=== PATIENT | male | born 1950 | race Caucasian/White ===

== ENCOUNTER 2017-07-27 19:29 | Inpatient (IN) ==
[2017-07-27 20:29] LABS: Basophils % 0.2 % (0.0-0.8); Eosinophils # 0.1 10*3/uL (0.0-0.87); Eosinophils % 0.4 % (0.00-10.9); Hematocrit 29.6 VOL% (42.0-52.0); Hemoglobin 9.4 GM/DL (14.0-18.0); Immature Granulocytes % 0.5 %; Immature Granulocytes Absolute 0.09 #; Lymphocytes # 1.6 10*3/uL (1.4-4.0); Lymphocytes % 8.9 % (21.2-54.2); Mean Corpuscular HGB Conc 31.8 GM/DL (32-36); Mean Corpuscular Hemoglobin 28 PG (27-34); Mean Corpuscular Volume 87.3 FL (87-102); Mean Platelet Volume 9.7 FL (9.6-12.0); Monocytes # 1.4 10*3/uL (0.11-0.8); Monocytes % 7.9 % (1.7-12.7); Neutrophils # 14.6 10*3/uL (1.4-7.4); Neutrophils % 82.1 % (38.7-73.9); Platelet Count 364 T/CUMM (130-400); Red Blood Count 3.39 MC/CUMM (3.8-5.5); Red Cell Distribution Width 15.6 % (9.3-17.3); White Blood Count 17.8 T/CUMM (4-12)
[2017-07-27 20:41] LABS: Alanine Aminotransferase 43 U/L (16-61); Albumin 2.3 G/DL (3.4-5.0); Alkaline Phosphatase 124 U/L (45-117); Aspartate Amino Transferase 25 U/L (0-37); Bilirubin,Total < 0.39 MG/DL (0.2-1.0); Blood Urea Nitrogen 117 MG/DL (7-18); Calcium 9.2 MG/DL (8.5-10.1); Glucose 106 MG/DL (74-106); Magnesium 2.9 MG/DL (1.8-2.4); Osmolality,Calculated 315.4 MOS/KG (273-304); Potassium 4.2 MMOL/L (3.5-5.1); Sodium 140 MMOL/L (136-145); Total Protein 8.1 G/DL (6.4-8.3)
[2017-07-27] MEDS ORDERED: SODIUM CHLORIDE 0.9% 1,650 ML IV ONE (20:41)
[2017-07-27] MEDS ORDERED: LEVOFLOXACIN INJ 750 MG in PREMIX 1 EACH IV SCH (21:00)
[2017-07-27] MEDS ORDERED: LEVOFLOXACIN INJ 150 ML IV ONE (21:16)
--- NOTE | 2017-07-27 22:04 | Emergency Department Note ---
Arrival - Arrival Chief Complaint: Upper Respiratory Stated Complaint: URI ED Nursing Triage Note: Per facility pt had a positive chest x-ray with infiltrate. Pt has posible pneumonia. Pt complaint of feeling bad and cough, fever since 1200 today. Facility states pt has slight AMS, according to EMS Fundraising Specialist. Mode of Arrival: Stretcher Limitations: Physical Limitation (Dysarthria) Source: EMS, Old Records Reviewed (Records from long-term facility), RN Notes Reviewed Time Seen by Provider: 07/27/17 20:29 - History of Present Illness HPI Narrative: The patient has a history of CVA and closed head injury. He is not able to communicate very much at all so the history is very limited. The secondhand report I get from the nursing facility says he has had a cough, fever and possibly altered mental status today. Apparently a chest x-ray was done which showed pneumonia. Allergies/Adverse Reactions: Allergies Allergy/AdvReac Type Severity Reaction Status Date / Time Penicillins AdvReac Unknown/Unable Verified 07/27/17 19:54 to obtain Home Medications: Home Medications Medication Instructions Recorded Confirmed Type Doxazosin [Cardura] 4 mg PER TUBE BEDTIME 03/31/15 07/27/17 History HYDROcodone/ACETAMIN 5-325 [[place] 1 tablet PER TUBE Q6H PRN 03/31/15 07/27/17 History 5-325] Losartan [Cozaar] 50 mg PER TUBE DAILY 03/31/15 07/27/17 History Tamsulosin [Flomax] 0.4 mg PER TUBE DAILY 03/31/15 07/27/17 History diazePAM [Valium] 2 mg PER TUBE TID 03/31/15 07/27/17 History Dextran 70/Hypromellose/Pf [Tears 2 drops BOTH EYES BEDTIME 07/27/17 07/27/17 History Naturale Free] Mag Hydrox/Aluminum Hyd/Simeth 30 ml PER TUBE Q4H PRN MDD 3 doses 07/27/1707/27 History [Maalox Maximum Strength Susp] in 24 hours Methenamine Hippurate [Hiprex] 1,000 gm PER TUBE BID 07/27/17 07/27/17 History Omeprazole 40 mg PER TUBE DAILY 07/27/17 07/27/17 History Ondansetron Tab [Zofran Tab] 4 mg PER TUBE Q8H PRN 07/27/17 07/27/17 History Review of System - Review of System ROS unobtainable: other (Dysarthria) - Review of System Constitutional: Present: fever Respiratory: Present: cough Medical,Surgical,& Family Hx - Medical History Cardio: History of: Hypertension Neurology: History of: Cerebrovascular Accident, Neurological Problems (brain injury) Respiratory: History of: COPD Genitourinary: History of: Prostate Problems (BPH) Musculoskeletal: History of: Musculoskeletal Problems (CHRONIC PAIN) Hematology: History of: Anemia - Surgical History Abdominal Surgeries: Patient denies: Abdominal Surgery, Appendectomy, Cholecystectomy - Family History Family History: noncontributory - Social History Smoking Status: Unknown if ever smoked Frequency of Alcohol Use: None Type of Drug Use: None Exam Physical Examination: GENERAL: Lethargic but arousable. Frail, chronically ill appearing. Speech is unintelligible. No acute distress. HEENT: Normocephalic and atraumatic. There is no nasal drainage. No pharyngeal erythema or exudate. Mucous membranes are very dry. NECK: Normal inspection. Supple. No lymphadenopathy or meningismus. Patient tends to hold his head to the left. LUNGS: No respiratory distress. Rales on both bases, left greater than right. HEART: Regular tachycardia. ABDOMEN: Soft, nontender and nondistended with normoactive bowel sounds. PEG tube in place. No tenderness, erythema or drainage around the PEG. BACK: Normal inspection. SKIN: Color normal. Warm and dry. EXTREMITIES: Nontender. Very thin. Patient capable of very little movement of the legs. NEUROLOGICAL/PSYCHIATRIC: Cannot assess orientation due to unintelligible speech. He is somewhat lethargic but arousable. Not able to cooperate fully with neuro exam. It is not clear whether this is baseline or not. He moves both upper extremities spontaneously. He is not capable of raising his lower extremities off of the table although he does move them a little bit. Sensation appears to be intact. Vital Signs: Vital Signs Temperature 100.1 F H 07/27/17 19:30 Pulse Rate 115 H 07/27/17 19:30 Respiratory Rate 26 H 07/27/17 20:15 Blood Pressure 101/75 07/27/17 19:30 O2 Sat by Pulse Oximetry 95 07/27/17 19:30 Course - Reevaluation(s) Reevaluation #1: I have discussed the patient with the hospitalist service who will see him and admit. Time: 22:04 Results - Labs CBC & BMP: 07/27/17 20:08 07/27/17 20:08 Lab Results: I have reviewed the patients labs Labs: Laboratory Tests 07/27/17 07/27/17 20:08 20:08 Calculated Osmolality 315.4 H Lactic Acid 1.0 Magnesium 2.9 H Total Bilirubin < 0.39 AST 25 ALT 43 Alkaline Phosphatase 124 H Globulin 5.8 H Disposition Clinical Impression: Pneumonia, Dehydration, Anemia Condition: Guarded Time of Disposition: 22:04
[2017-07-27 22:52] LABS: Apearance,Urine CLOUDY (Clear); Bilirubin,Urine Negative (Negative); Blood, Urine Moderate mg/dL (Negative); Glucose,Urine (UA) Negative (Negative); Ketones,Urine Negative (Negative); Nitrite,Urine Negative (Negative); Protein,Urine 30 MG/DL; RBC,Urine 47 /HPF (0-4); Urine Color Yellow (Yellow); Urine Urobilinogen < 2.0 EU/DL (0.2-1.0); WBC,Urine 579 /HPF (0-6)
[2017-07-27] MEDS ORDERED: ACETAMINOPHEN 325 MG TABLET PEG PRN (23:14)
[2017-07-27] MEDS ORDERED: ONDANSETRON 4 MG/2 ML VIAL IV PRN (23:14)
[2017-07-27] MEDS ORDERED: ALUMINUM/MAGNES/SIMETH MAX STR 30 ML UDCUP PER TUBE PRN (23:23)
--- NOTE | 2017-07-27 23:41 | Hospitalist History & Physical ---
Assessment and Plan - Time spent with patient Time spent with patient: Greater than 30 minutes (1) Severe sepsis Status: Acute Assessment and plan: Admit to hospitalist services. Monitored bed. Severe sepsis criteria: HR 115, RR 26, WBC 17.8, Source of infection: pneumonia and UTI, Creatinine 2.7. Initial Lactic acid was 1.0 in ED. Sepsis orders initiated in ED. Patient received fluid bolus, antibiotics and repeat lactic acid was ordered. Continue hydration with NS at 75 ml/hr. Continue antibiotic therapy with Levaquin 750 mg IV Q24 hours, pharmacy to renally dose to cover pneumonia and UTI. Blood cultures and urine cultures obtained in ED; follow. Repeat CBC and BMP in am. Current Visit: Yes (2) Pneumonia Status: Acute Assessment and plan: As above for Severe sepsis. DuoNebs Q6 and Q4 PRN. Repeat CXR in 48 hours. Current Visit: Yes (3) UTI (urinary tract infection) Status: Acute Assessment and plan: As above for Severe Sepsis. Current Visit: Yes (4) Acute kidney injury Status: Acute Assessment and plan: NS bolus given in ED per Sepsis protocol. Continue with gentle IV hydration with NS at 75 ml/hr. Repeat BMP in am. Current Visit: Yes (5) Hypermagnesemia Status: Acute Assessment and plan: Continue hydration. Repeat magnesium in am. Current Visit: Yes (6) Hypertension Status: Acute Assessment and plan: BP stable at this time. Continue home medications. Monitor. Current Visit: Yes (7) Anemia Status: Chronic Assessment and plan: Chronically anemic. Repeat CBC in am. Current Visit: Yes (8) DVT prophylaxis Status: Acute Assessment and plan: Lovenox 30 mg SQ daily. Current Visit: Yes History of Present Illness Chief complaint: Fever, Cough History of present illness: Mr. Gutierrez is a 66 year old male with a past medical history of CVA, closed head injury, HTN, BPH, anemia, GERD, constipation, and PEG tube placement who was to the ED tonight by prison staff with reports of fever, cough, and CXR consistent with pneumonia. Mr. Gutierrez communicates very little, so all history was obtained from ED staff and prison records. In the ED, his vitals were temp 100.1, HR 115, RR 26, BP 101/75 and O2 sats 95% on RA. Significant labs include WBC 17.8, H/H 9.4/29.6, Creatinine 2.7, Magnesium 2.9, and Lactic acid 1.0. UA indicates a UTI as well. Hospitalist services were consulted, and the patient will be admitted for further evaluation and treatment. Home medications were reviewed and reconciled. This patient is a full code. Home Medications Medication Instructions Recorded Confirmed Type Doxazosin [Cardura] 4 mg PER TUBE BEDTIME 03/31/15 07/27/17 History HYDROcodone/ACETAMIN 5-325 [[place] 1 tablet PER TUBE Q6H PRN 03/31/15 07/27/17 History 5-325] Losartan [Cozaar] 50 mg PER TUBE DAILY 03/31/15 07/27/17 History Tamsulosin [Flomax] 0.4 mg PER TUBE DAILY 03/31/15 07/27/17 History diazePAM [Valium] 2 mg PER TUBE TID 03/31/15 07/27/17 History Dextran 70/Hypromellose/Pf [Tears 2 drops BOTH EYES BEDTIME 07/27/17 07/27/17 History Naturale Free] Mag Hydrox/Aluminum Hyd/Simeth 30 ml PER TUBE Q4H PRN MDD 3 doses 07/27/1707/27 History [Maalox Maximum Strength Susp] in 24 hours Methenamine Hippurate [Hiprex] 1,000 gm PER TUBE BID 07/27/17 07/27/17 History Omeprazole 40 mg PER TUBE DAILY 07/27/17 07/27/17 History Ondansetron Tab [Zofran Tab] 4 mg PER TUBE Q8H PRN 07/27/17 07/27/17 History Allergies Allergy/AdvReac Type Severity Reaction Status Date / Time Penicillins AdvReac Unknown/Unable Verified 07/27/17 19:54 to obtain Medical,Surgical,& Family Hx - Medical History Cardio: History of: Hypertension Neurology: History of: Cerebrovascular Accident, Neurological Problems (brain injury) Respiratory: History of: COPD Genitourinary: History of: Prostate Problems (BPH) Musculoskeletal: History of: Musculoskeletal Problems (CHRONIC PAIN) Hematology: History of: Anemia - Surgical History Surgical History: noncontributory Abdominal Surgeries: Surgical HX of: Abdominal Surgery (PEG tube placement ) - Social History Smoking Status: Unknown if ever smoked Time spent discussing smoking cessation with patient: (Patient unable to communicate.) Frequency of Alcohol Use: None Type of Drug Use: None Marital Status: Single Lives With:: long term Functional capacity: bed bound ROS unobtainable: due to mental status (Patient unable to communicate due to Hx of CVA and closed head injury. Per prison staff, patient has had fever and cough. ) Exam - Constitutional Vitals: Period Temp Pulse Resp BP Sys/Martins Pulse Ox Last 24 Hr 100.1 F-100.1 F 115-115 26-26 101-101/75-75 95 Exam: Constitutional System: Low grade fever. Awake, alert and oriented x 2. [No] distress. [No] tremulousness. Head: Normocephalic, atraumatic. Ears, Nose and Throat System: No pain or tenderness. No epistaxis or discharge Eyes System: Pupils equal, round, and reactive. Extraocular muscles intact. Neck: Supple, without adenopathy, [No] jugular venous distention. No thyromegaly , neck mass, or prior surgery apparent. Respiratory System: Loose cough present, no sputum production. Chest [clear] to auscultation anteriorly, diminished posteriorly. Cardiovascular System: Heart with [tachycardic] rate and regular rhythm. [No] murmur. GI System: Abdomen [soft], [non]tender. [Normo]active bowel sounds present. PEG tube noted. Musculoskeletal System: Limbs with [no] pedal edema. [Full] distal pulses. Normal capillary refill. Neurological System: Minimal verbal communication. [No other discernable] sensory deficit. Psychiatric System: Minimal verbal communication. Results - Labs CBC & BMP: 07/27/17 20:08 07/27/17 20:08 Lab Results: I have reviewed the past 24 hour labs - Diagnostic Findings Procedure: Chest x-ray: other (Report pending. ) Sepsis - Sepsis Classification of Sepsis: Severe Sepsis Sepsis documentation within 6 hours of presentation: fluid change - Physical Exam Respiratory exam: clear to auscultation bilaterally (anteriorly), decreased breath sounds (posteriorly ) Capillary Refill: Less Than 3 Seconds Peripheral pulses: Radial (L): 5+, Radial (R): 5+, Dorsalis Pedis (L) PM: 5+, Dorsalis Pedis (R) PM: 5+, Posterior Tibialis (L): 5+, Posterior Tibialis (R): 5 + Cardiovascular exam: tachycardia Skin exam: normal color
[2017-07-28] MEDS ORDERED: ALBUTEROL/IPRATROPIUM 3 ML NEB RESP TX PRN (00:05)
[2017-07-28] MEDS: ALBUTEROL/IPRATROPIUM 3 ML NEB RESP TX SCH ×4 (00:20→19:35)
[2017-07-28] MEDS: SODIUM CHLORIDE 0.9% 1,000 ML IV SCH ×2 (00:30→13:41)
[2017-07-28 01:14] LABS: Basophils % 0.1 % (0.0-0.8); Eosinophils # 0.1 10*3/uL (0.0-0.87); Eosinophils % 0.6 % (0.00-10.9); Hematocrit 27.4 VOL% (42.0-52.0); Hemoglobin 8.5 GM/DL (14.0-18.0); Immature Granulocytes % 0.6 %; Immature Granulocytes Absolute 0.08 #; Lymphocytes # 1.9 10*3/uL (1.4-4.0); Lymphocytes % 13.5 % (21.2-54.2); Mean Corpuscular Hemoglobin 28 PG (27-34); Mean Corpuscular Volume 89.5 FL (87-102); Mean Platelet Volume 10.1 FL (9.6-12.0); Monocytes % 7.5 % (1.7-12.7); Neutrophils # 10.8 10*3/uL (1.4-7.4); Neutrophils % 77.7 % (38.7-73.9); Platelet Count 306 T/CUMM (130-400); Red Blood Count 3.06 MC/CUMM (3.8-5.5); Red Cell Distribution Width 15.6 % (9.3-17.3); White Blood Count 13.9 T/CUMM (4-12)
[2017-07-28 02:05] LABS: Calcium 8.3 MG/DL (8.5-10.1); Osmolality,Calculated 320.7 MOS/KG (273-304); Potassium 4.1 MMOL/L (3.5-5.1)
[2017-07-28] MEDS: DOXAZOSIN 4 MG TABLET PER TUBE SCH ×2 (02:49→21:36)
--- NOTE | 2017-07-28 07:52 | XRay Report ---
XR chest 1V portable Indication: Upper respiratory infection possible pneumonia Comparison: Chest x-ray May 09, 2007 Technique: Single Findings: Igom-[id number] cardiomegaly. [id number] bilateral infrahilar atelectasis/consolidation. Visualized osseous and surrounding soft tissue structures demonstrate no acute abnormality. IMPRESSION: As above. PROCEDURE INTERPRETED AT [facility] DEPARTMENT OF RADIOLOGY Final Report Signed by: Dr Nicho Murphy
[2017-07-28] MEDS ORDERED: ENOXAPARIN 30 MG/0.3 ML SYRINGE SUBCUT SCH (09:00)
[2017-07-28] MEDS ORDERED: LOSARTAN 50 MG TABLET PER TUBE SCH (09:00)
[2017-07-28] MEDS: LANSOPRAZOLE ODT 30 MG TABLET PO SCH (09:16)
[2017-07-28] MEDS: DIAZEPAM 2 MG TABLET PER TUBE SCH ×3 (09:17→21:35)
[2017-07-28] MEDS: TAMSULOSIN 0.4 MG CAPSULE PO SCH (09:17)
[2017-07-28] MEDS: METHENAMINE HIPPURATE 1 GM TABLET PER TUBE SCH ×2 (09:18→21:35)
[2017-07-28] MEDS ORDERED: DEXTROSE 50% 25 GM/50 ML SYRINGE IV PRN (09:26)
[2017-07-28] MEDS ORDERED: GLUCAGON 1 MG VIAL IM PRN (09:26)
--- NOTE | 2017-07-28 12:28 | Hospitalist Progress Note ---
Assessment and Plan - Time spent with patient Time spent with patient: Less than 30 minutes (1) Pneumonia Status: Acute Assessment and plan: 07/28/17 Pneumonia: continue antibiotic coverage and duonebs. Blood cultures obtained in the ED, pending results. UTI: continue antibiotic coverage. Urine culture obtained in the ED, pending results. HTN: Chronic: Controlled: continue current medications and treatment. Acute renal injury: improving down to BUN 107 and creatinine 2.20: down from 117 & 2.70. ontinue IV fluids at 75cc/hr; repeat a.m. labs. Magnesium improving down to 2.5 from 2.9. repeat a.m. labs Chronic anemia: repeat a.m. labs and monitor H&H Will discuss with Dr Jesus for further recommendations with care. Current Visit: Yes (2) Hypermagnesemia Status: Acute Current Visit: Yes (3) UTI (urinary tract infection) Status: Acute Current Visit: Yes (4) Anemia Status: Chronic Current Visit: Yes Hospitalist: Subjective Interval history: Mr Gutierrez seen and chart reviewed. Significant history of closed heady injury , CVA, bed bound, HTN, admitted 07/27/17 for pneumonia and UTI sepsis. Blood and urine cultures obtained in the ED upon arrival and pending results. Patient is unable to clearly verbally communicate, but alert, awake and attempting to talk to me upon exam this morning. He is no apparent distress. 02 at 2l NC in use. No elevation in temperature noted this morning, BP stabel RR 22 ; O2 SAT 96. Exam - Constitutional Vitals: Period Temp Pulse Resp BP Sys/Martins Pulse Ox Last 24 Hr 97.3 F-100.1 F 51-128 18-36 101-124/69-78 94-99 General appearance: normal weight, no acute distress - Head Head exam: Present: normocephalic - Eye Eye exam: Present: EOMI - Neck Neck exam: Absent: thyromegaly - Respiratory Respiratory exam: Present: decreased breath sounds - Cardiovascular Cardiovascular exam: Present: regular rate and rhythm, tachycardia - GI/Abdominal GI/Abdominal exam: Present: normal bowel sounds, soft. Absent: guarding, tenderness, rebound - Extremities Exam Extremities exam: Present: normal capillary refill, other (contracted, pulses palpable). Absent: edema - Neurological Exam Neurological exam: Present: alert, other (minimal verbal communication (hx: CVA and closed head injury)) - Psychiatric Psychiatric exam: Absent: agitated, anxious - Skin Skin exam: Present: normal color, warm, dry Results - Labs CBC & BMP: 07/28/17 00:46 07/28/17 00:46 Lab Results: I have reviewed the past 24 hour labs
[2017-07-28] MEDS: POLYVINYL ALCOHOL 1.4% OPH SOLN 15 ML BOTTLE BOTH EYES SCH (21:36)
[2017-07-29] MEDS: ALBUTEROL/IPRATROPIUM 3 ML NEB RESP TX SCH ×4 (00:20→19:01)
[2017-07-29] MEDS: SODIUM CHLORIDE 0.9% 1,000 ML IV SCH (02:03)
[2017-07-29 06:08] LABS: Basophils % 0.1 % (0.0-0.8); Hematocrit 26.7 VOL% (42.0-52.0); Hemoglobin 8.2 GM/DL (14.0-18.0); Immature Granulocytes % 0.6 %; Immature Granulocytes Absolute 0.07 #; Lymphocytes # 1.3 10*3/uL (1.4-4.0); Lymphocytes % 10.7 % (21.2-54.2); Mean Corpuscular HGB Conc 30.7 GM/DL (32-36); Mean Corpuscular Hemoglobin 28 PG (27-34); Mean Corpuscular Volume 90.5 FL (87-102); Mean Platelet Volume 9.7 FL (9.6-12.0); Monocytes # 0.8 10*3/uL (0.11-0.8); Monocytes % 6.7 % (1.7-12.7); Neutrophils # 10.2 10*3/uL (1.4-7.4); Neutrophils % 81.9 % (38.7-73.9); Platelet Count 315 T/CUMM (130-400); Red Blood Count 2.95 MC/CUMM (3.8-5.5); Red Cell Distribution Width 15.6 % (9.3-17.3); White Blood Count 12.5 T/CUMM (4-12)
[2017-07-29 06:47] LABS: Calcium 8.9 MG/DL (8.5-10.1); Magnesium 2.6 MG/DL (1.8-2.4); Osmolality,Calculated 326.4 MOS/KG (273-304); Potassium 3.9 MMOL/L (3.5-5.1)
[2017-07-29 06:50] LABS: Calcium 8.9 MG/DL (8.5-10.1); Magnesium 2.4 MG/DL (1.8-2.4); Osmolality,Calculated 327.3 MOS/KG (273-304); Potassium 3.9 MMOL/L (3.5-5.1); Prealbumin 16.9 MG/DL (20-40)
--- NOTE | 2017-07-29 07:12 | XRay Report ---
XR chest 1V portable Indication: Pneumonia Comparison: 27 July 2017 Findings: The heart and mediastinum are normal in size and configuration. The pulmonary vascularity is normal in caliber. There is increased bilateral lower lung density is similar to previous exam. No other lung infiltrates, effusions, pneumothorax or other abnormality is demonstrated. Impression: No significant changes. PROCEDURE INTERPRETED AT [facility] DEPARTMENT OF RADIOLOGY Final Report Signed by: Dr. Paulino Campbell
[2017-07-29] MEDS: TAMSULOSIN 0.4 MG CAPSULE PO SCH (09:46)
[2017-07-29] MEDS: LANSOPRAZOLE ODT 30 MG TABLET PO SCH (09:46)
[2017-07-29] MEDS: DIAZEPAM 2 MG TABLET PER TUBE SCH ×3 (09:46→21:48)
[2017-07-29] MEDS: METHENAMINE HIPPURATE 1 GM TABLET PER TUBE SCH ×2 (09:46→21:48)
[2017-07-29] MEDS: ENOXAPARIN 40 MG/0.4 ML SYRINGE SUBCUT SCH (10:35)
--- NOTE | 2017-07-29 12:48 | Hospitalist Progress Note ---
Assessment and Plan - Time spent with patient Time spent with patient: Less than 30 minutes (1) Pneumonia Status: Acute Assessment and plan: 07/28/17 Pneumonia: continue antibiotic coverage and duonebs. Blood cultures obtained in the ED, pending results. UTI: continue antibiotic coverage. Urine culture obtained in the ED, pending results. HTN: Chronic: Controlled: continue current medications and treatment. Acute renal injury: improving down to BUN 107 and creatinine 2.20: down from 117 & 2.70. ontinue IV fluids at 75cc/hr; repeat a.m. labs. Magnesium improving down to 2.5 from 2.9. repeat a.m. labs Chronic anemia: repeat a.m. labs and monitor H&H Will discuss with Dr Jesus for further recommendations with care. 07/29/17 Pneumonia: NO elevation in temperature; WBC down - 12.5 continue antibiotic duonebs; blood cultures pending final results UTI: continue antibiotic, Preliminary culture gram negative rods; final pending HTN: controlled: continue current medications ACUTE renal injury: Improved, BUN 71 and creatinine 1.60; Sodium increased to 154: discontinued NS and started 200cc free water flushes every 4 hours with PEG Magnesium 2.6 this a.m.: continue to monitor; repeat a.m. labs Chronic anemia: H&H 8.2 & 26.7: repeat am labs and monitor Will discuss with Dr Jesus for further recommendations with care. Current Visit: Yes (2) Hypermagnesemia Status: Acute Current Visit: Yes (3) UTI (urinary tract infection) Status: Acute Current Visit: Yes (4) Anemia Status: Chronic Current Visit: Yes Hospitalist: Subjective Interval history: Mr Gutierrez seen and chart reviewed. He appears a little more alert this morning , and can understand some answers (yes or no) when asked questions but not sure how coherent he actually is. Patient is currently receiving PEG tube feedings. Exam - Constitutional Vitals: Period Temp Pulse Resp BP Sys/Martins Pulse Ox Last 24 Hr 97.7 F-99.2 F 101-124 20-32 106-124/65-74 92-99 General appearance: no acute distress, under weight - Head Head exam: Present: normocephalic - Eye Eye exam: Present: EOMI - Neck Neck exam: Absent: thyromegaly - Respiratory Respiratory exam: Present: decreased breath sounds. Absent: accessory muscle use, stridor, wheezes - Cardiovascular Cardiovascular exam: Present: regular rate and rhythm - GI/Abdominal GI/Abdominal exam: Present: normal bowel sounds, soft. Absent: rebound - Extremities Exam Extremities exam: Present: other (bilaterally contracted). Absent: edema - Neurological Exam Neurological exam: Present: alert, other (minimal verbal communication ability) - Psychiatric Psychiatric exam: Absent: agitated, anxious - Skin Skin exam: Present: normal color, warm, dry Results - Labs CBC & BMP: 07/29/17 04:51 07/29/17 04:51 Lab Results: I have reviewed the past 24 hour labs - Diagnostic Findings Procedure: Chest x-ray: report reviewed by me (no significant changes)
[2017-07-29] MEDS: POLYVINYL ALCOHOL 1.4% OPH SOLN 15 ML BOTTLE BOTH EYES SCH (21:48)
[2017-07-29] MEDS: DOXAZOSIN 4 MG TABLET PER TUBE SCH (21:48)
[2017-07-29] MEDS: LEVOFLOXACIN INJ 750 MG in PREMIX 1 EACH IV SCH (21:48)
[2017-07-30] MEDS: ALBUTEROL/IPRATROPIUM 3 ML NEB RESP TX SCH ×4 (00:45→19:31)
[2017-07-30 03:16] LABS: Basophils % 0.2 % (0.0-0.8); Eosinophils % 0.3 % (0.00-10.9); Hematocrit 27.4 VOL% (42.0-52.0); Hemoglobin 8.1 GM/DL (14.0-18.0); Immature Granulocytes % 0.8 %; Immature Granulocytes Absolute 0.09 #; Lymphocytes # 1.7 10*3/uL (1.4-4.0); Mean Corpuscular HGB Conc 29.6 GM/DL (32-36); Mean Corpuscular Hemoglobin 27 PG (27-34); Mean Corpuscular Volume 90.4 FL (87-102); Mean Platelet Volume 9.7 FL (9.6-12.0); Monocytes # 0.9 10*3/uL (0.11-0.8); Monocytes % 7.9 % (1.7-12.7); Neutrophils # 8.8 10*3/uL (1.4-7.4); Neutrophils % 75.8 % (38.7-73.9); Platelet Count 289 T/CUMM (130-400); Red Blood Count 3.03 MC/CUMM (3.8-5.5); Red Cell Distribution Width 15.6 % (9.3-17.3); White Blood Count 11.6 T/CUMM (4-12)
[2017-07-30 03:46] LABS: Calcium 8.6 MG/DL (8.5-10.1); Magnesium 2.3 MG/DL (1.8-2.4); Potassium 3.9 MMOL/L (3.5-5.1)
[2017-07-30] MEDS: TAMSULOSIN 0.4 MG CAPSULE PO SCH (08:58)
[2017-07-30] MEDS: ENOXAPARIN 40 MG/0.4 ML SYRINGE SUBCUT SCH (08:58)
[2017-07-30] MEDS: METHENAMINE HIPPURATE 1 GM TABLET PER TUBE SCH ×2 (08:58→21:55)
[2017-07-30] MEDS: LANSOPRAZOLE ODT 30 MG TABLET PO SCH (08:58)
[2017-07-30] MEDS: DIAZEPAM 2 MG TABLET PER TUBE SCH ×3 (08:58→21:55)
--- NOTE | 2017-07-30 09:23 | XRay Report ---
XR chest 1V portable Indication: Shortness of breath Comparison: 29 July 2017 Findings: The heart and mediastinum are stable in size and configuration. The pulmonary vascularity is normal in caliber. No lung infiltrates, effusions, pneumothorax or other abnormality is demonstrated. Impression: No acute cardiac pulmonary disease. PROCEDURE INTERPRETED AT [facility] DEPARTMENT OF RADIOLOGY Final Report Signed by: Dr. Paulino Campbell
--- NOTE | 2017-07-30 13:20 | Hospitalist Progress Note ---
Assessment and Plan - Time spent with patient Time spent with patient: Less than 30 minutes (1) Pneumonia Status: Acute Assessment and plan: 07/28/17 Pneumonia: continue antibiotic coverage and duonebs. Blood cultures obtained in the ED, pending results. UTI: continue antibiotic coverage. Urine culture obtained in the ED, pending results. HTN: Chronic: Controlled: continue current medications and treatment. Acute renal injury: improving down to BUN 107 and creatinine 2.20: down from 117 & 2.70. ontinue IV fluids at 75cc/hr; repeat a.m. labs. Magnesium improving down to 2.5 from 2.9. repeat a.m. labs Chronic anemia: repeat a.m. labs and monitor H&H Will discuss with Dr Asher for further recommendations with care. 07/29/17 Pneumonia: NO elevation in temperature; WBC down - 12.5 continue antibiotic duonebs; blood cultures pending final results UTI: continue antibiotic, Preliminary culture gram negative rods; final pending HTN: controlled: continue current medications ACUTE renal injury: Improved, BUN 71 and creatinine 1.60; Sodium increased to 154: discontinued NS and started 200cc free water flushes every 4 hours with PEG Magnesium 2.6 this a.m.: continue to monitor; repeat a.m. labs Chronic anemia: H&H 8.2 & 26.7: repeat am labs and monitor Will discuss with Dr Asher for further recommendations with care. 07/30/17 Pneumonia: continue levaquin, duonebs; final blood cultures pending results UTI: final culture: Proteus mirabilis and will add antibiotic coverage with sensitivity HTN: controlled current medications; discuss with Dr asher heart rate elevation; feels it is dehydration related and start D5W Acute Renal Injury: Improved; BUN 59 and creatinine 1.20 Sodium increased (157): will continue free water flushes every 4 hours 200cc w/ PEG and add D5W @ 75cc/hr Magnesium improved to 2.3 Chronic Anemia: H&H remains stable 8.1 & 27.4 repeat a.m. labs Will discuss with Dr Asher for further recommendations with care. Current Visit: Yes (2) Hypermagnesemia Status: Acute Current Visit: Yes (3) UTI (urinary tract infection) Status: Acute Current Visit: Yes (4) Anemia Status: Chronic Current Visit: Yes Hospitalist: Subjective Interval history: Mr Gutierrez seen and chart reviewed. He is a little more alert this morning. He complains of feeling "bad". Exam - Constitutional Vitals: Period Temp Pulse Resp BP Sys/Martins Pulse Ox Last 24 Hr 97.4 F-102.3 F 102-143 17-36 95-135/62-86 95-99 General appearance: no acute distress, under weight - Head Head exam: Present: normocephalic - Eye Eye exam: Present: EOMI - Neck Neck exam: Absent: thyromegaly - Respiratory Respiratory exam: Present: decreased breath sounds. Absent: wheezes - Cardiovascular Cardiovascular exam: Present: regular rate and rhythm - GI/Abdominal GI/Abdominal exam: Present: normal bowel sounds, soft. Absent: tenderness, rebound - Extremities Exam Extremities exam: Present: other (contracted). Absent: edema - Neurological Exam Neurological exam: Present: alert - Psychiatric Psychiatric exam: Present: normal affect, normal mood. Absent: agitated, anxious - Skin Skin exam: Present: normal color, warm, dry Results - Labs CBC & BMP: 07/30/17 02:06 07/30/17 02:06 Lab Results: I have reviewed the past 24 hour labs - Diagnostic Findings Procedure: Chest x-ray: report reviewed by me (nothing acute 07/30/17)
[2017-07-30] MEDS: DEXTROSE 5% 1,000 ML IV SCH (14:32)
[2017-07-30] MEDS: ERTAPENEM 1,000 MG in SODIUM CHLORIDE 0.9% 50 ML IV SCH (16:54)
[2017-07-30] MEDS: POLYVINYL ALCOHOL 1.4% OPH SOLN 15 ML BOTTLE BOTH EYES SCH (21:55)
[2017-07-30] MEDS: DOXAZOSIN 4 MG TABLET PER TUBE SCH (21:55)
[2017-07-31] MEDS: ALBUTEROL/IPRATROPIUM 3 ML NEB RESP TX SCH ×4 (00:24→17:52)
[2017-07-31] MEDS: DEXTROSE 5% 1,000 ML IV SCH ×2 (03:25→20:29)
[2017-07-31 06:55] LABS: Basophils % 0.2 % (0.0-0.8); Eosinophils # 0.2 10*3/uL (0.0-0.87); Eosinophils % 1.3 % (0.00-10.9); Hematocrit 24.6 VOL% (42.0-52.0); Hemoglobin 7.7 GM/DL (14.0-18.0); Immature Granulocytes % 0.5 %; Immature Granulocytes Absolute 0.07 #; Lymphocytes # 1.8 10*3/uL (1.4-4.0); Lymphocytes % 13.9 % (21.2-54.2); Mean Corpuscular HGB Conc 31.3 GM/DL (32-36); Mean Corpuscular Hemoglobin 28 PG (27-34); Mean Corpuscular Volume 89.8 FL (87-102); Monocytes # 0.9 10*3/uL (0.11-0.8); Monocytes % 6.9 % (1.7-12.7); Neutrophils # 10.2 10*3/uL (1.4-7.4); Neutrophils % 77.2 % (38.7-73.9); Platelet Count 291 T/CUMM (130-400); Red Blood Count 2.74 MC/CUMM (3.8-5.5); Red Cell Distribution Width 15.7 % (9.3-17.3); White Blood Count 13.3 T/CUMM (4-12)
[2017-07-31 07:31] LABS: Calcium 8.3 MG/DL (8.5-10.1); Magnesium 1.9 MG/DL (1.8-2.4); Osmolality,Calculated 309.9 MOS/KG (273-304); Potassium 3.8 MMOL/L (3.5-5.1)
[2017-07-31] MEDS: ENOXAPARIN 40 MG/0.4 ML SYRINGE SUBCUT SCH (09:09)
[2017-07-31] MEDS: LANSOPRAZOLE ODT 30 MG TABLET PO SCH (09:09)
[2017-07-31] MEDS: TAMSULOSIN 0.4 MG CAPSULE PO SCH (09:09)
[2017-07-31] MEDS: DIAZEPAM 2 MG TABLET PER TUBE SCH ×3 (09:09→22:05)
[2017-07-31] MEDS: METHENAMINE HIPPURATE 1 GM TABLET PER TUBE SCH ×2 (09:15→22:06)
--- NOTE | 2017-07-31 10:48 | Hospitalist Progress Note ---
Assessment and Plan (1) Dehydration Status: Acute Assessment and plan: Impression: 1. Volume depletion/dehydration 2. Prior stroke with right-sided hemiparesis 3. Questionable pneumonia Plan: Continue current care. This will include volume resuscitation and antibiotics. This note was completed using [employer] voice recognition software. There may be circuit breaker mechanic errors as a result. Current Visit: Yes Hospitalist: Subjective Interval history: Follow-up dehydration and possible pneumonia. The patient lies on the bed and will follow suggestions, but does not speak. He apparently has suffered a previous left hemispheric cerebral infarction. Staff has noted some difficulty breathing, and this appears to be primarily due to an increased amount of oral secretions which the patient is not able to handle. Exam - Constitutional Vitals: Period Temp Pulse Resp BP Sys/Martins Pulse Ox Last 24 Hr 95.4 F-100.7 F 100-130 18-40 94-118/55-78 95-99 Vital signs are noted above. Oral cavity has multiple dried exudates on the roof of the mouth and the tongue. Heart is regular with distant tones. He has rhonchi in the chest. PEG tube is intact. Bowel sounds are positive. He is awake and looks around, but does not speak. Results - Labs CBC & BMP: 07/31/17 04:57 07/31/17 04:57 Lab Results: I have reviewed the past 24 hour labs (Kidney function is improving )
[2017-07-31] MEDS: ERTAPENEM 1,000 MG in SODIUM CHLORIDE 0.9% 50 ML IV SCH (16:34)
[2017-07-31] MEDS: POLYVINYL ALCOHOL 1.4% OPH SOLN 15 ML BOTTLE BOTH EYES SCH (22:06)
[2017-07-31] MEDS: DOXAZOSIN 4 MG TABLET PER TUBE SCH (22:06)
[2017-07-31] MEDS: LEVOFLOXACIN INJ 750 MG in PREMIX 1 EACH IV SCH (22:07)
[2017-08-01] MEDS: ALBUTEROL/IPRATROPIUM 3 ML NEB RESP TX SCH ×4 (01:10→19:33)
[2017-08-01] MEDS: TAMSULOSIN 0.4 MG CAPSULE PO SCH (08:41)
[2017-08-01] MEDS: ENOXAPARIN 40 MG/0.4 ML SYRINGE SUBCUT SCH (08:41)
[2017-08-01] MEDS: LANSOPRAZOLE ODT 30 MG TABLET PO SCH (08:41)
[2017-08-01] MEDS: METHENAMINE HIPPURATE 1 GM TABLET PER TUBE SCH ×2 (08:41→21:35)
[2017-08-01] MEDS: DIAZEPAM 2 MG TABLET PER TUBE SCH ×3 (08:41→21:36)
--- NOTE | 2017-08-01 10:58 | Hospitalist Progress Note ---
Assessment and Plan (1) Dehydration Status: Acute Assessment and plan: Impression: 1. Volume depletion/dehydration, improved 2. Prior stroke with right-sided hemiparesis 3. Pneumonia, with improving chest x-ray Plan: Discontinue antibiotics. Recheck chest x-ray and lab in the morning. He should be able to go back to the intermediate if these results look good. This note was completed using [employer] voice recognition software. There may be medication care manager errors as a result. Current Visit: Yes Hospitalist: Subjective Interval history: Follow-up pneumonia, acute kidney injury, old stroke. The patient's chest x-ray is cleared. I think we can discontinue his IV antibiotics. His kidney function has returned to normal. He is still poorly responsive, but I do not know his baseline. However, I suspect he is close. Exam - Constitutional Vitals: Period Temp Pulse Resp BP Sys/Martins Pulse Ox Last 24 Hr 97.2 F-98.5 F 100-139 16-36 81-118/57-70 94-99 Vital signs are noted above. 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 Heart is regular with very distant tones. He has a few scattered rhonchi in the chest. PEG site looks good. He awakens and looks around, but does not follow suggestions Results - Labs CBC & BMP: 07/31/17 04:57 07/31/17 04:57
[2017-08-01] MEDS: DEXTROSE 5% 1,000 ML IV SCH (18:28)
[2017-08-01] MEDS: DOXAZOSIN 4 MG TABLET PER TUBE SCH (21:35)
[2017-08-01] MEDS: POLYVINYL ALCOHOL 1.4% OPH SOLN 15 ML BOTTLE BOTH EYES SCH (21:35)
[2017-08-02] MEDS: ALBUTEROL/IPRATROPIUM 3 ML NEB RESP TX SCH ×4 (00:48→20:00)
[2017-08-02 06:31] LABS: Basophils % 0.2 % (0.0-0.8); Eosinophils # 0.3 10*3/uL (0.0-0.87); Hemoglobin 7.9 GM/DL (14.0-18.0); Immature Granulocytes % 0.8 %; Lymphocytes # 1.9 10*3/uL (1.4-4.0); Lymphocytes % 15.3 % (21.2-54.2); Mean Corpuscular HGB Conc 31.6 GM/DL (32-36); Mean Corpuscular Hemoglobin 28 PG (27-34); Mean Platelet Volume 10.1 FL (9.6-12.0); Monocytes # 0.7 10*3/uL (0.11-0.8); Monocytes % 5.4 % (1.7-12.7); Neutrophils # 9.4 10*3/uL (1.4-7.4); Neutrophils % 76.3 % (38.7-73.9); Platelet Count 292 T/CUMM (130-400); Red Blood Count 2.84 MC/CUMM (3.8-5.5); Red Cell Distribution Width 15.6 % (9.3-17.3); White Blood Count 12.3 T/CUMM (4-12)
[2017-08-02 07:03] LABS: Calcium 8.1 MG/DL (8.5-10.1); Magnesium 1.8 MG/DL (1.8-2.4); Osmolality,Calculated 286.5 MOS/KG (273-304); Phosphorous 2.7 MG/DL (2.5-4.9); Potassium 4.2 MMOL/L (3.5-5.1); Prealbumin 15.6 MG/DL (20-40)
--- NOTE | 2017-08-02 09:21 | XRay Report ---
History: Pneumonia Date: 08/02/2017 Study: Chest x-ray AP portable Comparison exam: July 30, 2017 The cardiac silhouette is not enlarged. The mediastinal contour is unchanged. The pulmonary vasculature is not engorged. There is some increasing atelectasis/infiltrate in the lingula and left lower lobe compatible with pneumonia. There is mild platelike scar or subsegmental atelectasis in the right mid to lower lung. Osseous structures are unchanged. Impression: Increasing left basilar infiltrate compatible with pneumonia. Follow-up films recommended PROCEDURE INTERPRETED AT [facility] DEPARTMENT OF RADIOLOGY Final Report Signed by: Dr. Zari Jensen
[2017-08-02] MEDS: DEXTROSE 5% 1,000 ML IV SCH (09:28)
[2017-08-02] MEDS: ENOXAPARIN 40 MG/0.4 ML SYRINGE SUBCUT SCH (09:30)
[2017-08-02] MEDS: METHENAMINE HIPPURATE 1 GM TABLET PER TUBE SCH ×2 (09:31→22:30)
[2017-08-02] MEDS: TAMSULOSIN 0.4 MG CAPSULE PO SCH (09:31)
[2017-08-02] MEDS: LANSOPRAZOLE ODT 30 MG TABLET PO SCH (09:31)
[2017-08-02] MEDS: DIAZEPAM 2 MG TABLET PER TUBE SCH (09:31)
[2017-08-02] MEDS ORDERED: SODIUM CHLORIDE 0.9% 250 ML IV PRN ×2 (11:52→12:23)
--- NOTE | 2017-08-02 13:13 | Discharge Summary ---
<Tahira Mendez - Last Filed: 08/02/17 12:37> Hospital Course - Hospital Course Hospital Course: Mr Gutierrez 66 y/o W/PMHx of CVA, closed head injury, COPD, Anemia, with limited verbal communication ability presented [facility] for further evaluation of fever, cough and CXR consistent with pneumonia. IN ED: his vitals were temp 100.1, HR 115, RR 26, BP 101/75 and O2 sats 95% on RA. Significant labs include WBC 17.8, H/H 9.4/29.6, Creatinine 2.7, Magnesium 2.9, and Lactic acid 1.0. UA indicates a UTI as well. Hospitalist services were consulted, and the patient will be admitted on monitored bed for further evaluation and treatment. Patient with pneumonia and sepsis, acute renal failure which appears acutely related to being dehydrated. IV fluids for dehydration, added free water through his PEG tube. Renal dose Antibiotics with invanz for pneumonia with breathing treatments, blood cultures drawn in ED. Urine noted for UTI and urine culture obtained. Pneumonia improved with antibiotics, breathing treatments. Hypernatremia resolved. Acute renal failure improved with hydration. Blood culture final was negative for growth. Urine culture final resulted Proteus Mirabilis sensitive to Invanz and treated with abx. Today 08/02/17 Patient is stable. Vital signs improved and without reoccurrence of temperature elevation. Labs improved. [facility] be [facility] for [facility] of care with a few more days of levaquin for pneumonia and ceftin for his uti. Patient has evidence of anemia of chronic disease and will receive 1 unit of packed red blood cells prior to returning to the [facility] today. He will continue on tube feedings with free water through his PEG tube and will remained strict n.p.o. Patient seen and examined. Hospital course reviewed and edited. Diagnosis - Discharge Diagnosis (1) Pneumonia Status: Acute (2) Hypermagnesemia Status: Acute (3) UTI (urinary tract infection) Status: Acute (4) Anemia Status: Chronic Discharge Plan - Discharge Data Disposition: Disch/Xfer to Snf - Discharge Medications New Acetaminophen Tab [Tylenol Tab] 325 mg PEG Q4H PRN tablet PRN Reason: fever, headache/body aches Lansoprazole Odt Tab [Prevacid Solutab] 30 mg PO DAILY tablet Zinc Oxide Paste [Desitin Paste] 1 applic TOP PRN PRN applic PRN Reason: Diaper Rash Cefuroxime Tab [Ceftin] 500 mg PO BID #10 tablet Albuterol/Ipratropium Neb [Duoneb] 3 ml RESP TX RT Q6H Levofloxacin Tab [Levaquin Tab] 750 mg PO DAILY #5 tablet Continue Tamsulosin [Flomax] 0.4 mg PER TUBE DAILY Losartan [Cozaar] 50 mg PER TUBE DAILY Doxazosin [Cardura] 4 mg PER TUBE BEDTIME Methenamine Hippurate [Hiprex] 1,000 gm PER TUBE BID Ondansetron Tab [Zofran Tab] 4 mg PER TUBE Q8H PRN PRN Reason: Nausea/Vomiting Dextran 70/Hypromellose/Pf [Tears Naturale Free] 2 drops BOTH EYES BEDTIME Mag Hydrox/Aluminum Hyd/Simeth [Maalox Maximum Strength Susp] 30 ml PER TUBE Q4H PRN MDD 3 doses in 24 hours PRN Reason: Indigestion Changed diazePAM [Valium] 2 mg PER TUBE BID PRN #20 tablet PRN Reason: Agitation Discontinued HYDROcodone/ACETAMIN 5-325 [[place] 5-325] 1 tablet PER TUBE Q6H PRN PRN Reason: Pain Omeprazole 40 mg PER TUBE DAILY - Follow Up or Referral - Forms/Instructions Exam - Constitutional Vitals: Period Temp Pulse Resp BP Sys/Martins Pulse Ox Last 24 Hr 97.1 F-98.4 F 71-136 16-36 92-138/60-76 95-99 Discharge Results Procedures and tests throughout hospitalization: Pending Orders 08/02/17 04:37 Red Blood Cells Leuko Red Stat Type and Screen Stat Labs on day of discharge: Labs from last 24 hours 08/02/17 08/02/17 08/02/17 Unknown 04:39 04:39 WBC 12.3 H RBC 2.84 L Hgb 7.9 L Hct 25.0 L MCV 88.0 MCH 28 MCHC 31.6 L RDW 15.6 Plt Count 292 MPV 10.1 Neut % (Auto) 76.3 H Lymph % (Auto) 15.3 L [place] % (Auto) 5.4 Eos % (Auto) 2.0 Baso % (Auto) 0.2 Neut # (Auto) 9.4 H Lymph # (Auto) 1.9 [place] # (Auto) 0.7 Eos # (Auto) 0.3 Baso # (Auto) 0.0 Immature Gran % 0.8 Nucleated RBC % 0.0 Immature Gran # 0.10 Nucleated RBCs # 0.00 Immature Plt Fraction 0.0 Sodium 139 Potassium 4.2 Chloride 106 Carbon Dioxide 25 Anion Gap 12.2 BUN 39 H Creatinine 1.30 GFR Calculation 56 BUN/Creatinine Ratio 30.00 H Glucose 124 H Calculated Osmolality 286.5 Calcium 8.1 L Phosphorus 2.7 Magnesium 1.8 Prealbumin 15.6 L Blood Type B NEGATIVE Antibody Screen Crossmatch 08/02/17 04:37 WBC RBC Hgb Hct MCV MCH MCHC RDW Plt Count MPV Neut % (Auto) Lymph % (Auto) [place] % (Auto) Eos % (Auto) Baso % (Auto) Neut # (Auto) Lymph # (Auto) [place] # (Auto) Eos # (Auto) Baso # (Auto) Immature Gran % Nucleated RBC % Immature Gran # Nucleated RBCs # Immature Plt Fraction Sodium Potassium Chloride Carbon Dioxide Anion Gap BUN Creatinine GFR Calculation BUN/Creatinine Ratio Glucose Calculated Osmolality Calcium Phosphorus Magnesium Prealbumin Blood Type B NEGATIVE Antibody Screen Negative Crossmatch See Detail DS: Provider Date of admission: 07/27/17 22:19 Primary care physician: . No PCP Attending physician on admission: Kristie Tan MD Consults: 07/28/17 00:07 Consult to Pharmacy [CONS] Routine Reason for Pharmacy Consult: Adjust Meds Renal Funct Dose/Manage Antibiotics Comment: Renal dosing for Levaquin. Discharging clinician: Tahira Mendez NP <Inga Pascual - Last Filed: 08/02/17 14:34> Hospital Course - Time spent with patient Time with patient DS: Greater than 30 minutes (45 min) Discharge Plan - Discharge Data Condition at Discharge: Stable Discharge Diet: other (npo tube feeding two gerda HN with FOS RTH at 50 ml/hr with free water at 50 ml/hr ) Activity: resume usual activities as tolerated Exam - Constitutional General appearance: normal weight, no acute distress - Respiratory Respiratory exam: Present: clear to auscultation bilaterally, decreased breath sounds - Cardiovascular Cardiovascular exam: Present: regular rate and rhythm - GI/Abdominal GI/Abdominal exam: Present: normal bowel sounds, soft. Absent: tenderness
[2017-08-02] MEDS ORDERED: SKIN HEALING OINT (AQUAPHOR) 50 GM TUBE TOP PRN (16:05)
--- NOTE | 2017-08-02 20:36 | Hospitalist Progress Note ---
Assessment and Plan (1) Aspiration pneumonia Status: Acute Assessment and plan: Chest x-ray, blood cultures 2, start meropenem. Current Visit: Yes (2) Anemia Status: Chronic Assessment and plan: Status post 1 units packed red blood cells Current Visit: Yes (3) Severe sepsis Status: Acute Current Visit: Yes (4) UTI (urinary tract infection) Status: Acute Assessment and plan: Growing Proteus in his urine continue meropenem Current Visit: Yes Hospitalist: Subjective Interval history: [facility] patient spiked a fever to 103 and became diaphoretic. Patient is on tube feeds suspect aspiration. Will reculture and hold. Start on 650 of Tylenol for fever Exam - Constitutional Vitals: Period Temp Pulse Resp BP Sys/Martins Pulse Ox Last 24 Hr 97.1 F-99.2 F 78-138 16-36 92-117/60-79 95-99 Exam: Heart Rate-[tachy] Lungs-[CTAB but diminished] GI-[+bs soft, NT] Neuro lethargic psych unable to evaluate General [no acute distress] Results - Labs CBC & BMP: 08/02/17 04:39 08/02/17 04:39 Lab Results: I have reviewed the past 24 hour labs
--- NOTE | 2017-08-02 20:58 | XRay Report ---
Portable chest Exam date: 08/02/2017 8:31 PM Indication: Shortness of breath, cough Comparison: Same day at 0504 hours Findings: Cardiomediastinal contours are stable. No significant change in the pleural and parenchymal opacities obscuring left hemidiaphragm. No acute osseous abnormalities. Visualized upper abdomen demonstrates no acute pathology. Impression: No interval change in the appearance of chest PROCEDURE INTERPRETED AT [facility] DEPARTMENT OF RADIOLOGY Final Report Signed by: Reed Wilson
[2017-08-02] MEDS ORDERED: DIAZEPAM 2 MG TABLET PER TUBE SCH (21:00)
[2017-08-02] MEDS: POLYVINYL ALCOHOL 1.4% OPH SOLN 15 ML BOTTLE BOTH EYES SCH (22:30)
[2017-08-02] MEDS: DOXAZOSIN 4 MG TABLET PER TUBE SCH (22:30)
[2017-08-02] MEDS: MEROPENEM 1,000 MG in SODIUM CHLORIDE 0.9% 50 ML IV SCH (22:55)
[2017-08-03] MEDS: ALBUTEROL/IPRATROPIUM 3 ML NEB RESP TX SCH ×4 (00:28→18:50)
[2017-08-03 00:37] LABS: Apearance,Urine Slightly Hazy (Clear); Bilirubin,Urine Negative (Negative); Blood, Urine Moderate mg/dL (Negative); Glucose,Urine (UA) Negative (Negative); Ketones,Urine Negative (Negative); Nitrite,Urine Negative (Negative); Protein,Urine Negative; RBC,Urine 3 /HPF (0-4); Squamous Epithelial Cell,Urine Occasional /HPF (0-10); Urine Color Yellow (Yellow); Urine Specific Gravity 1.003 (1.001-1.035); Urine Urobilinogen < 2.0 EU/DL (0.2-1.0); WBC,Urine 21 /HPF (0-6)
[2017-08-03] MEDS: MEROPENEM 1,000 MG in SODIUM CHLORIDE 0.9% 50 ML IV SCH ×3 (05:33→21:04)
[2017-08-03 06:15] LABS: Basophils % 0.3 % (0.0-0.8); Eosinophils # 0.2 10*3/uL (0.0-0.87); Eosinophils % 2.8 % (0.00-10.9); Hematocrit 25.8 VOL% (42.0-52.0); Hemoglobin 8.3 GM/DL (14.0-18.0); Immature Granulocytes % 0.9 %; Immature Granulocytes Absolute 0.07 #; Lymphocytes % 25.5 % (21.2-54.2); Mean Corpuscular HGB Conc 32.2 GM/DL (32-36); Mean Corpuscular Hemoglobin 28 PG (27-34); Mean Platelet Volume 9.8 FL (9.6-12.0); Monocytes # 0.6 10*3/uL (0.11-0.8); Monocytes % 7.9 % (1.7-12.7); Neutrophils % 62.6 % (38.7-73.9); Platelet Count 267 T/CUMM (130-400); Red Cell Distribution Width 15.2 % (9.3-17.3)
[2017-08-03 06:41] LABS: Calcium 8.4 MG/DL (8.5-10.1); Magnesium 2.2 MG/DL (1.8-2.4); Osmolality,Calculated 293.8 MOS/KG (273-304); Potassium 4.1 MMOL/L (3.5-5.1)
[2017-08-03] MEDS: TAMSULOSIN 0.4 MG CAPSULE PO SCH (10:34)
[2017-08-03] MEDS: LANSOPRAZOLE ODT 30 MG TABLET PO SCH (10:35)
[2017-08-03] MEDS: METHENAMINE HIPPURATE 1 GM TABLET PER TUBE SCH (10:35)
--- NOTE | 2017-08-03 15:02 | Post Interventional Procedure ---
Pre-op diagnosis: Fever Post-op diagnosis: same Procedure: LP w/ fluoro Flouroscopy: 0.5 min Radiologist: Joshua Pendleton Anesthesia: local Specimens: other (8 cc clear, colorless CSF) Estimated blood loss: none Complications: none Condition: stable Description/Findings: OP 10 cm-water Assessment and Plan - Time spent with patient Time spent with patient: Less than 30 minutes
--- NOTE | 2017-08-03 15:16 | Interventional Radiology Rpt ---
IR lumbar puncture diagnostic Indication: Fever of unknown origin. Lumbar puncture with fluoroscopy Description: Formal timeout was performed. Maximum sterile barrier technique used. The patient was placed prone on the fluoroscopy table. The low back was prepped and draped in a sterile fashion. A midline lumbar puncture was then performed at the L2-3 interspace using a 22-gauge spinal needle. Fluoroscopic guidance was used and a captured image documents the needle position. An opening pressure of 10 cm water was obtained. A cc clear, colorless CSF was withdrawn and sent to laboratory. Needle was removed and a bandage placed the puncture site. Fluoroscopy time: 0.5 minutes. Impression: Lumbar puncture as described. PROCEDURE INTERPRETED AT [facility] DEPARTMENT OF RADIOLOGY Final Report Signed by: Joshua Pendleton M.D.
[2017-08-03 15:33] LABS: Glucose,CSF 42 MG/DL (40-70)
[2017-08-03 15:38] LABS: Appearance,CSF Clear; Lymphocytes,CSF 61 %; Monocytes,CSF 39 %; Red Blood Cell,CSF < 1 C/CUMM; White Blood Cell,CSF 5 C/CUMM
--- NOTE | 2017-08-03 16:20 | Hospitalist Progress Note ---
Assessment and Plan (1) Fever Status: Acute Assessment and plan: repeat ua positive, cx pending, cont meropenem, spinal tap negative for meningitis, will test for flu, cxr negative, repeat blood cx pending Current Visit: Yes (2) Anemia Status: Chronic Assessment and plan: hgb improved to 8.3, guaiac stool, cont prevacid solutab Current Visit: Yes (3) Severe sepsis Status: Acute Current Visit: Yes (4) UTI (urinary tract infection) Status: Acute Assessment and plan: repeat ua pending, cont meropenem, previous cx proteus Current Visit: Yes Hospitalist: Subjective Interval history: Patient more alert after leaving her off the Valium. But still very altered. Spiked temperatures last night but better just morning. Spinal tap clear fluid no evidence of infection. She still has urine that has clumps of white cells. Patient cannot communicate. Restart tube feeds keep head of bed elevated chest x-ray shows no evidence of aspiration Exam - Constitutional Vitals: Period Temp Pulse Resp BP Sys/Martins Pulse Ox Last 24 Hr 97.2 F-101.7 F 78-138 16-34 97-126/58-80 93-99 Exam: Heart Rate-[tachy] Lungs-[CTAB ] GI-[+bs soft, NT] Neuro alert but altered, responses to pain psych depressed mood and flat affect General [no acute distress] Results - Labs CBC & BMP: 08/03/17 05:50 08/03/17 05:50 Lab Results: I have reviewed the past 24 hour labs - Diagnostic Findings Procedure: Chest x-ray: report reviewed by me (nothing acute )
[2017-08-03] MEDS: DOXAZOSIN 4 MG TABLET PER TUBE SCH (21:04)
[2017-08-03] MEDS: DILTIAZEM 60 MG TABLET PO SCH (21:04)
[2017-08-03] MEDS: POLYVINYL ALCOHOL 1.4% OPH SOLN 15 ML BOTTLE BOTH EYES SCH (21:05)
[2017-08-04] MEDS: ALBUTEROL/IPRATROPIUM 3 ML NEB RESP TX SCH ×4 (00:30→19:19)
[2017-08-04] MEDS: MEROPENEM 1,000 MG in SODIUM CHLORIDE 0.9% 50 ML IV SCH ×3 (05:41→22:05)
[2017-08-04 06:11] LABS: Basophils % 0.5 % (0.0-0.8); Eosinophils # 0.3 10*3/uL (0.0-0.87); Eosinophils % 5.1 % (0.00-10.9); Hematocrit 27.2 VOL% (42.0-52.0); Hemoglobin 8.7 GM/DL (14.0-18.0); Immature Granulocytes % 1.1 %; Immature Granulocytes Absolute 0.07 #; Lymphocytes # 1.5 10*3/uL (1.4-4.0); Lymphocytes % 23.7 % (21.2-54.2); Mean Corpuscular Hemoglobin 28 PG (27-34); Mean Corpuscular Volume 87.2 FL (87-102); Mean Platelet Volume 9.8 FL (9.6-12.0); Monocytes # 0.5 10*3/uL (0.11-0.8); Monocytes % 7.1 % (1.7-12.7); Neutrophils # 4.1 10*3/uL (1.4-7.4); Neutrophils % 62.5 % (38.7-73.9); Platelet Count 292 T/CUMM (130-400); Red Blood Count 3.12 MC/CUMM (3.8-5.5); Red Cell Distribution Width 15.4 % (9.3-17.3); White Blood Count 6.5 T/CUMM (4-12)
[2017-08-04 06:35] LABS: Calcium 8.7 MG/DL (8.5-10.1); Magnesium 2.2 MG/DL (1.8-2.4); Osmolality,Calculated 299.4 MOS/KG (273-304); Potassium 4.3 MMOL/L (3.5-5.1)
[2017-08-04] MEDS: DILTIAZEM 60 MG TABLET PO SCH ×2 (09:54→23:20)
[2017-08-04] MEDS: TAMSULOSIN 0.4 MG CAPSULE PO SCH (09:54)
[2017-08-04] MEDS: LANSOPRAZOLE ODT 30 MG TABLET PO SCH (09:54)
[2017-08-04] MEDS: ZINC OXIDE PASTE 113 GM TUBE TOP PRN (09:55)
--- NOTE | 2017-08-04 15:32 | Hospitalist Progress Note ---
Assessment and Plan (1) Anemia Status: Chronic Assessment and plan: Stable Current Visit: Yes (2) Severe sepsis Status: Resolved Current Visit: Yes (3) UTI (urinary tract infection) Status: Acute Assessment and plan: On merrem repeat ua 08/02 with large leukocytes, urine culture with no growth Current Visit: Yes (4) Fever Status: Acute Assessment and plan: Last fever 08/02 LP with no signs of meningitis Current Visit: Yes Hospitalist: Subjective Interval history: No acute events overnight. Complaining of some abdominal pain today. Exam - Constitutional Vitals: Period Temp Pulse Resp BP Sys/Martins Pulse Ox Last 24 Hr 97.4 F-98.5 F 93-135 18-28 98-121/64-78 95-99 General appearance: normal weight - Head Head exam: Present: normocephalic, atraumatic - Eye Eye exam: Present: EOMI Pupils: Present: SY - ENT ENT exam: Present: normal exam - Neck Neck exam: Present: normal inspection - Respiratory Respiratory exam: Present: clear to auscultation bilaterally. Absent: rhonchi, wheezes - Cardiovascular Cardiovascular exam: Present: regular rate and rhythm - GI/Abdominal GI/Abdominal exam: Present: normal bowel sounds, tenderness, soft. Absent: rebound - Extremities Exam Extremities exam: Present: normal inspection - Back Exam Back exam: Present: normal inspection - Neurological Exam Neurological exam: Present: alert - Psychiatric Psychiatric exam: Present: normal affect, normal mood - Skin Skin exam: Present: warm, intact Results - Labs CBC & BMP: 08/04/17 05:15 08/04/17 05:15
--- NOTE | 2017-08-04 18:37 | XRay Report ---
EXAM: XR KUB CLINICAL INDICATION: Abdominal Pain COMPARISON: None Findings: No gastric distention. Large volume stool distending the rectum. Proximal Bowel gas pattern is normal.. Visceral shadows are normal. No abnormal focal soft tissue masses or calcific densities identified in the abdomen or pelvis. Rotary scoliosis with multilevel spondylosis. Percutaneous gastrostomy tube appears in adequate position IMPRESSION: Distended stool-filled rectum, correlate clinically for rectal impaction PROCEDURE INTERPRETED AT [facility] DEPARTMENT OF RADIOLOGY Final Report Signed by: Praful Wilson MD
[2017-08-04] MEDS: POLYVINYL ALCOHOL 1.4% OPH SOLN 15 ML BOTTLE BOTH EYES SCH (23:23)
[2017-08-04] MEDS: DOXAZOSIN 4 MG TABLET PER TUBE SCH (23:23)
[2017-08-05] MEDS: ALBUTEROL/IPRATROPIUM 3 ML NEB RESP TX SCH ×4 (00:56→19:02)
[2017-08-05] MEDS: MEROPENEM 1,000 MG in SODIUM CHLORIDE 0.9% 50 ML IV SCH ×3 (05:04→21:49)
[2017-08-05 06:00] LABS: Basophils # 0.1 10*3/uL (0.0-0.2); Basophils % 0.5 % (0.0-0.8); Eosinophils # 0.5 10*3/uL (0.0-0.87); Hemoglobin 8.7 GM/DL (14.0-18.0); Immature Granulocytes % 0.5 %; Immature Granulocytes Absolute 0.05 #; Lymphocytes # 1.9 10*3/uL (1.4-4.0); Lymphocytes % 19.5 % (21.2-54.2); Mean Corpuscular HGB Conc 32.2 GM/DL (32-36); Mean Corpuscular Hemoglobin 28 PG (27-34); Mean Corpuscular Volume 87.4 FL (87-102); Mean Platelet Volume 9.8 FL (9.6-12.0); Monocytes # 0.7 10*3/uL (0.11-0.8); Neutrophils # 6.5 10*3/uL (1.4-7.4); Neutrophils % 67.5 % (38.7-73.9); Platelet Count 335 T/CUMM (130-400); Red Blood Count 3.09 MC/CUMM (3.8-5.5); Red Cell Distribution Width 15.7 % (9.3-17.3); White Blood Count 9.6 T/CUMM (4-12)
[2017-08-05 06:26] LABS: Calcium 8.8 MG/DL (8.5-10.1); Magnesium 1.9 MG/DL (1.8-2.4); Osmolality,Calculated 294.7 MOS/KG (273-304); Potassium 4.4 MMOL/L (3.5-5.1)
[2017-08-05 06:30] LABS: Phosphorous 2.6 MG/DL (2.5-4.9); Prealbumin 17.3 MG/DL (20-40)
[2017-08-05] MEDS: LANSOPRAZOLE ODT 30 MG TABLET PO SCH (09:23)
[2017-08-05] MEDS: DILTIAZEM 60 MG TABLET PO SCH ×2 (09:23→21:41)
[2017-08-05] MEDS: TAMSULOSIN 0.4 MG CAPSULE PO SCH (09:23)
[2017-08-05] MEDS: POLYETHYLENE GLYCOL POWDER 17 GM PACK PO SCH (09:46)
[2017-08-05 11:21] LABS: VDRL Spinal Fluid Negative (Negative)
[2017-08-05] MEDS: DIAZEPAM 2 MG TABLET PER TUBE PRN (12:30)
--- NOTE | 2017-08-05 13:16 | Pathology Report from [facility] ---
[facility] [place] ACCESSION # : [id number] PATIENT NAME : Jhon Gutierrez ORDERING DR : MO ALANIZ MD CLINICAL HX: Fever POST-OP DX: Same SPECIMEN INFO: Fluid,CSF - 1 ml clear CLASS: I CLASS COMMENTS: No atypical cells or increased cellularity. CLASS LEGEND: CLASS 0 Material inadequate for diagnosis because of (see comment) CLASS I Absence of atypical or abnormal cells CLASS II Atypical Cytology but no evidence of malignancy CLASS III Cytology suggestive of but not conclusive for malignancy CLASS IV Cytology strongly suggestive of malignancy CLASS V Cytology conclusive for malignancy COLLECTED DATE: 08/04/2017 [facility] REPORT DATE: 08/05/2017 ELECTRONICALLY SIGNED BY: Parminder Zaman M.D. 08/05/2017 - 9:16:18 [email or web address]
--- NOTE | 2017-08-05 16:24 | Hospitalist Progress Note ---
Assessment and Plan (1) Anemia Status: Chronic Assessment and plan: Stable Current Visit: Yes (2) Severe sepsis Status: Resolved Current Visit: Yes (3) UTI (urinary tract infection) Status: Acute Assessment and plan: On merrem repeat ua 08/02 with large leukocytes, urine culture with no growth Current Visit: Yes (4) Fever Status: Acute Assessment and plan: Last fever 08/02 LP with no signs of meningitis Current Visit: Yes (5) Constipation Status: Acute Assessment and plan: Possible impaction Miralax Current Visit: Yes Hospitalist: Subjective Interval history: No acute events overnight. Patient reports that his abdominal pain is better. Exam - Constitutional Vitals: Period Temp Pulse Resp BP Sys/Martins Pulse Ox Last 24 Hr 97.6 F-97.9 F 94-132 18-36 93-146/62-74 96-99 General appearance: normal weight - Head Head exam: Present: normocephalic, atraumatic - Eye Eye exam: Present: EOMI Pupils: Present: SY - ENT ENT exam: Present: normal exam - Neck Neck exam: Present: normal inspection - Respiratory Respiratory exam: Present: clear to auscultation bilaterally. Absent: wheezes - Cardiovascular Cardiovascular exam: Present: regular rate and rhythm - GI/Abdominal GI/Abdominal exam: Present: normal bowel sounds, soft. Absent: tenderness, rebound - Extremities Exam Extremities exam: Present: normal inspection - Back Exam Back exam: Present: normal inspection - Neurological Exam Neurological exam: Present: alert - Psychiatric Psychiatric exam: Present: normal affect, normal mood - Skin Skin exam: Present: warm, intact Results - Labs CBC & BMP: 08/05/17 04:40 08/05/17 04:40
[2017-08-05] MEDS: DOXAZOSIN 4 MG TABLET PER TUBE SCH (21:41)
[2017-08-05] MEDS: ZINC OXIDE PASTE 113 GM TUBE TOP PRN (21:47)
[2017-08-05] MEDS: POLYVINYL ALCOHOL 1.4% OPH SOLN 15 ML BOTTLE BOTH EYES SCH (21:49)
[2017-08-06] MEDS: ALBUTEROL/IPRATROPIUM 3 ML NEB RESP TX SCH ×4 (00:27→19:05)
[2017-08-06] MEDS: MEROPENEM 1,000 MG in SODIUM CHLORIDE 0.9% 50 ML IV SCH ×2 (05:12→13:07)
[2017-08-06 08:41] LABS: CMV PCR Source CSF
[2017-08-06] MEDS: TAMSULOSIN 0.4 MG CAPSULE PO SCH (09:29)
[2017-08-06] MEDS: POLYETHYLENE GLYCOL POWDER 17 GM PACK PO SCH (09:29)
[2017-08-06] MEDS: LANSOPRAZOLE ODT 30 MG TABLET PO SCH (09:29)
[2017-08-06] MEDS: DILTIAZEM 60 MG TABLET PO SCH ×2 (09:29→20:58)
--- NOTE | 2017-08-06 10:45 | XRay Report ---
Exam: KUB Exam date: 08/06/2017 1024 AM Indication: Abdominal pain Comparison: Previous day at 0526 hours Findings: There is again moderate stool distending the rectum. No dilated loops of large or small bowel No abnormal calcifications within the abdomen or pelvis. Percutaneous gastrostomy tube again appears in satisfactory position.No acute osseous abnormalities. Visualized lung bases are unremarkable. Impression: Appearance again concerning for rectal impaction PROCEDURE INTERPRETED AT [facility] DEPARTMENT OF RADIOLOGY Final Report Signed by: Praful Wilson MD
--- NOTE | 2017-08-06 15:57 | Hospitalist Progress Note ---
Assessment and Plan (1) Anemia Status: Chronic Assessment and plan: Stable Current Visit: Yes (2) Severe sepsis Status: Resolved Current Visit: Yes (3) UTI (urinary tract infection) Status: Acute Assessment and plan: Will discontinue merrem today repeat ua 08/02 with large leukocytes, urine culture with no growth Current Visit: Yes (4) Fever Status: Acute Assessment and plan: Last fever 08/02 LP with no signs of meningitis Current Visit: Yes (5) Constipation Status: Acute Assessment and plan: With fecal impaction Miralax daily Current Visit: Yes Hospitalist: Subjective Interval history: No acute events overnight. Patient reports that his abdomen feels better. Exam - Constitutional Vitals: Period Temp Pulse Resp BP Sys/Martins Pulse Ox Last 24 Hr 97.2 F-98.1 F 98-120 18-29 101-117/55-76 95-100 General appearance: normal weight - Head Head exam: Present: normocephalic, atraumatic - Eye Eye exam: Present: EOMI Pupils: Present: SY - ENT ENT exam: Present: normal exam - Neck Neck exam: Present: normal inspection - Respiratory Respiratory exam: Present: clear to auscultation bilaterally. Absent: rhonchi, wheezes - Cardiovascular Cardiovascular exam: Present: regular rate and rhythm - GI/Abdominal GI/Abdominal exam: Present: normal bowel sounds, soft. Absent: tenderness, rebound - Extremities Exam Extremities exam: Present: normal inspection - Back Exam Back exam: Present: normal inspection - Neurological Exam Neurological exam: Present: alert - Psychiatric Psychiatric exam: Present: normal affect, normal mood - Skin Skin exam: Present: warm, intact Results - Labs CBC & BMP: 08/05/17 04:40 08/05/17 04:40
[2017-08-06] MEDS: POLYVINYL ALCOHOL 1.4% OPH SOLN 15 ML BOTTLE BOTH EYES SCH (20:58)
[2017-08-06] MEDS: DOXAZOSIN 4 MG TABLET PER TUBE SCH (20:59)
[2017-08-07] MEDS: ALBUTEROL/IPRATROPIUM 3 ML NEB RESP TX SCH ×4 (00:16→18:58)
[2017-08-07] MEDS: ACETAMINOPHEN 325 MG TABLET PEG PRN ×2 (10:36→20:43)
[2017-08-07] MEDS: DIAZEPAM 2 MG TABLET PER TUBE PRN (10:37)
[2017-08-07] MEDS: LANSOPRAZOLE ODT 30 MG TABLET PO SCH (10:37)
[2017-08-07] MEDS: TAMSULOSIN 0.4 MG CAPSULE PO SCH (10:38)
[2017-08-07] MEDS: POLYETHYLENE GLYCOL POWDER 17 GM PACK PO SCH (10:38)
[2017-08-07] MEDS: DILTIAZEM 60 MG TABLET PO SCH ×2 (10:39→20:43)
--- NOTE | 2017-08-07 14:48 | Hospitalist Progress Note ---
Assessment and Plan (1) Anemia Status: Chronic Assessment and plan: Stable Current Visit: Yes (2) Severe sepsis Status: Resolved Current Visit: Yes (3) UTI (urinary tract infection) Status: Acute Assessment and plan: merrem discontinued 08/06, remains afebrile off merrem repeat ua 08/02 with large leukocytes, urine culture with no growth Current Visit: Yes (4) Fever Status: Acute Assessment and plan: Last fever 08/02 LP with no signs of meningitis Current Visit: Yes (5) Constipation Status: Acute Assessment and plan: With fecal impaction Miralax daily Current Visit: Yes Hospitalist: Subjective Interval history: No acute events overnight. Reports that his stomach feels better. Exam - Constitutional Vitals: Period Temp Pulse Resp BP Sys/Martins Pulse Ox Last 24 Hr 97 F-97.9 F 92-115 18-28 102-133/55-79 95-98 General appearance: normal weight - Head Head exam: Present: normocephalic, atraumatic - Eye Eye exam: Present: EOMI Pupils: Present: SY - ENT ENT exam: Present: normal exam - Neck Neck exam: Present: normal inspection - Respiratory Respiratory exam: Present: clear to auscultation bilaterally. Absent: wheezes - Cardiovascular Cardiovascular exam: Present: regular rate and rhythm - GI/Abdominal GI/Abdominal exam: Present: normal bowel sounds, soft. Absent: tenderness, rebound - Extremities Exam Extremities exam: Present: normal inspection - Back Exam Back exam: Present: normal inspection - Neurological Exam Neurological exam: Present: alert - Psychiatric Psychiatric exam: Present: normal affect, normal mood - Skin Skin exam: Present: warm, intact Results - Labs CBC & BMP: 08/05/17 04:40 08/05/17 04:40
[2017-08-07] MEDS: DOXAZOSIN 4 MG TABLET PER TUBE SCH (20:43)
[2017-08-07] MEDS: POLYVINYL ALCOHOL 1.4% OPH SOLN 15 ML BOTTLE BOTH EYES SCH (20:43)
[2017-08-08] MEDS: ALBUTEROL/IPRATROPIUM 3 ML NEB RESP TX SCH ×4 (00:05→19:23)
[2017-08-08] MEDS: POLYETHYLENE GLYCOL POWDER 17 GM PACK PO SCH (11:09)
[2017-08-08] MEDS: LANSOPRAZOLE ODT 30 MG TABLET PO SCH (11:10)
[2017-08-08] MEDS: TAMSULOSIN 0.4 MG CAPSULE PO SCH (11:10)
[2017-08-08] MEDS: DILTIAZEM 60 MG TABLET PO SCH ×2 (11:11→20:00)
--- NOTE | 2017-08-08 15:05 | Hospitalist Progress Note ---
Assessment and Plan (1) Anemia Status: Chronic Assessment and plan: Stable Current Visit: Yes (2) Severe sepsis Status: Resolved Current Visit: Yes (3) UTI (urinary tract infection) Status: Acute Assessment and plan: merrem discontinued 08/06, remains afebrile off merrem repeat ua 08/02 with large leukocytes, urine culture with no growth Current Visit: Yes (4) Fever Status: Acute Assessment and plan: Last fever 08/02 LP with no signs of meningitis Current Visit: Yes (5) Constipation Status: Acute Assessment and plan: With fecal impaction Miralax daily Current Visit: Yes Hospitalist: Subjective Interval history: No acute events overnight. Plan is for discharge back to the residential tomorrow. Exam - Constitutional Vitals: Period Temp Pulse Resp BP Sys/Martins Pulse Ox Last 24 Hr 97.3 F-97.6 F 101-122 18-28 102-123/67-86 93-98 General appearance: normal weight - Head Head exam: Present: normocephalic, atraumatic - Eye Eye exam: Present: EOMI Pupils: Present: SY - ENT ENT exam: Present: normal exam - Neck Neck exam: Present: normal inspection - Respiratory Respiratory exam: Present: clear to auscultation bilaterally. Absent: rhonchi, wheezes - Cardiovascular Cardiovascular exam: Present: regular rate and rhythm - GI/Abdominal GI/Abdominal exam: Present: normal bowel sounds, soft. Absent: tenderness, rebound - Extremities Exam Extremities exam: Present: normal inspection - Back Exam Back exam: Present: normal inspection - Neurological Exam Neurological exam: Present: alert - Psychiatric Psychiatric exam: Present: normal affect, normal mood - Skin Skin exam: Present: warm, intact Results - Labs CBC & BMP: 08/05/17 04:40 08/05/17 04:40
[2017-08-08] MEDS: DIAZEPAM 2 MG TABLET PER TUBE PRN (19:56)
[2017-08-08] MEDS: POLYVINYL ALCOHOL 1.4% OPH SOLN 15 ML BOTTLE BOTH EYES SCH (20:01)
[2017-08-08] MEDS: DOXAZOSIN 4 MG TABLET PER TUBE SCH (20:01)
[2017-08-09] MEDS: ACETAMINOPHEN 325 MG TABLET PEG PRN ×2 (00:23→09:10)
[2017-08-09] MEDS: ALBUTEROL/IPRATROPIUM 3 ML NEB RESP TX SCH ×2 (00:31→07:20)
[2017-08-09 07:01] LABS: Calcium 9.2 MG/DL (8.5-10.1); Magnesium 2.3 MG/DL (1.8-2.4); Osmolality,Calculated 278.8 MOS/KG (273-304); Phosphorous 3.3 MG/DL (2.5-4.9); Potassium 4.5 MMOL/L (3.5-5.1); Prealbumin 24.5 MG/DL (20-40)
[2017-08-09 07:49] VITALS: BP 133/76
[2017-08-09] MEDS: LANSOPRAZOLE ODT 30 MG TABLET PO SCH (09:05)
[2017-08-09] MEDS: DILTIAZEM 60 MG TABLET PO SCH (09:05)
[2017-08-09] MEDS: TAMSULOSIN 0.4 MG CAPSULE PO SCH (09:05)
[2017-08-09] MEDS: POLYETHYLENE GLYCOL POWDER 17 GM PACK PO SCH (09:06)
--- NOTE | 2017-08-09 10:02 | Discharge Summary ---
Hospital Course - Hospital Course Hospital Course: Mr Gutierrez 66 y/o W/PMHx of CVA, closed head injury, COPD, Anemia, with limited verbal communication ability presented [facility] the ED [facility] for further evaluation of fever, cough and CXR consistent with pneumonia. IN ED: his vitals were temp 100.1, HR 115, RR 26, BP 101/75 and O2 sats 95% on RA. Significant labs include WBC 17.8, H/H 9.4/29.6, Creatinine 2.7, Magnesium 2.9, and Lactic acid 1.0. UA indicates a UTI as well. Hospitalist services were consulted, and the patient will be admitted on monitored bed for further evaluation and treatment. Patient with pneumonia and sepsis, acute renal failure which appears acutely related to being dehydrated. IV fluids for dehydration, added free water through his PEG tube. Renal dose Antibiotics with invanz for pneumonia with breathing treatments, blood cultures drawn in ED. Urine noted for UTI and urine culture obtained. Pneumonia improved with antibiotics, breathing treatments. Hypernatremia resolved. Acute renal failure improved with hydration. Blood culture final was negative for growth. Urine culture final resulted Proteus Mirabilis sensitive to Invanz and treated with abx. Patient was set to be discharged 08/02/17, but again became febrile. LP was performed, which did not show an acute infection. He was started on merrem. He was found to be impacted, which was removed manually. He was started on miralax daily. He has now been afebrile off merrem for several days. He has now reached maximal benefit of inpatient stay and will be [facility] back [facility]. Diagnosis - Discharge Diagnosis (1) Anemia Status: Chronic (2) Severe sepsis Status: Resolved (3) UTI (urinary tract infection) Status: Resolved (4) Fever Status: Resolved (5) Constipation Status: Resolved Discharge Plan - Discharge Data Condition at Discharge: Stable Discharge Diet: advance to your usual diet Activity: as per physical therapy Hygiene: no restrictions Weight Bearing at Discharge: weight bear as tolerated Driving: no restrictions Contact your physician if you experience:: fever over 101, Shortness of breath - Discharge Medications New Acetaminophen Tab [Tylenol Tab] 325 mg PEG Q4H PRN tablet PRN Reason: fever, headache/body aches Lansoprazole Odt Tab [Prevacid Solutab] 30 mg PO DAILY tablet Zinc Oxide Paste [Desitin Paste] 1 applic TOP PRN PRN applic PRN Reason: Diaper Rash Albuterol/Ipratropium Neb [Duoneb] 3 ml RESP TX RT Q6H Continue Tamsulosin [Flomax] 0.4 mg PER TUBE DAILY Losartan [Cozaar] 50 mg PER TUBE DAILY Doxazosin [Cardura] 4 mg PER TUBE BEDTIME Methenamine Hippurate [Hiprex] 1,000 gm PER TUBE BID Ondansetron Tab [Zofran Tab] 4 mg PER TUBE Q8H PRN PRN Reason: Nausea/Vomiting Dextran 70/Hypromellose/Pf [Tears Naturale Free] 2 drops BOTH EYES BEDTIME Mag Hydrox/Aluminum Hyd/Simeth [Maalox Maximum Strength Susp] 30 ml PER TUBE Q4H PRN MDD 3 doses in 24 hours PRN Reason: Indigestion Changed diazePAM [Valium] 2 mg PER TUBE BID PRN #20 tablet PRN Reason: Agitation Discontinued HYDROcodone/ACETAMIN 5-325 [[place] 5-325] 1 tablet PER TUBE Q6H PRN PRN Reason: Pain Omeprazole 40 mg PER TUBE DAILY - Follow Up or Referral - Forms/Instructions Exam - Constitutional Vitals: Period Temp Pulse Resp BP Sys/Martins Pulse Ox Last 24 Hr 96.7 F-97.8 F 100-160 18-30 99-133/66-80 92-99 General appearance: normal weight - Head Head exam: Present: normocephalic, atraumatic - Eye Eye exam: Present: EOMI Pupils: Present: SY - ENT ENT exam: Present: normal exam - Neck Neck exam: Present: normal inspection - Respiratory Respiratory exam: Present: clear to auscultation bilaterally - Cardiovascular Cardiovascular exam: Present: regular rate and rhythm - GI/Abdominal GI/Abdominal exam: Present: normal bowel sounds, soft. Absent: tenderness, rebound - Extremities Exam Extremities exam: Present: normal inspection - Back Exam Back exam: Present: normal inspection - Neurological Exam Neurological exam: Present: alert - Psychiatric Psychiatric exam: Present: normal affect, normal mood - Skin Skin exam: Present: warm, intact Discharge Results Procedures and tests throughout hospitalization: Pending Orders 08/03/17 04:23 Occult Blood, Stool Stat 08/03/17 11:16 Cytology Request Stat 08/03/17 12:45 Cryptococcal Antigen Stat Vivian-Grier Virus PCR Stat Fungal Culture w/ Prep Stat HSV PCR Other Sources Stat Cassidy Ink Stat VDRL Spinal Fluid Stat Viral Culture, Non-Respiratory Stat Labs on day of discharge: Labs from last 24 hours 08/09/17 05:42 Sodium 137 Potassium 4.5 Chloride 102 Carbon Dioxide 27 Anion Gap 12.5 BUN 27 H Creatinine 1.00 GFR Calculation 77 BUN/Creatinine Ratio 27.00 H Glucose 123 H Calculated Osmolality 278.8 Calcium 9.2 Phosphorus 3.3 Magnesium 2.3 Prealbumin 24.5 DS: Provider Date of admission: 07/27/17 22:19 Primary care physician: . No PCP Attending physician on admission: Kristie Tan MD Consults: 07/28/17 00:07 Consult to Pharmacy [CONS] Routine Reason for Pharmacy Consult: Adjust Meds Renal Funct Dose/Manage Antibiotics Comment: Renal dosing for Levaquin. Discharging clinician: Jacques Eugene MD
[2017-08-11 14:36] LABS: Epstein-Barr Virus Result Negative (Negative); Epstein-Barr Virus Source CSF
== END 2017-08-09 11:37 | DRG 871 ==
LOC: EDBD → EDUNIT# → N.ED 19:29 → SUATTDRO 22:19 → N.EDINP 22:19 → N.2E 23:51
PROVIDERS: ADMIT Family Medicine; ATTEND Internal Medicine

== ENCOUNTER 2017-09-06 16:00 | Inpatient (IN) ==
[2017-09-06] MEDS ORDERED: SODIUM CHLORIDE 0.9% 2,000 ML IV STA (16:09)
[2017-09-06] MEDS ORDERED: VANCOMYCIN INJ 1,000 MG in SODIUM CHLORIDE 0.9% 250 ML IV STA (16:19)
[2017-09-06] MEDS ORDERED: ETOMIDATE 20 MG/10 ML VIAL IV ONE ×2 (16:19→18:31)
[2017-09-06] MEDS ORDERED: PIPERACILLIN/TAZOBACTAM 3,375 MG in SODIUM CHLORIDE 0.9% 100 ML IV SCH (16:30)
[2017-09-06] MEDS ORDERED: MIDAZOLAM 2 MG/2 ML VIAL IV STA ×2 (16:56→17:32)
[2017-09-06] MEDS ORDERED: MIDAZOLAM 2 MG/2 ML VIAL ONE ×2 (17:01→17:26)
[2017-09-06 17:08] LABS: ABG Base Excess -1.2 MMOL/L (-2.5-2.5); ABG Oxygen Saturation 99.4 % (95-100); ABG PCO2 30.8 MM HG (35-48); ABG PH 7.471 (7.35-7.45); ABG PO2 403.4 MM HG (80-95); ABG TCO2 22.9 MMOL/L (23-27)
[2017-09-06] MEDS ORDERED: NOREPINEPHRINE 4 MG/4 ML VIAL IV ONE (17:19)
[2017-09-06] MEDS: NOREPINEPHRINE 16 MG in SODIUM CHLORIDE 0.9% 234 ML IV SCH (17:31)
[2017-09-06 17:32] LABS: Basophils # 0.1 10*3/uL (0.0-0.2); Basophils % 0.2 % (0.0-0.8); Hematocrit 28.4 VOL% (42.0-52.0); Hemoglobin 9.2 GM/DL (14.0-18.0); Immature Granulocytes % 1.2 %; Immature Granulocytes Absolute 0.33 #; Lymphocytes # 1.9 10*3/uL (1.4-4.0); Lymphocytes % 6.7 % (21.2-54.2); Mean Corpuscular HGB Conc 32.4 GM/DL (32-36); Mean Corpuscular Hemoglobin 29 PG (27-34); Mean Corpuscular Volume 88.5 FL (87-102); Mean Platelet Volume 10.6 FL (9.6-12.0); Neutrophils % 84.9 % (38.7-73.9); Platelet Count 385 T/CUMM (130-400); Red Blood Count 3.21 MC/CUMM (3.8-5.5); Red Cell Distribution Width 17.5 % (9.3-17.3); White Blood Count 28.2 T/CUMM (4-12)
[2017-09-06 17:44] LABS: INR 1.1; PT Patient Result 11.1 SECS; Partial Thromboplastin Time 27.5 SECS (0-40)
[2017-09-06 17:47] LABS: Albumin 2.2 G/DL (3.4-5.0); Bilirubin,Total 0.5 MG/DL (0.2-1.0); Calcium 8.8 MG/DL (8.5-10.1); Osmolality,Calculated 327.4 MOS/KG (273-304); Potassium 5.2 MMOL/L (3.5-5.1); Total Protein 7.1 G/DL (6.4-8.3)
[2017-09-06 17:50] LABS: Lactic Acid 2.2 MMOL/L (0.4-2.0)
[2017-09-06] MEDS: MIDAZOLAM 100 MG in SODIUM CHLORIDE 0.9% 80 ML IV SCH (17:55)
[2017-09-06 18:03] LABS: Apearance,Urine CLOUDY (Clear); Bacteria,Urine Many /HPF (Few); Bilirubin,Urine Negative (Negative); Blood, Urine Large mg/dL (Negative); Glucose,Urine (UA) Negative (Negative); Ketones,Urine Negative (Negative); Nitrite,Urine Negative (Negative); Protein,Urine 100 MG/DL; RBC,Urine 250 /HPF (0-4); Urine Color Yellow (Yellow); Urine Specific Gravity 1.012 (1.001-1.035); Urine Urobilinogen < 2.0 EU/DL (0.2-1.0); WBC,Urine 1395 /HPF (0-6)
[2017-09-06 18:14] LABS: Band Neutrophils 3 % (0-10); Lymphocytes 8 % (20-55); Platelet Estimate Normal; Segmented Neutrophils 84 % (50-85); Total Cells Counted 100
[2017-09-06] MEDS ORDERED: SODIUM CHLORIDE 0.9% 1,650 ML IV ONE (18:16)
[2017-09-06] MEDS ORDERED: VANCOMYCIN 1,000 MG VIAL ONE (18:16)
[2017-09-06] MEDS ORDERED: SODIUM CHLORIDE 0.9% 250 ML IV ONE (18:16)
[2017-09-06] MEDS ORDERED: AZITHROMYCIN INJ 500 MG in SODIUM CHLORIDE 0.9% 250 ML IV SCH (18:30)
[2017-09-06] MEDS ORDERED: VECURONIUM 10 MG VIAL IV ONE (18:31)
[2017-09-06] MEDS ORDERED: LEVOFLOXACIN INJ 500 MG in PREMIX 1 EACH IV SCH (19:00)
[2017-09-06 20:21] LABS: ABG Base Excess -3.8 MMOL/L (-2.5-2.5); ABG HCO3 20.5 MMOL/L (20-26); ABG Oxygen Saturation 99.3 % (95-100); ABG PCO2 34.1 MM HG (35-48); ABG PH 7.397 (7.35-7.45); ABG PO2 403.6 MM HG (80-95); ABG TCO2 21.6 MMOL/L (23-27); Allen Test Positive; Pt O2 Delivery Device Ventilator
[2017-09-06] MEDS: SODIUM CHLORIDE 0.9% 1,000 ML IV SCH (20:21)
[2017-09-06] MEDS: HEPARIN 5,000 UNIT/1 ML VIAL SUBCUT SCH (20:59)
[2017-09-07 03:29] LABS: ABG Base Excess -4.6 MMOL/L (-2.5-2.5); ABG HCO3 19.2 MMOL/L (20-26); ABG Oxygen Saturation 99.3 % (95-100); ABG PCO2 30.8 MM HG (35-48); ABG PH 7.412 (7.35-7.45); ABG PO2 445.6 MM HG (80-95); ABG TCO2 20.1 MMOL/L (23-27); Allen Test Positive; Pt O2 Delivery Device Ventilator
[2017-09-07] MEDS: SODIUM CHLORIDE 0.9% 1,000 ML IV SCH ×4 (03:35→19:24)
[2017-09-07] MEDS: HEPARIN 5,000 UNIT/1 ML VIAL SUBCUT SCH ×3 (05:02→20:15)
[2017-09-07 06:19] LABS: Bilirubin,Total 0.8 MG/DL (0.2-1.0); Calcium 8.4 MG/DL (8.5-10.1); Potassium 5.3 MMOL/L (3.5-5.1); Total Protein 6.6 G/DL (6.4-8.3)
[2017-09-07 06:21] LABS: Basophils # 0.1 10*3/uL (0.0-0.2); Basophils % 0.3 % (0.0-0.8); Eosinophils % 0.1 % (0.00-10.9); Hematocrit 36.1 VOL% (42.0-52.0); Hemoglobin 11.4 GM/DL (14.0-18.0); Immature Granulocytes % 1.3 %; Immature Granulocytes Absolute 0.35 #; Lymphocytes # 1.9 10*3/uL (1.4-4.0); Mean Corpuscular HGB Conc 31.6 GM/DL (32-36); Mean Corpuscular Hemoglobin 28 PG (27-34); Mean Corpuscular Volume 89.4 FL (87-102); Mean Platelet Volume 11.1 FL (9.6-12.0); Monocytes # 1.9 10*3/uL (0.11-0.8); Monocytes % 6.8 % (1.7-12.7); NRBC # 0.04 10*3/uL; Neutrophils # 23.1 10*3/uL (1.4-7.4); Neutrophils % 84.5 % (38.7-73.9); Platelet Count 397 T/CUMM (130-400); Red Blood Count 4.04 MC/CUMM (3.8-5.5); Red Cell Distribution Width 17.8 % (9.3-17.3); White Blood Count 27.4 T/CUMM (4-12)
[2017-09-07 06:44] LABS: Giant Platelets Few; Hypochromasia 1+; Lymphocytes 11 % (20-55); Platelet Estimate Adequate; Segmented Neutrophils 83 % (50-85); Total Cells Counted 100
[2017-09-07] MEDS: NOREPINEPHRINE 16 MG in SODIUM CHLORIDE 0.9% 234 ML IV SCH ×5 (07:01→22:34)
[2017-09-07] MEDS: PANTOPRAZOLE 40 MG VIAL IV SCH (08:45)
[2017-09-07] MEDS: MIDAZOLAM 100 MG in SODIUM CHLORIDE 0.9% 80 ML IV SCH ×2 (13:01→19:20)
[2017-09-07] MEDS: ZINC OXIDE PASTE 113 GM TUBE TOP SCH ×2 (19:16→22:34)
[2017-09-07] MEDS ORDERED: LEVOFLOXACIN INJ 250 MG in PREMIX 1 EACH IV SCH (19:30)
[2017-09-08] MEDS: SODIUM CHLORIDE 0.9% 1,000 ML IV SCH (02:42)
[2017-09-08] MEDS: HEPARIN 5,000 UNIT/1 ML VIAL SUBCUT SCH ×3 (02:46→20:03)
[2017-09-08 03:53] LABS: ABG Base Excess -5.9 MMOL/L (-2.5-2.5); ABG HCO3 19.6 MMOL/L (20-26); ABG Oxygen Saturation 99.9 % (95-100); ABG PH 7.371 (7.35-7.45); ABG TCO2 16.8 MMOL/L (23-27)
[2017-09-08 06:21] LABS: INR 1.1; PT Patient Result 11.5 SECS; Partial Thromboplastin Time 33.4 SECS (0-40)
[2017-09-08] MEDS: MIDAZOLAM 100 MG in SODIUM CHLORIDE 0.9% 80 ML IV SCH (06:29)
[2017-09-08 06:52] LABS: Albumin 1.6 G/DL (3.4-5.0); Bilirubin,Total 1.8 MG/DL (0.2-1.0); Calcium 8.7 MG/DL (8.5-10.1); Osmolality,Calculated 324.9 MOS/KG (273-304); Potassium 5.3 MMOL/L (3.5-5.1); Total Protein 6.2 G/DL (6.4-8.3)
[2017-09-08 07:34] LABS: Basophils # 0.1 10*3/uL (0.0-0.2); Basophils % 0.4 % (0.0-0.8); Eosinophils # 0.1 10*3/uL (0.0-0.87); Eosinophils % 0.3 % (0.00-10.9); Hematocrit 31.7 VOL% (42.0-52.0); Hemoglobin 9.6 GM/DL (14.0-18.0); Immature Granulocytes % 0.7 %; Immature Granulocytes Absolute 0.14 #; Lymphocytes # 2.8 10*3/uL (1.4-4.0); Lymphocytes % 13.3 % (21.2-54.2); Mean Corpuscular HGB Conc 30.3 GM/DL (32-36); Mean Corpuscular Hemoglobin 28 PG (27-34); Mean Corpuscular Volume 92.2 FL (87-102); Mean Platelet Volume 10.1 FL (9.6-12.0); Monocytes # 1.4 10*3/uL (0.11-0.8); Monocytes % 6.9 % (1.7-12.7); Neutrophils # 16.4 10*3/uL (1.4-7.4); Neutrophils % 78.4 % (38.7-73.9); Platelet Count 407 T/CUMM (130-400); Red Blood Count 3.44 MC/CUMM (3.8-5.5); Red Cell Distribution Width 17.9 % (9.3-17.3); White Blood Count 20.9 T/CUMM (4-12)
[2017-09-08 07:59] LABS: Eosinophils 2 % (0-10); Hypochromasia 1+; Lymphocytes 6 % (20-55); Platelet Estimate Adequate; Segmented Neutrophils 88 % (50-85); Total Cells Counted 100
[2017-09-08] MEDS: DEXTROSE 5% 1,000 ML IV SCH ×2 (07:59→18:00)
[2017-09-08 08:00] LABS: Giant Platelets Few
[2017-09-08] MEDS: PANTOPRAZOLE 40 MG VIAL IV SCH (08:21)
[2017-09-08] MEDS: ZINC OXIDE PASTE 113 GM TUBE TOP SCH ×2 (08:22→20:03)
[2017-09-08] MEDS: LEVOFLOXACIN INJ 750 MG in PREMIX 1 EACH IV SCH (10:25)
[2017-09-08] MEDS: MUPIROCIN 2% OINT 22 GM TUBE TOP SCH ×2 (10:26→20:03)
[2017-09-08] MEDS: NOREPINEPHRINE 8 MG in SODIUM CHLORIDE 0.9% 242 ML IV SCH ×2 (12:00→20:04)
[2017-09-08] MEDS: VANCOMYCIN INJ 750 MG in SODIUM CHLORIDE 0.9% 150 ML IV SCH (17:11)
[2017-09-09] MEDS: DEXTROSE 5% 1,000 ML IV SCH ×4 (02:45→21:34)
[2017-09-09] MEDS: SALIVA SUBSTITUTE SPRAY 60 ML CAN SWISH/SPIT PRN (02:45)
[2017-09-09] MEDS: HEPARIN 5,000 UNIT/1 ML VIAL SUBCUT SCH ×3 (03:09→19:45)
[2017-09-09] MEDS: VANCOMYCIN INJ 750 MG in SODIUM CHLORIDE 0.9% 150 ML IV SCH ×2 (03:10→16:48)
[2017-09-09 03:28] LABS: ABG Base Excess -6.6 MMOL/L (-2.5-2.5); ABG PH 7.379 (7.35-7.45); ABG TCO2 16.7 MMOL/L (23-27); Allen Test Positive; Pt O2 Delivery Device Ventilator
[2017-09-09] MEDS: MIDAZOLAM 100 MG in SODIUM CHLORIDE 0.9% 80 ML IV SCH (04:30)
[2017-09-09 06:58] LABS: Magnesium 1.8 MG/DL (1.8-2.4); Phosphorous 2.9 MG/DL (2.5-4.9); Prealbumin 14.8 MG/DL (20-40)
[2017-09-09 07:29] LABS: Magnesium 1.9 MG/DL (1.8-2.4); Osmolality,Calculated 301.1 MOS/KG (273-304); Potassium 4.8 MMOL/L (3.5-5.1)
[2017-09-09 07:33] LABS: Basophils # 0.1 10*3/uL (0.0-0.2); Basophils % 0.3 % (0.0-0.8); Eosinophils # 0.3 10*3/uL (0.0-0.87); Eosinophils % 1.4 % (0.00-10.9); Immature Granulocytes % 0.6 %; Immature Granulocytes Absolute 0.12 #; Lymphocytes # 2.8 10*3/uL (1.4-4.0); Lymphocytes % 14.1 % (21.2-54.2); Mean Corpuscular HGB Conc 30.4 GM/DL (32-36); Mean Corpuscular Hemoglobin 28 PG (27-34); Mean Corpuscular Volume 91.5 FL (87-102); Mean Platelet Volume 10.5 FL (9.6-12.0); Monocytes # 0.9 10*3/uL (0.11-0.8); Monocytes % 4.6 % (1.7-12.7); Neutrophils # 15.5 10*3/uL (1.4-7.4); Red Blood Count 2.84 MC/CUMM (3.8-5.5); Red Cell Distribution Width 17.4 % (9.3-17.3); White Blood Count 19.6 T/CUMM (4-12)
[2017-09-09 07:47] LABS: Hemoglobin 7.9 GM/DL (14.0-18.0)
[2017-09-09 07:48] LABS: Platelet Count 299 T/CUMM (130-400)
[2017-09-09] MEDS: MUPIROCIN 2% OINT 22 GM TUBE TOP SCH ×2 (09:00→21:32)
[2017-09-09] MEDS: ZINC OXIDE PASTE 113 GM TUBE TOP SCH ×2 (09:00→21:32)
[2017-09-09] MEDS: LEVOFLOXACIN INJ 750 MG in PREMIX 1 EACH IV SCH (10:00)
[2017-09-09] MEDS: PANTOPRAZOLE 40 MG VIAL IV SCH (10:00)
[2017-09-09] MEDS: NOREPINEPHRINE 8 MG in SODIUM CHLORIDE 0.9% 242 ML IV SCH (15:05)
[2017-09-10 03:50] LABS: ABG Base Excess -4.6 MMOL/L (-2.5-2.5); ABG HCO3 18.4 MMOL/L (20-26); ABG Oxygen Saturation 99.4 % (95-100); ABG PCO2 26.4 MM HG (35-48); ABG PH 7.462 (7.35-7.45); ABG PO2 282.3 MM HG (80-95); ABG TCO2 19.2 MMOL/L (23-27); Allen Test Positive; Pt O2 Delivery Device Ventilator
[2017-09-10] MEDS: VANCOMYCIN INJ 750 MG in SODIUM CHLORIDE 0.9% 150 ML IV SCH ×2 (04:01→16:27)
[2017-09-10] MEDS: DEXTROSE 5% 1,000 ML IV SCH (04:01)
[2017-09-10] MEDS: HEPARIN 5,000 UNIT/1 ML VIAL SUBCUT SCH ×3 (04:01→20:24)
[2017-09-10] MEDS: MIDAZOLAM 100 MG in SODIUM CHLORIDE 0.9% 80 ML IV SCH ×3 (04:02→17:17)
[2017-09-10 05:40] LABS: Basophils % 0.2 % (0.0-0.8); Eosinophils # 0.4 10*3/uL (0.0-0.87); Eosinophils % 2.7 % (0.00-10.9); Hematocrit 24.3 VOL% (42.0-52.0); Hemoglobin 7.6 GM/DL (14.0-18.0); Immature Granulocytes % 0.4 %; Immature Granulocytes Absolute 0.05 #; Lymphocytes # 1.9 10*3/uL (1.4-4.0); Lymphocytes % 15.1 % (21.2-54.2); Mean Corpuscular HGB Conc 31.3 GM/DL (32-36); Mean Corpuscular Hemoglobin 28 PG (27-34); Mean Corpuscular Volume 89.7 FL (87-102); Mean Platelet Volume 10.6 FL (9.6-12.0); Monocytes # 0.6 10*3/uL (0.11-0.8); Neutrophils # 9.8 10*3/uL (1.4-7.4); Neutrophils % 76.6 % (38.7-73.9); Platelet Count 263 T/CUMM (130-400); Red Blood Count 2.71 MC/CUMM (3.8-5.5); Red Cell Distribution Width 17.1 % (9.3-17.3); White Blood Count 12.8 T/CUMM (4-12)
[2017-09-10 06:18] LABS: Calcium 7.8 MG/DL (8.5-10.1); Osmolality,Calculated 285.1 MOS/KG (273-304); Potassium 3.8 MMOL/L (3.5-5.1)
[2017-09-10] MEDS: NOREPINEPHRINE 8 MG in SODIUM CHLORIDE 0.9% 242 ML IV SCH (08:16)
[2017-09-10] MEDS: SODIUM CHLORIDE 0.9% 1,000 ML IV SCH (09:16)
[2017-09-10] MEDS: PANTOPRAZOLE 40 MG VIAL IV SCH (09:51)
[2017-09-10] MEDS: MUPIROCIN 2% OINT 22 GM TUBE TOP SCH ×2 (09:51→20:12)
[2017-09-10] MEDS: SALIVA SUBSTITUTE SPRAY 60 ML CAN SWISH/SPIT PRN (09:55)
[2017-09-10] MEDS: ZINC OXIDE PASTE 113 GM TUBE TOP SCH ×2 (09:55→20:11)
[2017-09-10] MEDS: cefTRIAXone 1,000 MG in SYRINGE 1 EACH IV SCH ×2 (11:37→11:47)
[2017-09-10] MEDS: INSULIN REGULAR 100 UNIT/ML SUBCUT SCH ×2 (11:49→18:16)
[2017-09-10] MEDS: MEROPENEM 1,000 MG in SYRINGE 1 EACH IV SCH ×2 (12:35→20:24)
[2017-09-11] MEDS: INSULIN REGULAR 100 UNIT/ML SUBCUT SCH ×5 (01:15→23:10)
[2017-09-11] MEDS: SODIUM CHLORIDE 0.9% 1,000 ML IV SCH ×2 (02:09→19:44)
[2017-09-11 03:27] LABS: Allen Test Positive; Pt O2 Delivery Device Ventilator
[2017-09-11 03:32] LABS: ABG Base Excess -3.4 MMOL/L (-2.5-2.5); ABG HCO3 21.6 MMOL/L (20-26); ABG Oxygen Saturation 99.8 % (95-100); ABG PCO2 34.5 MM HG (35-48); ABG PH 7.394 (7.35-7.45); ABG TCO2 19.8 MMOL/L (23-27)
[2017-09-11] MEDS: HEPARIN 5,000 UNIT/1 ML VIAL SUBCUT SCH ×3 (04:02→19:54)
[2017-09-11] MEDS: VANCOMYCIN INJ 750 MG in SODIUM CHLORIDE 0.9% 150 ML IV SCH ×2 (04:02→16:23)
[2017-09-11] MEDS: MEROPENEM 1,000 MG in SYRINGE 1 EACH IV SCH ×3 (04:03→19:54)
[2017-09-11 04:49] LABS: Basophils % 0.2 % (0.0-0.8); Eosinophils # 0.3 10*3/uL (0.0-0.87); Eosinophils % 3.1 % (0.00-10.9); Hematocrit 26.2 VOL% (42.0-52.0); Immature Granulocytes % 0.7 %; Immature Granulocytes Absolute 0.06 #; Lymphocytes # 1.9 10*3/uL (1.4-4.0); Lymphocytes % 20.3 % (21.2-54.2); Mean Corpuscular HGB Conc 30.5 GM/DL (32-36); Mean Corpuscular Hemoglobin 28 PG (27-34); Mean Corpuscular Volume 90.3 FL (87-102); Mean Platelet Volume 10.5 FL (9.6-12.0); Monocytes # 0.6 10*3/uL (0.11-0.8); Monocytes % 6.1 % (1.7-12.7); Neutrophils # 6.4 10*3/uL (1.4-7.4); Neutrophils % 69.6 % (38.7-73.9); Platelet Count 242 T/CUMM (130-400); Red Cell Distribution Width 16.7 % (9.3-17.3); White Blood Count 9.2 T/CUMM (4-12)
[2017-09-11 05:31] LABS: Calcium 7.8 MG/DL (8.5-10.1); Osmolality,Calculated 290.7 MOS/KG (273-304)
[2017-09-11] MEDS: ACETAMINOPHEN 325 MG/10.15 ML UDCUP PO PRN ×2 (07:46→23:04)
[2017-09-11] MEDS: NOREPINEPHRINE 8 MG in SODIUM CHLORIDE 0.9% 242 ML IV SCH (09:13)
[2017-09-11] MEDS: SALIVA SUBSTITUTE SPRAY 60 ML CAN SWISH/SPIT PRN ×2 (09:36→19:59)
[2017-09-11] MEDS: ZINC OXIDE PASTE 113 GM TUBE TOP SCH ×2 (09:36→20:00)
[2017-09-11] MEDS: MUPIROCIN 2% OINT 22 GM TUBE TOP SCH ×2 (09:36→20:00)
[2017-09-11] MEDS: PANTOPRAZOLE 40 MG VIAL IV SCH (09:36)
[2017-09-11] MEDS: MIDAZOLAM 100 MG in SODIUM CHLORIDE 0.9% 80 ML IV SCH ×2 (14:38→17:38)
[2017-09-12] MEDS: HEPARIN 5,000 UNIT/1 ML VIAL SUBCUT SCH ×3 (04:04→20:06)
[2017-09-12 04:08] LABS: ABG Base Excess -0.8 MMOL/L (-2.5-2.5); ABG HCO3 23.8 MMOL/L (20-26); ABG Oxygen Saturation 99.9 % (95-100); ABG PCO2 36.7 MM HG (35-48); ABG PH 7.414 (7.35-7.45); ABG TCO2 22.2 MMOL/L (23-27)
[2017-09-12] MEDS: VANCOMYCIN INJ 750 MG in SODIUM CHLORIDE 0.9% 150 ML IV SCH ×2 (04:09→16:48)
[2017-09-12] MEDS: MEROPENEM 1,000 MG in SYRINGE 1 EACH IV SCH ×3 (04:12→20:40)
[2017-09-12 04:22] LABS: Basophils % 0.3 % (0.0-0.8); Eosinophils # 0.4 10*3/uL (0.0-0.87); Eosinophils % 3.8 % (0.00-10.9); Hematocrit 25.5 VOL% (42.0-52.0); Hemoglobin 7.9 GM/DL (14.0-18.0); Immature Granulocytes % 0.4 %; Immature Granulocytes Absolute 0.05 #; Lymphocytes # 2.2 10*3/uL (1.4-4.0); Mean Corpuscular Hemoglobin 28 PG (27-34); Mean Corpuscular Volume 89.5 FL (87-102); Mean Platelet Volume 10.9 FL (9.6-12.0); Monocytes # 0.7 10*3/uL (0.11-0.8); Monocytes % 6.1 % (1.7-12.7); Neutrophils # 7.7 10*3/uL (1.4-7.4); Neutrophils % 69.4 % (38.7-73.9); Platelet Count 273 T/CUMM (130-400); Red Blood Count 2.85 MC/CUMM (3.8-5.5); Red Cell Distribution Width 16.7 % (9.3-17.3); White Blood Count 11.2 T/CUMM (4-12)
[2017-09-12 04:47] LABS: Calcium 8.2 MG/DL (8.5-10.1); Osmolality,Calculated 292.6 MOS/KG (273-304); Potassium 4.3 MMOL/L (3.5-5.1)
[2017-09-12] MEDS: INSULIN REGULAR 100 UNIT/ML SUBCUT SCH ×3 (05:26→17:42)
[2017-09-12] MEDS: DEXTROSE 5% NACL 0.45% 1,000 ML IV SCH ×2 (08:37→23:17)
[2017-09-12] MEDS: NOREPINEPHRINE 8 MG in SODIUM CHLORIDE 0.9% 242 ML IV SCH (08:56)
[2017-09-12] MEDS: SALIVA SUBSTITUTE SPRAY 60 ML CAN SWISH/SPIT PRN (10:06)
[2017-09-12] MEDS: ZINC OXIDE PASTE 113 GM TUBE TOP SCH ×2 (10:06→21:07)
[2017-09-12] MEDS: MUPIROCIN 2% OINT 22 GM TUBE TOP SCH ×2 (10:06→21:07)
[2017-09-12] MEDS: PANTOPRAZOLE 40 MG VIAL IV SCH (10:22)
[2017-09-12] MEDS: MIDAZOLAM 100 MG in SODIUM CHLORIDE 0.9% 80 ML IV SCH (21:10)
[2017-09-13] MEDS: INSULIN REGULAR 100 UNIT/ML SUBCUT SCH ×5 (00:17→23:39)
[2017-09-13 03:22] LABS: Allen Test Positive; Pt O2 Delivery Device Ventilator
[2017-09-13 03:23] LABS: ABG Base Excess 2.3 MMOL/L (-2.5-2.5); ABG HCO3 25.4 MMOL/L (20-26); ABG Oxygen Saturation 98.2 % (95-100); ABG PCO2 33.2 MM HG (35-48); ABG PH 7.502 (7.35-7.45); ABG PO2 112.6 MM HG (80-95); ABG TCO2 26.4 MMOL/L (23-27)
[2017-09-13] MEDS: HEPARIN 5,000 UNIT/1 ML VIAL SUBCUT SCH (03:56)
[2017-09-13] MEDS: VANCOMYCIN INJ 750 MG in SODIUM CHLORIDE 0.9% 150 ML IV SCH ×2 (03:57→16:08)
[2017-09-13 04:02] LABS: Basophils % 0.3 % (0.0-0.8); Eosinophils # 0.4 10*3/uL (0.0-0.87); Hematocrit 24.4 VOL% (42.0-52.0); Hemoglobin 7.7 GM/DL (14.0-18.0); Immature Granulocytes % 0.5 %; Immature Granulocytes Absolute 0.05 #; Lymphocytes # 1.9 10*3/uL (1.4-4.0); Lymphocytes % 19.3 % (21.2-54.2); Mean Corpuscular HGB Conc 31.6 GM/DL (32-36); Mean Corpuscular Hemoglobin 28 PG (27-34); Mean Corpuscular Volume 88.1 FL (87-102); Mean Platelet Volume 10.9 FL (9.6-12.0); Monocytes # 0.5 10*3/uL (0.11-0.8); Monocytes % 5.2 % (1.7-12.7); Neutrophils # 6.9 10*3/uL (1.4-7.4); Neutrophils % 70.7 % (38.7-73.9); Platelet Count 208 T/CUMM (130-400); Red Blood Count 2.77 MC/CUMM (3.8-5.5); Red Cell Distribution Width 16.5 % (9.3-17.3); White Blood Count 9.8 T/CUMM (4-12)
[2017-09-13 04:37] LABS: Calcium 7.8 MG/DL (8.5-10.1); Osmolality,Calculated 279.4 MOS/KG (273-304); Potassium 4.2 MMOL/L (3.5-5.1)
[2017-09-13 04:57] LABS: Magnesium 1.9 MG/DL (1.8-2.4); Phosphorous 1.7 MG/DL (2.5-4.9); Prealbumin 14.2 MG/DL (20-40)
[2017-09-13] MEDS: MEROPENEM 1,000 MG in SYRINGE 1 EACH IV SCH ×3 (05:20→20:16)
[2017-09-13] MEDS: PANTOPRAZOLE 40 MG VIAL IV SCH (08:48)
[2017-09-13] MEDS: ZINC OXIDE PASTE 113 GM TUBE TOP SCH ×2 (08:49→20:18)
[2017-09-13] MEDS: MUPIROCIN 2% OINT 22 GM TUBE TOP SCH ×2 (08:50→20:18)
[2017-09-13] MEDS: NOREPINEPHRINE 8 MG in SODIUM CHLORIDE 0.9% 242 ML IV SCH (09:44)
[2017-09-13] MEDS ORDERED: SODIUM CHLORIDE 0.9% 1,000 ML IV PRN (10:10)
[2017-09-13] MEDS: DEXTROSE 5% NACL 0.45% 1,000 ML IV SCH (12:24)
[2017-09-13] MEDS: MIDAZOLAM 100 MG in SODIUM CHLORIDE 0.9% 80 ML IV SCH (20:25)
[2017-09-14 09:53] LABS: Albumin 1.6 G/DL (3.4-5.0); Bilirubin,Total 0.4 MG/DL (0.2-1.0); Calcium 8.2 MG/DL (8.5-10.1); Osmolality,Calculated 282.3 MOS/KG (273-304); Potassium 4.4 MMOL/L (3.5-5.1); Total Protein 5.6 G/DL (6.4-8.3)
[2017-09-14 10:02] LABS: Basophils % 0.5 % (0.0-0.8); Eosinophils # 0.4 10*3/uL (0.0-0.87); Eosinophils % 4.8 % (0.00-10.9); Hematocrit 31.4 VOL% (42.0-52.0); Hemoglobin 10.5 GM/DL (14.0-18.0); Immature Granulocytes % 0.6 %; Immature Granulocytes Absolute 0.05 #; Lymphocytes # 1.5 10*3/uL (1.4-4.0); Lymphocytes % 18.8 % (21.2-54.2); Mean Corpuscular HGB Conc 33.4 GM/DL (32-36); Mean Corpuscular Hemoglobin 29 PG (27-34); Mean Corpuscular Volume 85.8 FL (87-102); Mean Platelet Volume 10.2 FL (9.6-12.0); Monocytes # 0.5 10*3/uL (0.11-0.8); Monocytes % 6.7 % (1.7-12.7); Neutrophils # 5.3 10*3/uL (1.4-7.4); Neutrophils % 68.6 % (38.7-73.9); Platelet Count 228 T/CUMM (130-400); Red Blood Count 3.66 MC/CUMM (3.8-5.5); Red Cell Distribution Width 16.2 % (9.3-17.3); White Blood Count 7.8 T/CUMM (4-12)
[2017-09-14 10:09] LABS: ABG Base Excess 3.5 MMOL/L (-2.5-2.5); ABG HCO3 27.6 MMOL/L (20-26); ABG Oxygen Saturation 99.8 % (95-100); ABG PCO2 34.5 MM HG (35-48); ABG PH 7.495 (7.35-7.45)
[2017-09-14 10:14] LABS: PT Patient Result 10.2 SECS
[2017-09-14 10:15] LABS: Partial Thromboplastin Time 28.2 SECS (0-40)
[2017-09-14] MEDS: VANCOMYCIN INJ 750 MG in SODIUM CHLORIDE 0.9% 150 ML IV SCH ×2 (10:40→16:08)
[2017-09-14] MEDS: MEROPENEM 1,000 MG in SYRINGE 1 EACH IV SCH ×3 (10:41→20:38)
[2017-09-14] MEDS: INSULIN REGULAR 100 UNIT/ML SUBCUT SCH ×4 (10:41→23:45)
[2017-09-14] MEDS: DEXTROSE 5% NACL 0.45% 1,000 ML IV SCH ×2 (10:41→17:00)
[2017-09-14] MEDS: NOREPINEPHRINE 8 MG in SODIUM CHLORIDE 0.9% 242 ML IV SCH (10:45)
[2017-09-14] MEDS: MUPIROCIN 2% OINT 22 GM TUBE TOP SCH ×2 (10:45→20:38)
[2017-09-14] MEDS: ZINC OXIDE PASTE 113 GM TUBE TOP SCH ×2 (10:46→20:38)
[2017-09-14] MEDS: PANTOPRAZOLE 40 MG VIAL IV SCH (10:46)
[2017-09-14] MEDS: MIDAZOLAM 100 MG in SODIUM CHLORIDE 0.9% 80 ML IV SCH (20:05)
[2017-09-15 03:18] LABS: Allen Test Positive; Pt O2 Delivery Device Ventilator
[2017-09-15 03:19] LABS: ABG Base Excess 3.7 MMOL/L (-2.5-2.5); ABG HCO3 26.8 MMOL/L (20-26); ABG Oxygen Saturation 98.5 % (95-100); ABG PCO2 35.1 MM HG (35-48); ABG PH 7.501 (7.35-7.45); ABG TCO2 27.9 MMOL/L (23-27)
[2017-09-15 03:51] LABS: Basophils % 0.4 % (0.0-0.8); Eosinophils # 0.3 10*3/uL (0.0-0.87); Eosinophils % 4.2 % (0.00-10.9); Hematocrit 32.5 VOL% (42.0-52.0); Hemoglobin 10.7 GM/DL (14.0-18.0); Immature Granulocytes % 0.5 %; Immature Granulocytes Absolute 0.04 #; Lymphocytes # 1.8 10*3/uL (1.4-4.0); Lymphocytes % 21.9 % (21.2-54.2); Mean Corpuscular HGB Conc 32.9 GM/DL (32-36); Mean Corpuscular Hemoglobin 29 PG (27-34); Mean Corpuscular Volume 86.4 FL (87-102); Mean Platelet Volume 10.6 FL (9.6-12.0); Monocytes # 0.8 10*3/uL (0.11-0.8); Monocytes % 9.6 % (1.7-12.7); Neutrophils # 5.2 10*3/uL (1.4-7.4); Neutrophils % 63.4 % (38.7-73.9); Platelet Count 249 T/CUMM (130-400); Red Blood Count 3.76 MC/CUMM (3.8-5.5); Red Cell Distribution Width 16.6 % (9.3-17.3); White Blood Count 8.2 T/CUMM (4-12)
[2017-09-15 04:19] LABS: Calcium 8.3 MG/DL (8.5-10.1); Osmolality,Calculated 277.5 MOS/KG (273-304); Potassium 4.5 MMOL/L (3.5-5.1)
[2017-09-15] MEDS: VANCOMYCIN INJ 750 MG in SODIUM CHLORIDE 0.9% 150 ML IV SCH (04:49)
[2017-09-15] MEDS: MEROPENEM 1,000 MG in SYRINGE 1 EACH IV SCH ×2 (04:49→13:17)
[2017-09-15] MEDS: INSULIN REGULAR 100 UNIT/ML SUBCUT SCH ×2 (05:54→13:05)
[2017-09-15] MEDS: DEXTROSE 5% NACL 0.45% 1,000 ML IV SCH (07:11)
[2017-09-15] MEDS: NOREPINEPHRINE 8 MG in SODIUM CHLORIDE 0.9% 242 ML IV SCH (08:37)
[2017-09-15] MEDS: MUPIROCIN 2% OINT 22 GM TUBE TOP SCH (09:04)
[2017-09-15] MEDS: ZINC OXIDE PASTE 113 GM TUBE TOP SCH (09:04)
[2017-09-15] MEDS: PANTOPRAZOLE 40 MG VIAL IV SCH (09:04)
[2017-09-15 10:00] LABS: ABG Base Excess 3.9 MMOL/L (-2.5-2.5); ABG HCO3 27.3 MMOL/L (20-26); ABG Oxygen Saturation 96.9 % (95-100); ABG PCO2 36.6 MM HG (35-48); ABG PO2 84.5 MM HG (80-95); ABG TCO2 28.4 MMOL/L (23-27)
[2017-09-15] MEDS ORDERED: VANCOMYCIN INJ 750 MG in SODIUM CHLORIDE 0.9% 150 ML IV SCH (10:00)
[2017-09-15 15:50] VITALS: BP 124/77
== END 2017-09-15 15:45 | DRG 853 ==
LOC: EDBD → EDUNIT# → N.ED 16:00 → N.EDINP 18:15 → SUATTDRO 18:15 → SUPCPDRO 18:15 → N.ICU 18:58
PROVIDERS: ADMIT Internal Medicine; ATTEND Family Medicine

== ENCOUNTER 2017-10-16 09:14 | Inpatient (IN) ==
[2017-10-16] MEDS ORDERED: ASPIRIN 325 MG TABLET PO STA (09:32)
[2017-10-16] MEDS ORDERED: ONDANSETRON 4 MG/2 ML VIAL IV STA (09:32)
[2017-10-16] MEDS ORDERED: NITROGLYCERIN 2% OINT 1 INCH/GM PACK TOP STA (09:32)
[2017-10-16] MEDS ORDERED: MORPHINE 2 MG/1 ML SYRINGE IV STA (09:32)
[2017-10-16 10:01] LABS: Basophils % 0.4 % (0.0-0.8); Eosinophils # 0.1 10*3/uL (0.0-0.87); Eosinophils % 1.3 % (0.00-10.9); Hematocrit 39.5 VOL% (42.0-52.0); Immature Granulocytes % 0.5 %; Immature Granulocytes Absolute 0.05 #; Lymphocytes # 1.9 10*3/uL (1.4-4.0); Lymphocytes % 19.9 % (21.2-54.2); Mean Corpuscular HGB Conc 32.9 GM/DL (32-36); Mean Corpuscular Hemoglobin 30 PG (27-34); Mean Corpuscular Volume 91.6 FL (87-102); Mean Platelet Volume 10.5 FL (9.6-12.0); Monocytes # 0.8 10*3/uL (0.11-0.8); Monocytes % 8.2 % (1.7-12.7); Neutrophils # 6.7 10*3/uL (1.4-7.4); Neutrophils % 69.7 % (38.7-73.9); Platelet Count 284 T/CUMM (130-400); Red Blood Count 4.31 MC/CUMM (3.8-5.5); Red Cell Distribution Width 17.9 % (9.3-17.3); White Blood Count 9.6 T/CUMM (4-12)
[2017-10-16] MEDS ORDERED: MORPHINE 2 MG/1 ML SYRINGE ONE (10:24)
[2017-10-16] MEDS ORDERED: NITROGLYCERIN 2% OINT 1 INCH/GM PACK TOP ONE (10:24)
[2017-10-16] MEDS ORDERED: ASPIRIN 325 MG TABLET ONE (10:24)
[2017-10-16] MEDS ORDERED: ONDANSETRON 4 MG/2 ML VIAL ONE (10:24)
[2017-10-16 10:39] LABS: Alanine Aminotransferase 20 U/L (16-61); Albumin 2.8 G/DL (3.4-5.0); Alkaline Phosphatase 160 U/L (45-117); Aspartate Amino Transferase 13 U/L (0-37); Bilirubin,Total < 0.39 MG/DL (0.2-1.0); Blood Urea Nitrogen 32 MG/DL (7-18); Calcium 9.3 MG/DL (8.5-10.1); Glucose 97 MG/DL (74-106); Osmolality,Calculated 285.4 MOS/KG (273-304); Sodium 140 MMOL/L (136-145); Total Protein 7.3 G/DL (6.4-8.3)
[2017-10-16 11:14] LABS: Apearance,Urine CLOUDY (Clear); Bacteria,Urine Few /HPF (Few); Bilirubin,Urine Negative (Negative); Blood, Urine Negative (Negative); Glucose,Urine (UA) Negative (Negative); Ketones,Urine Negative (Negative); Nitrite,Urine Negative (Negative); Protein,Urine 100 MG/DL; RBC,Urine 30 /HPF (0-4); Urine Color Amber (Yellow); Urine Specific Gravity 1.016 (1.001-1.035); Urine Urobilinogen < 2.0 EU/DL (0.2-1.0); WBC,Urine 2508 /HPF (0-6)
[2017-10-16] MEDS ORDERED: DOCUSATE SODIUM 100 MG CAPSULE PO PRN (12:36)
[2017-10-16] MEDS ORDERED: ACETAMINOPHEN 325 MG TABLET PO PRN (12:36)
[2017-10-16] MEDS ORDERED: MORPHINE 2 MG/1 ML SYRINGE IV PRN (12:36)
[2017-10-16] MEDS ORDERED: guaiFENesin/DM ER 600-30 MG TABLET PO PRN (12:36)
[2017-10-16] MEDS ORDERED: diphenhydrAMINE CAP 25 MG CAPSULE PO PRN (12:36)
[2017-10-16] MEDS ORDERED: PROMETHAZINE 25 MG/1 ML VIAL IM PRN (12:36)
[2017-10-16] MEDS ORDERED: ONDANSETRON 4 MG/2 ML VIAL IV PRN (12:36)
[2017-10-16] MEDS ORDERED: SALIVA SUBSTITUTE COMBO NO 9 SWISH/SPIT PRN (12:48)
[2017-10-16] MEDS ORDERED: SODIUM CHLORIDE 0.9% 1,000 ML IV SCH (13:00)
[2017-10-16] MEDS ORDERED: ALOE VERA TOP SCH (13:00)
[2017-10-16] MEDS ORDERED: SELENIUM SULFIDE TOP SCH (13:00)
[2017-10-16] MEDS: PANTOPRAZOLE 40 MG TABLET PO SCH (16:20)
[2017-10-16] MEDS: TAMSULOSIN 0.4 MG CAPSULE PO SCH (16:20)
[2017-10-16] MEDS: NYSTATIN CREAM 15 GM TUBE TOP SCH ×2 (16:20→22:11)
[2017-10-16] MEDS: ENOXAPARIN 40 MG/0.4 ML SYRINGE SUBCUT SCH (16:21)
[2017-10-16] MEDS: cefTRIAXone 1,000 MG in SYRINGE 1 EACH IV SCH (16:40)
[2017-10-16] MEDS: METOPROLOL TARTRATE 25 MG TABLET PEG SCH (22:11)
[2017-10-17 02:35] LABS: Calcium 8.8 MG/DL (8.5-10.1); Osmolality,Calculated 292.8 MOS/KG (273-304); Potassium 3.9 MMOL/L (3.5-5.1)
[2017-10-17 02:58] LABS: Basophils # 0.1 10*3/uL (0.0-0.2); Basophils % 0.6 % (0.0-0.8); Eosinophils # 0.1 10*3/uL (0.0-0.87); Eosinophils % 1.6 % (0.00-10.9); Hematocrit 34.5 VOL% (42.0-52.0); Hemoglobin 11.1 GM/DL (14.0-18.0); Immature Granulocytes % 0.4 %; Immature Granulocytes Absolute 0.03 #; Lymphocytes # 1.7 10*3/uL (1.4-4.0); Lymphocytes % 21.1 % (21.2-54.2); Mean Corpuscular HGB Conc 32.2 GM/DL (32-36); Mean Corpuscular Hemoglobin 30 PG (27-34); Mean Corpuscular Volume 92.7 FL (87-102); Mean Platelet Volume 10.6 FL (9.6-12.0); Monocytes # 0.6 10*3/uL (0.11-0.8); Monocytes % 7.2 % (1.7-12.7); Neutrophils # 5.7 10*3/uL (1.4-7.4); Neutrophils % 69.1 % (38.7-73.9); Platelet Count 250 T/CUMM (130-400); Red Blood Count 3.72 MC/CUMM (3.8-5.5); Red Cell Distribution Width 18.1 % (9.3-17.3); White Blood Count 8.2 T/CUMM (4-12)
[2017-10-17] MEDS: TAMSULOSIN 0.4 MG CAPSULE PO SCH (09:07)
[2017-10-17] MEDS: PANTOPRAZOLE 40 MG TABLET PO SCH (09:07)
[2017-10-17] MEDS: cefTRIAXone 1,000 MG in SYRINGE 1 EACH IV SCH (09:09)
[2017-10-17] MEDS: NYSTATIN CREAM 15 GM TUBE TOP SCH ×2 (10:15→21:13)
[2017-10-17] MEDS: METOPROLOL TARTRATE 25 MG TABLET PEG SCH ×2 (10:15→21:12)
[2017-10-17] MEDS: ENOXAPARIN 40 MG/0.4 ML SYRINGE SUBCUT SCH (17:06)
[2017-10-18 07:45] LABS: Phosphorous 2.5 MG/DL (2.5-4.9); Prealbumin 20.7 MG/DL (20-40)
[2017-10-18] MEDS: TAMSULOSIN 0.4 MG CAPSULE PO SCH (09:17)
[2017-10-18] MEDS: METOPROLOL TARTRATE 25 MG TABLET PEG SCH ×2 (09:17→21:36)
[2017-10-18] MEDS: PANTOPRAZOLE 40 MG TABLET PO SCH (09:17)
[2017-10-18] MEDS: NYSTATIN CREAM 15 GM TUBE TOP SCH ×2 (09:17→21:36)
[2017-10-18] MEDS: cefTRIAXone 1,000 MG in SYRINGE 1 EACH IV SCH (09:17)
[2017-10-18] MEDS: ENOXAPARIN 40 MG/0.4 ML SYRINGE SUBCUT SCH (14:54)
[2017-10-19 05:56] LABS: Basophils # 0.1 10*3/uL (0.0-0.2); Basophils % 0.7 % (0.0-0.8); Eosinophils # 0.1 10*3/uL (0.0-0.87); Eosinophils % 1.6 % (0.00-10.9); Hematocrit 37.4 VOL% (42.0-52.0); Hemoglobin 12.1 GM/DL (14.0-18.0); Immature Granulocytes % 0.3 %; Immature Granulocytes Absolute 0.02 #; Lymphocytes # 1.9 10*3/uL (1.4-4.0); Lymphocytes % 24.8 % (21.2-54.2); Mean Corpuscular HGB Conc 32.4 GM/DL (32-36); Mean Corpuscular Hemoglobin 30 PG (27-34); Mean Corpuscular Volume 92.8 FL (87-102); Mean Platelet Volume 10.2 FL (9.6-12.0); Monocytes # 0.7 10*3/uL (0.11-0.8); Monocytes % 8.6 % (1.7-12.7); Neutrophils # 4.9 10*3/uL (1.4-7.4); Platelet Count 271 T/CUMM (130-400); Red Blood Count 4.03 MC/CUMM (3.8-5.5); White Blood Count 7.7 T/CUMM (4-12)
[2017-10-19 06:21] LABS: Calcium 8.8 MG/DL (8.5-10.1); Osmolality,Calculated 299.1 MOS/KG (273-304)
[2017-10-19] MEDS: MULTIVITAMIN LIQUID (CENTRUM) 60 ML BOTTLE PEG SCH (09:33)
[2017-10-19] MEDS: TAMSULOSIN 0.4 MG CAPSULE PO SCH (09:34)
[2017-10-19] MEDS: cefTRIAXone 1,000 MG in SYRINGE 1 EACH IV SCH (09:34)
[2017-10-19] MEDS: METOPROLOL TARTRATE 25 MG TABLET PEG SCH ×2 (09:34→21:20)
[2017-10-19] MEDS: PANTOPRAZOLE 40 MG TABLET PO SCH (09:34)
[2017-10-19] MEDS ORDERED: DEXTROSE 50% 25 GM/50 ML VIAL IV PRN (09:42)
[2017-10-19] MEDS ORDERED: GLUCAGON 1 MG VIAL IM PRN (09:42)
[2017-10-19] MEDS: NYSTATIN CREAM 15 GM TUBE TOP SCH ×2 (10:58→21:20)
[2017-10-19] MEDS: ENOXAPARIN 40 MG/0.4 ML SYRINGE SUBCUT SCH (16:01)
[2017-10-20 07:27] LABS: Calcium 8.9 MG/DL (8.5-10.1); Osmolality,Calculated 294.6 MOS/KG (273-304); Potassium 4.4 MMOL/L (3.5-5.1)
[2017-10-20] MEDS: NYSTATIN CREAM 15 GM TUBE TOP SCH (09:26)
[2017-10-20] MEDS: METOPROLOL TARTRATE 25 MG TABLET PEG SCH (09:26)
[2017-10-20] MEDS: cefTRIAXone 1,000 MG in SYRINGE 1 EACH IV SCH (09:26)
[2017-10-20] MEDS: MULTIVITAMIN LIQUID (CENTRUM) 60 ML BOTTLE PEG SCH (09:26)
[2017-10-20] MEDS: TAMSULOSIN 0.4 MG CAPSULE PO SCH (09:26)
[2017-10-20] MEDS: PANTOPRAZOLE 40 MG TABLET PO SCH (09:26)
[2017-10-20 11:24] VITALS: BP 136/81
== END 2017-10-20 12:50 | DRG 699 ==
LOC: EDUNIT# → EDBD → N.ED 09:14 → N.EDINP 13:34 → N.5E 14:25
PROVIDERS: ADMIT Internal Medicine; ATTEND Internal Medicine

== ENCOUNTER 2018-02-19 12:28 | Inpatient (IN) ==
[2018-02-19] MEDS ORDERED: SODIUM CHLORIDE 0.9% 1,000 ML IV STA ×2 (13:13→14:30)
[2018-02-19] MEDS ORDERED: cefTRIAXone 1,000 MG in SODIUM CHLORIDE 0.9% 100 ML IV STA (13:13)
[2018-02-19 13:24] LABS: Basophils % 0.1 % (0.0-0.8); Hematocrit 34.7 VOL% (42.0-52.0); Hemoglobin 11.1 GM/DL (14.0-18.0); Immature Granulocytes % 0.9 %; Immature Granulocytes Absolute 0.12 #; Lymphocytes # 1.1 10*3/uL (1.4-4.0); Lymphocytes % 8.1 % (21.2-54.2); Mean Corpuscular Hemoglobin 30 PG (27-34); Mean Corpuscular Volume 92.3 FL (87-102); Mean Platelet Volume 10.2 FL (9.6-12.0); Monocytes % 7.1 % (1.7-12.7); Neutrophils # 11.4 10*3/uL (1.4-7.4); Neutrophils % 83.8 % (38.7-73.9); Platelet Count 406 T/CUMM (130-400); Red Blood Count 3.76 MC/CUMM (3.8-5.5); Red Cell Distribution Width 13.5 % (9.3-17.3); White Blood Count 13.6 T/CUMM (4-12)
[2018-02-19] MEDS ORDERED: cefTRIAXone 1,000 MG VIAL ONE (13:27)
[2018-02-19 13:38] LABS: Alanine Aminotransferase 131 U/L (16-61); Albumin 1.8 G/DL (3.4-5.0); Alkaline Phosphatase 251 U/L (45-117); Aspartate Amino Transferase 63 U/L (0-37); Bilirubin,Total < 0.39 MG/DL (0.2-1.0); Blood Urea Nitrogen 80 MG/DL (7-18); Calcium 8.7 MG/DL (8.5-10.1); Glucose 135 MG/DL (74-106); Osmolality,Calculated 302.5 MOS/KG (273-304); Potassium 3.5 MMOL/L (3.5-5.1); Sodium 139 MMOL/L (136-145); Total Protein 8.2 G/DL (6.4-8.3)
[2018-02-19 14:07] LABS: Apearance,Urine CLOUDY (Clear); Bilirubin,Urine Negative (Negative); Blood, Urine Small mg/dL (Negative); Glucose,Urine (UA) Negative (Negative); Ketones,Urine Negative (Negative); Nitrite,Urine Negative (Negative); Protein,Urine 100 MG/DL; RBC,Urine 25 /HPF (0-4); Urine Color Amber (Yellow); Urine Specific Gravity 1.012 (1.001-1.035); Urine Urobilinogen < 2.0 EU/DL (0.2-1.0); WBC,Urine 1241 /HPF (0-6)
[2018-02-19] MEDS ORDERED: ONDANSETRON 4 MG/2 ML VIAL IV PRN (16:33)
[2018-02-19] MEDS ORDERED: ACETAMINOPHEN 325 MG TABLET PO PRN (16:33)
[2018-02-19] MEDS ORDERED: SALIVA SUBSTITUTE COMBO NO 9 SWISH/SPIT PRN (16:41)
[2018-02-19] MEDS: SODIUM CHLORIDE 0.9% 1,000 ML IV SCH (17:32)
[2018-02-19] MEDS: FAMOTIDINE 20 MG TABLET PEG SCH (20:31)
[2018-02-19] MEDS: DIAZEPAM 2 MG TABLET PEG SCH (20:31)
[2018-02-20 04:34] LABS: Basophils % 0.4 % (0.0-0.8); Eosinophils % 0.1 % (0.00-10.9); Hematocrit 33.9 VOL% (42.0-52.0); Hemoglobin 10.8 GM/DL (14.0-18.0); Immature Granulocytes % 0.6 %; Immature Granulocytes Absolute 0.07 #; Lymphocytes # 1.8 10*3/uL (1.4-4.0); Mean Corpuscular HGB Conc 31.9 GM/DL (32-36); Mean Corpuscular Hemoglobin 30 PG (27-34); Mean Corpuscular Volume 93.9 FL (87-102); Mean Platelet Volume 9.4 FL (9.6-12.0); Monocytes # 0.7 10*3/uL (0.11-0.8); Monocytes % 6.2 % (1.7-12.7); Neutrophils # 8.5 10*3/uL (1.4-7.4); Neutrophils % 76.7 % (38.7-73.9); Platelet Count 402 T/CUMM (130-400); Red Blood Count 3.61 MC/CUMM (3.8-5.5); Red Cell Distribution Width 13.7 % (9.3-17.3); White Blood Count 11.1 T/CUMM (4-12)
[2018-02-20] MEDS ORDERED: BISACODYL 10 MG SUPP RECTAL ONE (05:30)
[2018-02-20] MEDS ORDERED: KETOROLAC 15 MG/1 ML VIAL IV ONE (05:30)
[2018-02-20 07:17] LABS: Calcium 8.6 MG/DL (8.5-10.1); Osmolality,Calculated 306.4 MOS/KG (273-304); Potassium 3.9 MMOL/L (3.5-5.1)
[2018-02-20] MEDS: AZITHROMYCIN INJ 500 MG in SODIUM CHLORIDE 0.9% 250 ML IV SCH (10:01)
[2018-02-20] MEDS: TAMSULOSIN 0.4 MG CAPSULE PO SCH (10:03)
[2018-02-20] MEDS: MULTIVITAMIN LIQUID (CENTRUM) 60 ML BOTTLE PEG SCH (10:03)
[2018-02-20] MEDS: FAMOTIDINE 20 MG TABLET PEG SCH ×2 (10:03→20:14)
[2018-02-20] MEDS: DIAZEPAM 2 MG TABLET PEG SCH ×2 (10:04→20:14)
[2018-02-20] MEDS: METOPROLOL TARTRATE 50 MG TABLET PEG SCH ×2 (10:04→20:15)
[2018-02-20] MEDS: SODIUM CHLORIDE 0.9% 1,000 ML IV SCH ×2 (12:52→12:53)
[2018-02-20] MEDS ORDERED: cefTRIAXone 1,000 MG in SODIUM CHLORIDE 0.9% 100 ML IV SCH (13:30)
[2018-02-20] MEDS: cefTRIAXone 1,000 MG in SYRINGE 1 EACH IV SCH (13:59)
[2018-02-20] MEDS: ALBUTEROL/IPRATROPIUM 3 ML NEB RESP TX SCH (19:25)
[2018-02-21] MEDS ORDERED: KETOROLAC 15 MG/1 ML VIAL IV ONE (00:30)
[2018-02-21] MEDS: ALBUTEROL/IPRATROPIUM 3 ML NEB RESP TX SCH ×4 (00:45→18:57)
[2018-02-21] MEDS: SODIUM CHLORIDE 0.9% 1,000 ML IV SCH ×3 (03:31→16:08)
[2018-02-21 05:22] LABS: Basophils % 0.2 % (0.0-0.8); Eosinophils # 0.1 10*3/uL (0.0-0.87); Eosinophils % 0.8 % (0.00-10.9); Hematocrit 30.8 VOL% (42.0-52.0); Hemoglobin 9.8 GM/DL (14.0-18.0); Immature Granulocytes % 0.8 %; Immature Granulocytes Absolute 0.09 #; Lymphocytes # 1.6 10*3/uL (1.4-4.0); Lymphocytes % 15.3 % (21.2-54.2); Mean Corpuscular HGB Conc 31.8 GM/DL (32-36); Mean Corpuscular Hemoglobin 30 PG (27-34); Mean Corpuscular Volume 94.5 FL (87-102); Mean Platelet Volume 9.8 FL (9.6-12.0); Monocytes # 0.9 10*3/uL (0.11-0.8); Monocytes % 8.4 % (1.7-12.7); Neutrophils # 7.9 10*3/uL (1.4-7.4); Neutrophils % 74.5 % (38.7-73.9); Platelet Count 365 T/CUMM (130-400); Red Blood Count 3.26 MC/CUMM (3.8-5.5); Red Cell Distribution Width 13.9 % (9.3-17.3); White Blood Count 10.7 T/CUMM (4-12)
[2018-02-21 05:44] LABS: Alanine Aminotransferase 68 U/L (16-61); Albumin 1.5 G/DL (3.4-5.0); Alkaline Phosphatase 165 U/L (45-117); Aspartate Amino Transferase 24 U/L (0-37); Bilirubin,Total < 0.39 MG/DL (0.2-1.0); Blood Urea Nitrogen 45 MG/DL (7-18); Calcium 8.4 MG/DL (8.5-10.1); Glucose 115 MG/DL (74-106); Osmolality,Calculated 311.9 MOS/KG (273-304); Potassium 3.9 MMOL/L (3.5-5.1); Sodium 151 MMOL/L (136-145); Total Protein 6.2 G/DL (6.4-8.3)
[2018-02-21] MEDS ORDERED: DEXTROSE 50% 25 GM/50 ML VIAL IV PRN (09:00)
[2018-02-21] MEDS ORDERED: GLUCAGON 1 MG VIAL IM PRN (09:00)
[2018-02-21] MEDS: TAMSULOSIN 0.4 MG CAPSULE PO SCH (09:02)
[2018-02-21] MEDS: DIAZEPAM 2 MG TABLET PEG SCH ×2 (09:02→21:51)
[2018-02-21] MEDS: FAMOTIDINE 20 MG TABLET PEG SCH ×2 (09:02→21:51)
[2018-02-21] MEDS: MULTIVITAMIN LIQUID (CENTRUM) 60 ML BOTTLE PEG SCH (09:03)
[2018-02-21] MEDS: METOPROLOL TARTRATE 50 MG TABLET PEG SCH ×2 (09:03→21:52)
[2018-02-21] MEDS: AZITHROMYCIN INJ 500 MG in SODIUM CHLORIDE 0.9% 250 ML IV SCH (09:09)
[2018-02-21] MEDS ORDERED: BENZONATATE 100 MG CAPSULE PO PRN (13:58)
[2018-02-21] MEDS: cefTRIAXone 1,000 MG in SYRINGE 1 EACH IV SCH (14:20)
[2018-02-21] MEDS: SODIUM CHLORIDE 0.45% 1,000 ML IV SCH (14:38)
[2018-02-21] MEDS: SULFAMETHOX/TRIMETHOPRIM 800-160 MG TABLET PO SCH (21:51)
[2018-02-22] MEDS: ALBUTEROL/IPRATROPIUM 3 ML NEB RESP TX SCH ×3 (00:23→14:39)
[2018-02-22] MEDS: SODIUM CHLORIDE 0.45% 1,000 ML IV SCH ×3 (03:14→16:19)
[2018-02-22] MEDS: DIAZEPAM 2 MG TABLET PEG SCH (09:19)
[2018-02-22] MEDS: FAMOTIDINE 20 MG TABLET PEG SCH (09:19)
[2018-02-22] MEDS: MULTIVITAMIN LIQUID (CENTRUM) 60 ML BOTTLE PEG SCH (09:19)
[2018-02-22] MEDS: SULFAMETHOX/TRIMETHOPRIM 800-160 MG TABLET PO SCH (09:19)
[2018-02-22] MEDS: TAMSULOSIN 0.4 MG CAPSULE PO SCH (09:19)
[2018-02-22] MEDS: METOPROLOL TARTRATE 50 MG TABLET PEG SCH (09:19)
[2018-02-22 09:33] LABS: Calcium 8.1 MG/DL (8.5-10.1); Osmolality,Calculated 292.8 MOS/KG (273-304); Potassium 4.5 MMOL/L (3.5-5.1); Prealbumin 15.6 MG/DL (20-40)
[2018-02-22 16:48] VITALS: BP 114/66
== END 2018-02-22 16:52 | DRG 690 ==
LOC: EDBD → EDUNIT# → N.ED 12:28 → SUATTDRO 15:13 → N.EDINP 15:13 → N.5E 17:42
PROVIDERS: ADMIT Internal Medicine; ATTEND Family Medicine

== ENCOUNTER 2018-03-09 05:06 | Inpatient (IN) ==
[2018-03-09] MEDS ORDERED: AZITHROMYCIN INJ 500 MG in SODIUM CHLORIDE 0.9% 250 ML IV STA (05:15)
[2018-03-09] MEDS ORDERED: SODIUM CHLORIDE 0.9% 1,000 ML IV STA ×3 (05:15→06:39)
[2018-03-09] MEDS ORDERED: ALBUTEROL/IPRATROPIUM 3 ML NEB RESP TX STA (05:15)
[2018-03-09] MEDS ORDERED: ETOMIDATE 20 MG/10 ML VIAL IV ONE (05:15)
[2018-03-09] MEDS ORDERED: ACETAMINOPHEN 650 MG SUPP RECTAL ONE (05:17)
[2018-03-09] MEDS ORDERED: PIPERACILLIN/TAZOBACTAM 2,250 MG in SODIUM CHLORIDE 0.9% 100 ML IV STA (05:19)
[2018-03-09] MEDS ORDERED: ROCURONIUM 100 MG/10 ML VIAL IV ONE (05:24)
[2018-03-09 05:33] LABS: Basophils % 0.2 % (0.0-0.8); Hematocrit 38.5 VOL% (42.0-52.0); Hemoglobin 12.3 GM/DL (14.0-18.0); Immature Granulocytes % 0.2 %; Immature Granulocytes Absolute 0.02 #; Lymphocytes # 0.8 10*3/uL (1.4-4.0); Lymphocytes % 7.6 % (21.2-54.2); Mean Corpuscular HGB Conc 31.9 GM/DL (32-36); Mean Corpuscular Hemoglobin 30 PG (27-34); Mean Platelet Volume 10.6 FL (9.6-12.0); Monocytes # 0.6 10*3/uL (0.11-0.8); Monocytes % 5.4 % (1.7-12.7); Neutrophils # 9.2 10*3/uL (1.4-7.4); Neutrophils % 86.6 % (38.7-73.9); Platelet Count 431 T/CUMM (130-400); Red Blood Count 4.14 MC/CUMM (3.8-5.5); Red Cell Distribution Width 16.6 % (9.3-17.3); White Blood Count 10.6 T/CUMM (4-12)
[2018-03-09 05:39] LABS: INR 1.1
[2018-03-09 05:55] LABS: Alanine Aminotransferase 76 U/L (16-61); Albumin 2.4 G/DL (3.4-5.0); Alkaline Phosphatase 155 U/L (45-117); Aspartate Amino Transferase 49 U/L (0-37); Blood Urea Nitrogen 77 MG/DL (7-18); Calcium 8.9 MG/DL (8.5-10.1); Glucose 124 MG/DL (74-106); Osmolality,Calculated 313.6 MOS/KG (273-304); Potassium 3.9 MMOL/L (3.5-5.1); Sodium 146 MMOL/L (136-145); Total Protein 8.3 G/DL (6.4-8.3); Troponin I Only < 0.015 NG/ML (0.00-0.045)
[2018-03-09 05:55] LABS: Lactic Acid 3.9 MMOL/L (0.4-2.0)
[2018-03-09] MEDS: PROPOFOL 1,000 MG/100 ML BOTTLE IV SCH ×2 (05:56→15:57)
[2018-03-09 05:58] LABS: Band Neutrophils 19 % (0-10); Eosinophils 1 % (0-10); Lymphocytes 5 % (20-55); Segmented Neutrophils 65 % (50-85); Total Cells Counted 100
[2018-03-09 05:59] LABS: Giant Platelets Few; Hypochromasia 1+; Platelet Estimate Adequate
[2018-03-09] MEDS ORDERED: ACETAMINOPHEN 650 MG SUPP RECTAL STA (06:05)
[2018-03-09] MEDS ORDERED: PIPERACILLIN/TAZOBACTAM 3,375 MG VIAL IV ONE (06:14)
[2018-03-09 06:15] LABS: ABG Base Excess -0.9 MMOL/L (-2.5-2.5); ABG Oxygen Saturation 98.9 % (95-100); ABG PCO2 41.1 MM HG (35-48); ABG PH 7.385 (7.35-7.45); ABG PO2 213.7 MM HG (80-95); ABG TCO2 25.3 MMOL/L (23-27)
[2018-03-09] MEDS ORDERED: SODIUM CHLORIDE 0.9% 100 ML IV ONE (06:15)
[2018-03-09] MEDS ORDERED: ROCURONIUM 100 MG/10 ML VIAL IV STA (06:24)
[2018-03-09 06:25] LABS: Amorphous Crystals,Urine Occasional /HPF (Few); Apearance,Urine CLOUDY (Clear); Bacteria,Urine Moderate /HPF (Few); Bilirubin,Urine Negative (Negative); Blood, Urine Moderate mg/dL (Negative); Glucose,Urine (UA) Negative (Negative); Ketones,Urine Negative (Negative); Nitrite,Urine Negative (Negative); Protein,Urine 100 MG/DL; RBC,Urine 43 /HPF (0-4); Urine Color Amber (Yellow); Urine Specific Gravity 1.011 (1.001-1.035); Urine Urobilinogen < 2.0 EU/DL (0.2-1.0); WBC,Urine 524 /HPF (0-6)
[2018-03-09] MEDS ORDERED: PIPERACILLIN/TAZOBACTAM 3,375 MG in SODIUM CHLORIDE 0.9% 100 ML IV STA (06:35)
[2018-03-09] MEDS ORDERED: fentaNYL 100 MCG/2 ML VIAL ONE (07:04)
[2018-03-09] MEDS ORDERED: fentaNYL 100 MCG/2 ML VIAL IV STA (07:29)
[2018-03-09] MEDS ORDERED: ALBUTEROL/IPRATROPIUM 3 ML NEB RESP TX PRN (07:33)
[2018-03-09] MEDS ORDERED: fentaNYL 100 MCG/2 ML VIAL IV PRN (07:33)
[2018-03-09] MEDS ORDERED: LACTATED RINGERS 1,600 ML IV ONE (07:33)
[2018-03-09] MEDS ORDERED: NOREPINEPHRINE 4 MG/4 ML VIAL IV ONE (08:28)
[2018-03-09] MEDS: NOREPINEPHRINE 8 MG in SODIUM CHLORIDE 0.9% 242 ML IV PRN ×4 (08:39→20:47)
[2018-03-09] MEDS: SODIUM CHLORIDE 0.9% 1,000 ML IV SCH ×2 (08:43→15:56)
[2018-03-09] MEDS ORDERED: LEVOFLOXACIN INJ 750 MG in PREMIX 1 EACH IV SCH (09:00)
[2018-03-09] MEDS ORDERED: METOPROLOL TARTRATE 5 MG/5 ML VIAL IV ONE ×2 (09:08→09:10)
[2018-03-09] MEDS ORDERED: LACTATED RINGERS 500 ML IV ONE (09:08)
[2018-03-09 09:49] LABS: ABG HCO3 20.2 MMOL/L (20-26); ABG Oxygen Saturation 91.7 % (95-100); ABG PCO2 28.3 MM HG (35-48); ABG PH 7.422 (7.35-7.45); ABG PO2 62.2 MM HG (80-95); ABG TCO2 16.8 MMOL/L (23-27)
[2018-03-09] MEDS: ALBUTEROL/IPRATROPIUM 3 ML NEB RESP TX SCH ×3 (10:04→19:39)
[2018-03-09] MEDS: PANTOPRAZOLE 40 MG VIAL IV SCH (10:17)
[2018-03-09] MEDS: HYDROCORTISONE 100 MG VIAL IV SCH ×3 (10:17→20:25)
[2018-03-09] MEDS: ENOXAPARIN 30 MG/0.3 ML SYRINGE SUBCUT SCH (10:18)
[2018-03-09] MEDS: DOCUSATE SODIUM 100 MG CAPSULE PEG SCH ×2 (10:18→20:25)
[2018-03-09] MEDS: VANCOMYCIN INJ 750 MG in SODIUM CHLORIDE 0.9% 250 ML IV SCH (12:17)
[2018-03-09 12:43] LABS: ABG Base Excess -4.7 MMOL/L (-2.5-2.5); ABG HCO3 20.5 MMOL/L (20-26); ABG Oxygen Saturation 98.6 % (95-100); ABG PCO2 27.7 MM HG (35-48); ABG PH 7.434 (7.35-7.45); ABG TCO2 16.9 MMOL/L (23-27)
[2018-03-09] MEDS: PHENYLEPHRINE DRIP 40 MG/250 ML PREMIX IV PRN ×5 (13:14→23:51)
[2018-03-09] MEDS ORDERED: DEXTROSE 50% 25 GM/50 ML VIAL IV PRN (13:35)
[2018-03-09] MEDS ORDERED: GLUCAGON 1 MG VIAL IV PRN (13:35)
[2018-03-09] MEDS ORDERED: SODIUM CHLORIDE 0.9% 1,000 ML IV ONE ×2 (13:45→18:00)
[2018-03-09] MEDS ORDERED: DOPamine 800 MG/250 ML PREMIX IV PRN (17:00)
[2018-03-09] MEDS: INSULIN REGULAR 100 UNIT/ML SUBCUT SCH (18:08)
[2018-03-09] MEDS: MINERAL OIL/PETROLATUM OPH OINT 3.5 GM TUBE BOTH EYES SCH (20:25)
[2018-03-09] MEDS: ACETAMINOPHEN 325 MG TABLET PEG PRN ×2 (20:25→23:58)
[2018-03-09] MEDS: SODIUM CHLORIDE 0.45% 1,000 ML IV SCH (20:29)
[2018-03-10] MEDS: INSULIN REGULAR 100 UNIT/ML SUBCUT SCH ×4 (00:07→18:27)
[2018-03-10] MEDS: ALBUTEROL/IPRATROPIUM 3 ML NEB RESP TX SCH ×4 (00:32→19:37)
[2018-03-10] MEDS: NOREPINEPHRINE 8 MG in SODIUM CHLORIDE 0.9% 242 ML IV PRN (00:57)
[2018-03-10] MEDS: PHENYLEPHRINE DRIP 40 MG/250 ML PREMIX IV PRN ×8 (01:51→20:46)
[2018-03-10] MEDS: HYDROCORTISONE 100 MG VIAL IV SCH ×4 (02:31→22:10)
[2018-03-10 04:24] LABS: ABG Base Excess -8.2 MMOL/L (-2.5-2.5); ABG HCO3 16.6 MMOL/L (20-26); ABG Oxygen Saturation 98.7 % (95-100); ABG PCO2 31.7 MM HG (35-48); ABG PH 7.338 (7.35-7.45); ABG PO2 191.1 MM HG (80-95); ABG TCO2 17.6 MMOL/L (23-27); Allen Test Positive; Pt O2 Delivery Device Ventilator
[2018-03-10] MEDS: PROPOFOL 1,000 MG/100 ML BOTTLE IV SCH (04:36)
[2018-03-10] MEDS: SODIUM CHLORIDE 0.45% 1,000 ML IV SCH (04:37)
[2018-03-10 06:33] LABS: Prealbumin 15.1 MG/DL (20-40)
[2018-03-10 06:36] LABS: Albumin 1.5 G/DL (3.4-5.0); Bilirubin,Total 0.5 MG/DL (0.2-1.0); Calcium 7.3 MG/DL (8.5-10.1); Osmolality,Calculated 326.9 MOS/KG (273-304); Potassium 3.8 MMOL/L (3.5-5.1); Total Protein 5.7 G/DL (6.4-8.3)
[2018-03-10 06:43] LABS: Basophils # 0.1 10*3/uL (0.0-0.2); Basophils % 0.4 % (0.0-0.8); Hematocrit 32.8 VOL% (42.0-52.0); Immature Granulocytes % 5.7 %; Immature Granulocytes Absolute 1.23 #; Lymphocytes % 4.7 % (21.2-54.2); Mean Corpuscular HGB Conc 31.1 GM/DL (32-36); Mean Corpuscular Hemoglobin 30 PG (27-34); Mean Corpuscular Volume 96.5 FL (87-102); Mean Platelet Volume 10.5 FL (9.6-12.0); Monocytes % 4.7 % (1.7-12.7); NRBC # 0.04 10*3/uL; Neutrophils # 18.3 10*3/uL (1.4-7.4); Neutrophils % 84.5 % (38.7-73.9)
[2018-03-10 06:50] LABS: Hemoglobin 10.2 GM/DL (14.0-18.0); Platelet Count 204 T/CUMM (130-400); White Blood Count 21.6 T/CUMM (4-12)
[2018-03-10 07:08] LABS: Band Neutrophils 33 % (0-10); Lymphocytes 22 % (20-55); Segmented Neutrophils 31 % (50-85); Total Cells Counted 100
[2018-03-10 07:09] LABS: Macrocytosis 2+; Platelet Estimate Normal
[2018-03-10] MEDS ORDERED: DEXTROSE 5% IV SCH (08:00)
[2018-03-10] MEDS ORDERED: POTASSIUM CHLORIDE IV SCH (08:00)
[2018-03-10] MEDS ORDERED: SODIUM BICARB IV SCH (08:00)
[2018-03-10] MEDS: VANCOMYCIN INJ 750 MG in SODIUM CHLORIDE 0.9% 250 ML IV SCH (08:08)
[2018-03-10] MEDS: PANTOPRAZOLE 40 MG VIAL IV SCH (08:09)
[2018-03-10] MEDS: DOCUSATE SODIUM 100 MG CAPSULE PEG SCH ×2 (08:09→22:10)
[2018-03-10] MEDS: ENOXAPARIN 30 MG/0.3 ML SYRINGE SUBCUT SCH (08:09)
[2018-03-10] MEDS ORDERED: LORazepam 2 MG/1 ML VIAL IV PRN (08:33)
[2018-03-10] MEDS ORDERED: MORPHINE 4 MG/1 ML VIAL IV ONE (08:33)
[2018-03-10] MEDS ORDERED: LORazepam 2 MG/1 ML VIAL IV STA (09:16)
[2018-03-10 10:41] LABS: Alanine Aminotransferase 34 U/L (16-61); Albumin 1.4 G/DL (3.4-5.0); Alkaline Phosphatase 76 U/L (45-117); Aspartate Amino Transferase 32 U/L (0-37); Bilirubin,Total < 0.39 MG/DL (0.2-1.0); Blood Urea Nitrogen 42 MG/DL (7-18); Calcium 7.3 MG/DL (8.5-10.1); Glucose 149 MG/DL (74-106); Osmolality,Calculated 331.5 MOS/KG (273-304); Potassium 2.9 MMOL/L (3.5-5.1); Total Protein 5.1 G/DL (6.4-8.3)
[2018-03-10 10:44] LABS: Sodium 161 MMOL/L (136-145)
[2018-03-10] MEDS: DEXTROSE 5% 1,000 ML IV SCH (13:17)
[2018-03-10] MEDS: POTASSIUM CHLORIDE 20 MEQ/15 ML UDCUP PER TUBE PRN (14:12)
[2018-03-10] MEDS: POTASSIUM CHLORIDE RIDER 100 ML IV SCH (16:22)
[2018-03-10 17:38] LABS: Alanine Aminotransferase 34 U/L (16-61); Albumin 1.3 G/DL (3.4-5.0); Alkaline Phosphatase 82 U/L (45-117); Aspartate Amino Transferase 30 U/L (0-37); Bilirubin,Total < 0.39 MG/DL (0.2-1.0); Blood Urea Nitrogen 37 MG/DL (7-18); Calcium 7.1 MG/DL (8.5-10.1); Glucose 186 MG/DL (74-106); Potassium 3.4 MMOL/L (3.5-5.1); Sodium 157 MMOL/L (136-145)
[2018-03-10] MEDS: SODIUM BICARB INJ 50 MEQ in DEXTROSE 5% 950 ML IV SCH (18:01)
[2018-03-10] MEDS: fentaNYL INJ 1,250 MCG in SODIUM CHLORIDE 0.9% 225 ML IV PRN (19:01)
[2018-03-10] MEDS: ACETAMINOPHEN 325 MG TABLET PEG PRN (22:10)
[2018-03-10] MEDS: MINERAL OIL/PETROLATUM OPH OINT 3.5 GM TUBE BOTH EYES SCH (22:13)
[2018-03-11] MEDS: POTASSIUM CHLORIDE RIDER 100 ML IV SCH ×3 (00:10→15:19)
[2018-03-11] MEDS: ALBUTEROL/IPRATROPIUM 3 ML NEB RESP TX SCH ×4 (00:38→19:51)
[2018-03-11] MEDS: INSULIN REGULAR 100 UNIT/ML SUBCUT SCH ×4 (00:39→18:29)
[2018-03-11] MEDS: PHENYLEPHRINE DRIP 40 MG/250 ML PREMIX IV PRN ×4 (00:52→17:31)
[2018-03-11] MEDS: DEXTROSE 5% 1,000 ML IV SCH (02:15)
[2018-03-11] MEDS: SODIUM BICARB INJ 50 MEQ in DEXTROSE 5% 950 ML IV SCH ×3 (02:16→19:16)
[2018-03-11] MEDS: HYDROCORTISONE 100 MG VIAL IV SCH ×4 (02:19→20:08)
[2018-03-11] MEDS: PROPOFOL 1,000 MG/100 ML BOTTLE IV SCH (04:37)
[2018-03-11 04:51] LABS: Allen Test Positive; Pt O2 Delivery Device Ventilator
[2018-03-11 04:52] LABS: ABG Base Excess -4.6 MMOL/L (-2.5-2.5); ABG HCO3 20.6 MMOL/L (20-26); ABG Oxygen Saturation 99.4 % (95-100); ABG PCO2 35.6 MM HG (35-48); ABG PH 7.362 (7.35-7.45); ABG TCO2 18.7 MMOL/L (23-27)
[2018-03-11 05:23] LABS: Basophils # 0.1 10*3/uL (0.0-0.2); Basophils % 0.3 % (0.0-0.8); Hematocrit 28.2 VOL% (42.0-52.0); Hemoglobin 8.9 GM/DL (14.0-18.0); Lymphocytes % 4.1 % (21.2-54.2); Mean Corpuscular HGB Conc 31.6 GM/DL (32-36); Mean Corpuscular Hemoglobin 30 PG (27-34); Mean Corpuscular Volume 95.3 FL (87-102); Mean Platelet Volume 10.9 FL (9.6-12.0); Monocytes # 0.9 10*3/uL (0.11-0.8); Monocytes % 3.5 % (1.7-12.7); NRBC # 0.06 10*3/uL; Neutrophils # 22.7 10*3/uL (1.4-7.4); Neutrophils % 90.1 % (38.7-73.9); Platelet Count 165 T/CUMM (130-400); Red Blood Count 2.96 MC/CUMM (3.8-5.5); White Blood Count 25.2 T/CUMM (4-12)
[2018-03-11 05:49] LABS: Band Neutrophils 10 % (0-10); Giant Platelets Few; Hypochromasia 1+; Lymphocytes 5 % (20-55); Macrocytosis Slight; Metamyelocytes 1 %; Platelet Estimate Normal; Segmented Neutrophils 81 % (50-85); Total Cells Counted 100
[2018-03-11 06:05] LABS: Alanine Aminotransferase 41 U/L (16-61); Albumin 1.2 G/DL (3.4-5.0); Alkaline Phosphatase 88 U/L (45-117); Aspartate Amino Transferase 25 U/L (0-37); Bilirubin,Total < 0.39 MG/DL (0.2-1.0); Blood Urea Nitrogen 36 MG/DL (7-18); Calcium 6.8 MG/DL (8.5-10.1); Glucose 194 MG/DL (74-106); Osmolality,Calculated 306.3 MOS/KG (273-304); Potassium 3.6 MMOL/L (3.5-5.1); Sodium 148 MMOL/L (136-145); Total Protein 4.9 G/DL (6.4-8.3)
[2018-03-11] MEDS ORDERED: FUROSEMIDE 40 MG/4 ML VIAL IV ONE (07:01)
[2018-03-11] MEDS ORDERED: ENOXAPARIN 40 MG/0.4 ML SYRINGE SUBCUT SCH (09:00)
[2018-03-11] MEDS: PANTOPRAZOLE 40 MG VIAL IV SCH (09:12)
[2018-03-11] MEDS: ENOXAPARIN 30 MG/0.3 ML SYRINGE SUBCUT SCH ×2 (09:23→19:41)
[2018-03-11] MEDS: DOCUSATE SODIUM 100 MG CAPSULE PEG SCH ×2 (09:35→20:08)
[2018-03-11] MEDS: LEVOFLOXACIN INJ 750 MG in PREMIX 1 EACH IV SCH (09:39)
[2018-03-11] MEDS: VANCOMYCIN INJ 750 MG in SODIUM CHLORIDE 0.9% 250 ML IV SCH ×3 (09:52→20:31)
[2018-03-11] MEDS: fentaNYL INJ 1,250 MCG in SODIUM CHLORIDE 0.9% 225 ML IV PRN (18:32)
[2018-03-11] MEDS: MINERAL OIL/PETROLATUM OPH OINT 3.5 GM TUBE BOTH EYES SCH (20:09)
[2018-03-12] MEDS: INSULIN REGULAR 100 UNIT/ML SUBCUT SCH ×6 (00:28→23:42)
[2018-03-12] MEDS: POTASSIUM CHLORIDE RIDER 100 ML IV SCH ×4 (00:28→23:43)
[2018-03-12] MEDS: ALBUTEROL/IPRATROPIUM 3 ML NEB RESP TX SCH ×4 (01:00→20:42)
[2018-03-12] MEDS: HYDROCORTISONE 100 MG VIAL IV SCH ×4 (02:42→18:53)
[2018-03-12] MEDS: SODIUM BICARB INJ 50 MEQ in DEXTROSE 5% 950 ML IV SCH ×2 (04:01→18:26)
[2018-03-12 04:15] LABS: Pt O2 Delivery Device Ventilator
[2018-03-12 04:25] LABS: ABG Base Excess 0.6 MMOL/L (-2.5-2.5); ABG Oxygen Saturation 99.6 % (95-100); ABG PCO2 37.7 MM HG (35-48); ABG PH 7.426 (7.35-7.45); ABG TCO2 22.9 MMOL/L (23-27)
[2018-03-12] MEDS: PHENYLEPHRINE DRIP 40 MG/250 ML PREMIX IV PRN (04:34)
[2018-03-12] MEDS: PROPOFOL 1,000 MG/100 ML BOTTLE IV SCH ×2 (04:55→21:05)
[2018-03-12 05:19] LABS: Basophils % 0.2 % (0.0-0.8); Hematocrit 28.4 VOL% (42.0-52.0); Hemoglobin 9.1 GM/DL (14.0-18.0); Immature Granulocytes % 0.7 %; Lymphocytes # 1.1 10*3/uL (1.4-4.0); Lymphocytes % 4.4 % (21.2-54.2); Mean Corpuscular Hemoglobin 30 PG (27-34); Mean Corpuscular Volume 94.7 FL (87-102); Mean Platelet Volume 10.5 FL (9.6-12.0); Monocytes % 2.9 % (1.7-12.7); Neutrophils # 22.7 10*3/uL (1.4-7.4); Neutrophils % 91.8 % (38.7-73.9); Platelet Count 138 T/CUMM (130-400); Red Cell Distribution Width 16.3 % (9.3-17.3); White Blood Count 24.8 T/CUMM (4-12)
[2018-03-12 05:20] LABS: Basophils # 0.1 10*3/uL (0.0-0.2); Immature Granulocytes Absolute 0.18 #; Monocytes # 0.7 10*3/uL (0.11-0.8); NRBC # 0.04 10*3/uL
[2018-03-12 05:48] LABS: Alanine Aminotransferase 41 U/L (16-61); Albumin 1.2 G/DL (3.4-5.0); Alkaline Phosphatase 98 U/L (45-117); Aspartate Amino Transferase 20 U/L (0-37); Bilirubin,Total < 0.39 MG/DL (0.2-1.0); Blood Urea Nitrogen 40 MG/DL (7-18); Glucose 164 MG/DL (74-106); Osmolality,Calculated 299.8 MOS/KG (273-304); Potassium 3.3 MMOL/L (3.5-5.1); Sodium 144 MMOL/L (136-145); Total Protein 4.7 G/DL (6.4-8.3)
[2018-03-12 06:13] LABS: Band Neutrophils 3 % (0-10); Hypochromasia 1+; Lymphocytes 6 % (20-55); Metamyelocytes 1 %; Nucleated Red Blood Cells 1 (0-5); Segmented Neutrophils 88 % (50-85); Total Cells Counted 100
[2018-03-12 06:14] LABS: Macrocytosis Slight
[2018-03-12 06:15] LABS: Platelet Estimate Adequate
[2018-03-12] MEDS: PANTOPRAZOLE 40 MG VIAL IV SCH (09:09)
[2018-03-12] MEDS: DOCUSATE SODIUM 100 MG CAPSULE PEG SCH ×2 (09:19→20:32)
[2018-03-12] MEDS: LEVOFLOXACIN INJ 750 MG in PREMIX 1 EACH IV SCH (09:19)
[2018-03-12] MEDS: ENOXAPARIN 30 MG/0.3 ML SYRINGE SUBCUT SCH (09:23)
[2018-03-12] MEDS: POTASSIUM CHLORIDE 20 MEQ/15 ML UDCUP PER TUBE PRN (09:26)
[2018-03-12] MEDS: VANCOMYCIN INJ 750 MG in SODIUM CHLORIDE 0.9% 250 ML IV SCH ×2 (11:14→20:32)
[2018-03-12] MEDS: fentaNYL INJ 1,250 MCG in SODIUM CHLORIDE 0.9% 225 ML IV PRN (17:53)
[2018-03-12] MEDS: MINERAL OIL/PETROLATUM OPH OINT 3.5 GM TUBE BOTH EYES SCH (20:32)
[2018-03-13] MEDS: ALBUTEROL/IPRATROPIUM 3 ML NEB RESP TX SCH ×4 (01:31→20:42)
[2018-03-13 04:13] LABS: ABG Base Excess 1.6 MMOL/L (-2.5-2.5); ABG HCO3 25.6 MMOL/L (20-26); ABG Oxygen Saturation 98.6 % (95-100); ABG PCO2 37.9 MM HG (35-48); ABG PH 7.448 (7.35-7.45); ABG PO2 174.6 MM HG (80-95); ABG TCO2 26.8 MMOL/L (23-27)
[2018-03-13] MEDS: HYDROCORTISONE 100 MG VIAL IV SCH ×3 (04:27→18:34)
[2018-03-13] MEDS: PHENYLEPHRINE DRIP 40 MG/250 ML PREMIX IV PRN (04:41)
[2018-03-13 04:44] LABS: Basophils % 0.2 % (0.0-0.8); Hematocrit 27.1 VOL% (42.0-52.0); Hemoglobin 8.7 GM/DL (14.0-18.0); Immature Granulocytes % 0.9 %; Immature Granulocytes Absolute 0.14 #; Lymphocytes % 6.6 % (21.2-54.2); Mean Corpuscular HGB Conc 32.1 GM/DL (32-36); Mean Corpuscular Hemoglobin 30 PG (27-34); Mean Corpuscular Volume 92.8 FL (87-102); Monocytes # 0.5 10*3/uL (0.11-0.8); Monocytes % 3.4 % (1.7-12.7); NRBC # 0.02 10*3/uL; Neutrophils # 13.3 10*3/uL (1.4-7.4); Neutrophils % 88.9 % (38.7-73.9); Platelet Count 136 T/CUMM (130-400); Red Blood Count 2.92 MC/CUMM (3.8-5.5); Red Cell Distribution Width 15.9 % (9.3-17.3); White Blood Count 14.9 T/CUMM (4-12)
[2018-03-13] MEDS: PROPOFOL 1,000 MG/100 ML BOTTLE IV SCH ×2 (04:57→21:38)
[2018-03-13 05:16] LABS: Calcium 7.5 MG/DL (8.5-10.1); Osmolality,Calculated 303.4 MOS/KG (273-304); Potassium 4.4 MMOL/L (3.5-5.1)
[2018-03-13 05:51] LABS: Band Neutrophils 1 % (0-10); Hypochromasia 1+; Lymphocytes 2 % (20-55); Microcytosis Slight; Segmented Neutrophils 95 % (50-85); Total Cells Counted 100
[2018-03-13 05:52] LABS: Platelet Estimate Adequate
[2018-03-13] MEDS: INSULIN REGULAR 100 UNIT/ML SUBCUT SCH ×3 (06:20→18:38)
[2018-03-13] MEDS: POTASSIUM CHLORIDE RIDER 100 ML IV SCH ×2 (06:30→15:45)
[2018-03-13] MEDS: PANTOPRAZOLE 40 MG VIAL IV SCH (09:02)
[2018-03-13] MEDS: ENOXAPARIN 30 MG/0.3 ML SYRINGE SUBCUT SCH (09:06)
[2018-03-13] MEDS: DOCUSATE SODIUM 100 MG CAPSULE PEG SCH ×2 (09:06→20:20)
[2018-03-13] MEDS: LEVOFLOXACIN INJ 750 MG in PREMIX 1 EACH IV SCH (09:08)
[2018-03-13] MEDS: VANCOMYCIN INJ 750 MG in SODIUM CHLORIDE 0.9% 250 ML IV SCH ×2 (10:00→20:31)
[2018-03-13] MEDS ORDERED: MAGNESIUM SULF RIDER 2 GM in PREMIX 1 EACH IV ONE (10:09)
[2018-03-13] MEDS: fentaNYL INJ 1,250 MCG in SODIUM CHLORIDE 0.9% 225 ML IV PRN (13:53)
[2018-03-13] MEDS: MINERAL OIL/PETROLATUM OPH OINT 3.5 GM TUBE BOTH EYES SCH (20:20)
[2018-03-14] MEDS: POTASSIUM CHLORIDE RIDER 100 ML IV SCH ×3 (00:10→15:32)
[2018-03-14] MEDS: INSULIN REGULAR 100 UNIT/ML SUBCUT SCH ×3 (00:10→13:38)
[2018-03-14] MEDS: ALBUTEROL/IPRATROPIUM 3 ML NEB RESP TX SCH ×3 (01:40→12:24)
[2018-03-14 03:47] LABS: ABG Base Excess 1.4 MMOL/L (-2.5-2.5); ABG HCO3 25.7 MMOL/L (20-26); ABG Oxygen Saturation 99.2 % (95-100); ABG PCO2 36.2 MM HG (35-48); ABG TCO2 23.2 MMOL/L (23-27); Allen Test Positive; Pt O2 Delivery Device Ventilator
[2018-03-14] MEDS: HYDROCORTISONE 100 MG VIAL IV SCH ×2 (04:02→13:37)
[2018-03-14 04:30] LABS: Basophils % 0.1 % (0.0-0.8); Hematocrit 26.3 VOL% (42.0-52.0); Hemoglobin 8.4 GM/DL (14.0-18.0); Immature Granulocytes % 1.1 %; Immature Granulocytes Absolute 0.16 #; Lymphocytes # 1.3 10*3/uL (1.4-4.0); Lymphocytes % 9.1 % (21.2-54.2); Mean Corpuscular HGB Conc 31.9 GM/DL (32-36); Mean Corpuscular Hemoglobin 30 PG (27-34); Mean Corpuscular Volume 93.3 FL (87-102); Mean Platelet Volume 11.4 FL (9.6-12.0); Monocytes # 0.9 10*3/uL (0.11-0.8); Monocytes % 5.8 % (1.7-12.7); Neutrophils # 12.3 10*3/uL (1.4-7.4); Neutrophils % 83.9 % (38.7-73.9); Platelet Count 152 T/CUMM (130-400); Red Blood Count 2.82 MC/CUMM (3.8-5.5); Red Cell Distribution Width 15.9 % (9.3-17.3); White Blood Count 14.7 T/CUMM (4-12)
[2018-03-14 04:57] LABS: Calcium 7.7 MG/DL (8.5-10.1); Osmolality,Calculated 303.1 MOS/KG (273-304)
[2018-03-14 05:22] LABS: Band Neutrophils 1 % (0-10); Lymphocytes 11 % (20-55); Segmented Neutrophils 86 % (50-85); Total Cells Counted 100
[2018-03-14 05:24] LABS: Hypochromasia 1+; Microcytosis 1+; Platelet Estimate Normal
[2018-03-14 05:29] LABS: Prealbumin 18.7 MG/DL (20-40)
[2018-03-14] MEDS: PROPOFOL 1,000 MG/100 ML BOTTLE IV SCH ×2 (06:33→08:52)
[2018-03-14] MEDS: VANCOMYCIN INJ 750 MG in SODIUM CHLORIDE 0.9% 250 ML IV SCH (08:51)
[2018-03-14] MEDS: PANTOPRAZOLE 40 MG VIAL IV SCH (08:51)
[2018-03-14] MEDS: LEVOFLOXACIN INJ 750 MG in PREMIX 1 EACH IV SCH (08:51)
[2018-03-14] MEDS: DOCUSATE SODIUM 100 MG CAPSULE PEG SCH (09:05)
[2018-03-14] MEDS: ENOXAPARIN 30 MG/0.3 ML SYRINGE SUBCUT SCH (14:10)
[2018-03-14 17:28] VITALS: BP 117/69
== END 2018-03-14 15:25 | DRG 870 ==
LOC: EDBD → EDUNIT# → N.ED 05:06 → SUATTDRO 06:11 → N.EDINP 06:11 → N.CC 07:44
PROVIDERS: ADMIT Emergency Medicine; ATTEND Internal Medicine

== ENCOUNTER 2018-04-13 15:38 | Inpatient (IN) ==
[2018-04-13] MEDS ORDERED: CLINDAMYCIN INJ 600 MG in PREMIX 1 EACH IV STA (16:47)
[2018-04-13] MEDS ORDERED: methylPREDNISolone SOD SUC 125 MG/2 ML VIAL IV STA (16:47)
[2018-04-13] MEDS ORDERED: SODIUM CHLORIDE 0.9% 500 ML IV STA (16:47)
[2018-04-13] MEDS ORDERED: ONDANSETRON 4 MG/2 ML VIAL IV STA (16:47)
[2018-04-13] MEDS ORDERED: ALBUTEROL 2.5 MG/3 ML NEB RESP TX SCH (17:00)
[2018-04-13 17:11] LABS: ABG Base Excess 1.3 MMOL/L (-2.5-2.5); ABG HCO3 25.6 MMOL/L (20-26); ABG Oxygen Saturation 97.1 % (95-100); ABG PCO2 30.9 MM HG (35-48); ABG PH 7.495 (7.35-7.45); ABG PO2 80.9 MM HG (80-95); ABG TCO2 20.9 MMOL/L (23-27); Allen Test Positive
[2018-04-13 17:59] LABS: Basophils # 0.1 10*3/uL (0.0-0.2); Basophils % 0.6 % (0.0-0.8); Eosinophils # 0.4 10*3/uL (0.0-0.87); Eosinophils % 4.1 % (0.00-10.9); Hematocrit 39.6 VOL% (42.0-52.0); Hemoglobin 12.6 GM/DL (14.0-18.0); Immature Granulocytes % 0.8 %; Immature Granulocytes Absolute 0.09 #; Lymphocytes % 18.5 % (21.2-54.2); Mean Corpuscular HGB Conc 31.8 GM/DL (32-36); Mean Corpuscular Hemoglobin 31 PG (27-34); Mean Corpuscular Volume 95.9 FL (87-102); Mean Platelet Volume 11.6 FL (9.6-12.0); Monocytes # 0.9 10*3/uL (0.11-0.8); Monocytes % 8.3 % (1.7-12.7); Neutrophils # 7.2 10*3/uL (1.4-7.4); Neutrophils % 67.7 % (38.7-73.9); Platelet Count 279 T/CUMM (130-400); Red Blood Count 4.13 MC/CUMM (3.8-5.5); Red Cell Distribution Width 16.7 % (9.3-17.3); White Blood Count 10.7 T/CUMM (4-12)
[2018-04-13 18:05] LABS: PT Patient Result 10.3 SECS
[2018-04-13 18:07] LABS: Apearance,Urine CLOUDY (Clear); Bilirubin,Urine Negative (Negative); Blood, Urine Negative (Negative); Calcium Oxalate Crystals,Urine Few /HPF (Few); Glucose,Urine (UA) Negative (Negative); Ketones,Urine Negative (Negative); Mucus,Urine Moderate /LPF (Occasional); Nitrite,Urine Positive (Negative); Protein,Urine >=500 MG/DL; RBC,Urine 126 /HPF (0-4); Squamous Epithelial Cell,Urine Occasional /HPF (0-10); Triple Phosphate Crystal,Urine Many /HPF (Few); Urine Color Amber (Yellow); Urine Specific Gravity 1.015 (1.001-1.035); Urine Urobilinogen < 2.0 EU/DL (0.2-1.0); WBC,Urine 29 /HPF (0-6)
[2018-04-13 18:12] LABS: Albumin 2.7 G/DL (3.4-5.0); Bilirubin,Total 0.5 MG/DL (0.2-1.0); Osmolality,Calculated 282.8 MOS/KG (273-304); Potassium 3.9 MMOL/L (3.5-5.1); Total Protein 8.4 G/DL (6.4-8.3)
[2018-04-13] MEDS ORDERED: ALBUTEROL/IPRATROPIUM 3 ML NEB RESP TX STA (18:47)
[2018-04-13] MEDS ORDERED: ALBUTEROL 2.5 MG/3 ML NEB RESP TX PRN (20:14)
[2018-04-13] MEDS ORDERED: ONDANSETRON 4 MG/2 ML VIAL IV PRN (20:14)
[2018-04-13] MEDS ORDERED: LEVOFLOXACIN INJ 750 MG in PREMIX 1 EACH IV SCH (20:30)
[2018-04-13] MEDS: SODIUM CHLORIDE 0.9% 1,000 ML IV SCH (21:28)
[2018-04-13] MEDS: LEVOFLOXACIN INJ 750 MG in PREMIX 1 EACH IV SCH (22:28)
[2018-04-13] MEDS: ENOXAPARIN 40 MG/0.4 ML SYRINGE SUBCUT SCH (22:29)
[2018-04-13] MEDS: DOCUSATE SODIUM 100 MG/10 ML UDCUP PEG SCH (23:19)
[2018-04-14] MEDS: ALBUTEROL/IPRATROPIUM 3 ML NEB RESP TX SCH ×4 (01:15→19:36)
[2018-04-14] MEDS: CLINDAMYCIN INJ 600 MG in PREMIX 1 EACH IV SCH ×3 (03:26→21:59)
[2018-04-14 05:13] LABS: Basophils % 0.1 % (0.0-0.8); Hematocrit 35.9 VOL% (42.0-52.0); Hemoglobin 11.8 GM/DL (14.0-18.0); Immature Granulocytes Absolute 0.07 #; Lymphocytes # 0.6 10*3/uL (1.4-4.0); Lymphocytes % 8.9 % (21.2-54.2); Mean Corpuscular HGB Conc 32.9 GM/DL (32-36); Mean Corpuscular Hemoglobin 31 PG (27-34); Mean Corpuscular Volume 93.7 FL (87-102); Mean Platelet Volume 11.2 FL (9.6-12.0); Monocytes # 0.1 10*3/uL (0.11-0.8); Monocytes % 0.7 % (1.7-12.7); Neutrophils # 6.3 10*3/uL (1.4-7.4); Neutrophils % 89.3 % (38.7-73.9); Platelet Count 277 T/CUMM (130-400); Red Blood Count 3.83 MC/CUMM (3.8-5.5); Red Cell Distribution Width 16.6 % (9.3-17.3); White Blood Count 7.1 T/CUMM (4-12)
[2018-04-14 05:41] LABS: Alanine Aminotransferase 24 U/L (16-61); Albumin 2.5 G/DL (3.4-5.0); Alkaline Phosphatase 164 U/L (45-117); Aspartate Amino Transferase 19 U/L (0-37); Bilirubin,Total < 0.39 MG/DL (0.2-1.0); Blood Urea Nitrogen 44 MG/DL (7-18); Calcium 9.2 MG/DL (8.5-10.1); Glucose 123 MG/DL (74-106); Osmolality,Calculated 290.4 MOS/KG (273-304); Potassium 4.6 MMOL/L (3.5-5.1); Sodium 140 MMOL/L (136-145); Total Protein 7.9 G/DL (6.4-8.3)
[2018-04-14] MEDS: DOCUSATE SODIUM 100 MG/10 ML UDCUP PEG SCH ×2 (09:24→22:00)
[2018-04-14] MEDS: LANSOPRAZOLE ODT 30 MG TABLET PEG SCH (09:24)
[2018-04-14] MEDS: guaiFENesin 200 MG/10 ML UDCUP PEG SCH ×3 (09:38→22:00)
[2018-04-14] MEDS: SODIUM CHLORIDE 0.9% 1,000 ML IV SCH (11:03)
[2018-04-14] MEDS: ENOXAPARIN 40 MG/0.4 ML SYRINGE SUBCUT SCH (22:01)
[2018-04-14] MEDS: LEVOFLOXACIN INJ 750 MG in PREMIX 1 EACH IV SCH (22:39)
[2018-04-15] MEDS: ALBUTEROL/IPRATROPIUM 3 ML NEB RESP TX SCH ×4 (00:38→20:51)
[2018-04-15] MEDS: SODIUM CHLORIDE 0.9% 1,000 ML IV SCH ×2 (01:20→16:13)
[2018-04-15] MEDS: CLINDAMYCIN INJ 600 MG in PREMIX 1 EACH IV SCH ×3 (03:51→18:33)
[2018-04-15 05:24] LABS: Calcium 8.3 MG/DL (8.5-10.1); Osmolality,Calculated 290.1 MOS/KG (273-304); Potassium 3.9 MMOL/L (3.5-5.1)
[2018-04-15 05:29] LABS: Calcium 8.3 MG/DL (8.5-10.1); Osmolality,Calculated 290.1 MOS/KG (273-304); Prealbumin 25.9 MG/DL (20-40)
[2018-04-15] MEDS: DOCUSATE SODIUM 100 MG/10 ML UDCUP PEG SCH ×2 (10:49→21:10)
[2018-04-15] MEDS: LANSOPRAZOLE ODT 30 MG TABLET PEG SCH (10:49)
[2018-04-15] MEDS: guaiFENesin 200 MG/10 ML UDCUP PEG SCH ×3 (10:50→21:10)
[2018-04-15] MEDS: ENOXAPARIN 40 MG/0.4 ML SYRINGE SUBCUT SCH (21:10)
[2018-04-15] MEDS: LEVOFLOXACIN INJ 750 MG in PREMIX 1 EACH IV SCH (21:15)
[2018-04-16] MEDS: ALBUTEROL/IPRATROPIUM 3 ML NEB RESP TX SCH ×4 (00:43→19:43)
[2018-04-16] MEDS: CLINDAMYCIN INJ 600 MG in PREMIX 1 EACH IV SCH ×3 (02:41→18:30)
[2018-04-16] MEDS: SODIUM CHLORIDE 0.9% 1,000 ML IV SCH ×2 (05:44→19:50)
[2018-04-16 06:02] LABS: Basophils % 0.5 % (0.0-0.8); Eosinophils # 0.1 10*3/uL (0.0-0.87); Eosinophils % 1.1 % (0.00-10.9); Hemoglobin 10.6 GM/DL (14.0-18.0); Immature Granulocytes % 0.7 %; Immature Granulocytes Absolute 0.06 #; Lymphocytes # 1.3 10*3/uL (1.4-4.0); Lymphocytes % 15.1 % (21.2-54.2); Mean Corpuscular HGB Conc 32.1 GM/DL (32-36); Mean Corpuscular Hemoglobin 31 PG (27-34); Mean Corpuscular Volume 95.9 FL (87-102); Mean Platelet Volume 10.6 FL (9.6-12.0); Monocytes # 0.8 10*3/uL (0.11-0.8); Monocytes % 8.5 % (1.7-12.7); Neutrophils # 6.5 10*3/uL (1.4-7.4); Neutrophils % 74.1 % (38.7-73.9); Platelet Count 258 T/CUMM (130-400); Red Blood Count 3.44 MC/CUMM (3.8-5.5); Red Cell Distribution Width 16.7 % (9.3-17.3); White Blood Count 8.8 T/CUMM (4-12)
[2018-04-16 06:25] LABS: Calcium 8.6 MG/DL (8.5-10.1); Osmolality,Calculated 283.4 MOS/KG (273-304); Potassium 4.1 MMOL/L (3.5-5.1)
[2018-04-16] MEDS: LANSOPRAZOLE ODT 30 MG TABLET PEG SCH (10:32)
[2018-04-16] MEDS: guaiFENesin 200 MG/10 ML UDCUP PEG SCH ×3 (10:32→21:09)
[2018-04-16] MEDS: DOCUSATE SODIUM 100 MG/10 ML UDCUP PEG SCH ×2 (10:32→21:09)
[2018-04-16] MEDS: AZTREONAM 1,000 MG in SYRINGE 1 EACH IV SCH ×2 (12:39→22:58)
[2018-04-16] MEDS: ACETAMINOPHEN 325 MG TABLET PO PRN (19:50)
[2018-04-16] MEDS: ENOXAPARIN 40 MG/0.4 ML SYRINGE SUBCUT SCH (21:09)
[2018-04-17] MEDS: ALBUTEROL/IPRATROPIUM 3 ML NEB RESP TX SCH ×4 (02:31→19:23)
[2018-04-17] MEDS: CLINDAMYCIN INJ 600 MG in PREMIX 1 EACH IV SCH ×3 (03:25→18:04)
[2018-04-17] MEDS: LANSOPRAZOLE ODT 30 MG TABLET PEG SCH (09:57)
[2018-04-17] MEDS: DOCUSATE SODIUM 100 MG/10 ML UDCUP PEG SCH ×2 (09:58→21:05)
[2018-04-17] MEDS: guaiFENesin 200 MG/10 ML UDCUP PEG SCH ×3 (09:58→21:05)
[2018-04-17] MEDS: AZTREONAM 1,000 MG in SYRINGE 1 EACH IV SCH ×2 (11:22→23:15)
[2018-04-17] MEDS: MAGNESIUM HYDROXIDE SUSP 30 ML UDCUP PEG SCH (11:22)
[2018-04-17] MEDS: ACETAMINOPHEN 325 MG TABLET PO PRN (21:06)
[2018-04-17] MEDS: ENOXAPARIN 40 MG/0.4 ML SYRINGE SUBCUT SCH (21:07)
[2018-04-18] MEDS: SODIUM CHLORIDE 0.9% 1,000 ML IV SCH ×2 (00:09→15:09)
[2018-04-18] MEDS: ALBUTEROL/IPRATROPIUM 3 ML NEB RESP TX SCH ×4 (01:00→19:22)
[2018-04-18] MEDS: CLINDAMYCIN INJ 600 MG in PREMIX 1 EACH IV SCH ×3 (03:40→18:09)
[2018-04-18 05:30] LABS: Basophils # 0.1 10*3/uL (0.0-0.2); Basophils % 0.9 % (0.0-0.8); Eosinophils # 0.5 10*3/uL (0.0-0.87); Eosinophils % 6.2 % (0.00-10.9); Hematocrit 35.9 VOL% (42.0-52.0); Hemoglobin 11.9 GM/DL (14.0-18.0); Immature Granulocytes % 0.7 %; Immature Granulocytes Absolute 0.06 #; Lymphocytes # 1.5 10*3/uL (1.4-4.0); Lymphocytes % 18.3 % (21.2-54.2); Mean Corpuscular HGB Conc 33.1 GM/DL (32-36); Mean Corpuscular Hemoglobin 31 PG (27-34); Mean Corpuscular Volume 93.5 FL (87-102); Mean Platelet Volume 10.4 FL (9.6-12.0); Monocytes # 0.7 10*3/uL (0.11-0.8); Monocytes % 8.4 % (1.7-12.7); Neutrophils # 5.3 10*3/uL (1.4-7.4); Neutrophils % 65.5 % (38.7-73.9); Platelet Count 249 T/CUMM (130-400); Red Blood Count 3.84 MC/CUMM (3.8-5.5); Red Cell Distribution Width 16.7 % (9.3-17.3); White Blood Count 8.1 T/CUMM (4-12)
[2018-04-18 05:59] LABS: Albumin 2.2 G/DL (3.4-5.0); Bilirubin,Total 0.5 MG/DL (0.2-1.0); Calcium 8.5 MG/DL (8.5-10.1); Osmolality,Calculated 281.4 MOS/KG (273-304); Potassium 4.1 MMOL/L (3.5-5.1); Total Protein 6.6 G/DL (6.4-8.3)
[2018-04-18] MEDS: MAGNESIUM HYDROXIDE SUSP 30 ML UDCUP PEG SCH (10:42)
[2018-04-18] MEDS: DOCUSATE SODIUM 100 MG/10 ML UDCUP PEG SCH ×2 (10:42→22:23)
[2018-04-18] MEDS: AZTREONAM 1,000 MG in SYRINGE 1 EACH IV SCH ×2 (10:43→23:35)
[2018-04-18] MEDS: guaiFENesin 200 MG/10 ML UDCUP PEG SCH ×3 (10:43→22:23)
[2018-04-18] MEDS: LANSOPRAZOLE ODT 30 MG TABLET PEG SCH (10:43)
[2018-04-18] MEDS: ENOXAPARIN 40 MG/0.4 ML SYRINGE SUBCUT SCH (22:23)
[2018-04-19] MEDS: ALBUTEROL/IPRATROPIUM 3 ML NEB RESP TX SCH ×5 (00:34→23:58)
[2018-04-19] MEDS: CLINDAMYCIN INJ 600 MG in PREMIX 1 EACH IV SCH ×2 (03:26→10:20)
[2018-04-19] MEDS: SODIUM CHLORIDE 0.9% 1,000 ML IV SCH ×2 (03:27→08:58)
[2018-04-19] MEDS: LANSOPRAZOLE ODT 30 MG TABLET PEG SCH (09:02)
[2018-04-19] MEDS: DOCUSATE SODIUM 100 MG/10 ML UDCUP PEG SCH ×2 (09:02→21:50)
[2018-04-19] MEDS: guaiFENesin 200 MG/10 ML UDCUP PEG SCH ×3 (09:02→21:50)
[2018-04-19] MEDS: MAGNESIUM HYDROXIDE SUSP 30 ML UDCUP PEG SCH (09:02)
[2018-04-19] MEDS: AZTREONAM 1,000 MG in SYRINGE 1 EACH IV SCH (10:19)
[2018-04-19] MEDS: VANCOMYCIN INJ 750 MG in SODIUM CHLORIDE 0.9% 250 ML IV SCH (14:53)
[2018-04-19] MEDS: ENOXAPARIN 40 MG/0.4 ML SYRINGE SUBCUT SCH (21:50)
[2018-04-20] MEDS: AZTREONAM 1,000 MG in SYRINGE 1 EACH IV SCH ×2 (01:02→11:00)
[2018-04-20] MEDS: SODIUM CHLORIDE 0.9% 1,000 ML IV SCH ×2 (02:34→06:46)
[2018-04-20] MEDS: VANCOMYCIN INJ 750 MG in SODIUM CHLORIDE 0.9% 250 ML IV SCH (02:53)
[2018-04-20] MEDS: ALBUTEROL/IPRATROPIUM 3 ML NEB RESP TX SCH (07:10)
[2018-04-20] MEDS: MAGNESIUM HYDROXIDE SUSP 30 ML UDCUP PEG SCH (10:51)
[2018-04-20] MEDS: LANSOPRAZOLE ODT 30 MG TABLET PEG SCH (10:51)
[2018-04-20] MEDS: guaiFENesin 200 MG/10 ML UDCUP PEG SCH (10:52)
[2018-04-20] MEDS: DOCUSATE SODIUM 100 MG/10 ML UDCUP PEG SCH (10:52)
[2018-04-20 12:05] VITALS: BP 143/84
== END 2018-04-20 13:30 | DRG 178 ==
LOC: EDBD → EDUNIT# → N.ED 15:38 → N.EDINP 18:38 → N.2E 19:56

== ENCOUNTER 2018-07-25 02:17 | Inpatient (IN) ==
[2018-07-25] MEDS ORDERED: SODIUM CHLORIDE 0.9% 2,000 ML IV STA (02:43)
[2018-07-25] MEDS ORDERED: VANCOMYCIN INJ 750 MG in SODIUM CHLORIDE 0.9% 250 ML IV STA (02:43)
[2018-07-25] MEDS ORDERED: CEFEPIME 1,000 MG in SODIUM CHLORIDE 0.9% 100 ML IV STA (02:43)
[2018-07-25 03:12] LABS: Alanine Aminotransferase 42 U/L (16-61); Albumin 2.5 G/DL (3.4-5.0); Alkaline Phosphatase 133 U/L (45-117); Aspartate Amino Transferase 33 U/L (0-37); Basophils % 0.3 % (0.0-0.8); Calcium 9.5 MG/DL (8.5-10.1); Hematocrit 47.4 VOL% (42.0-52.0); Immature Granulocytes % 0.4 %; Immature Granulocytes Absolute 0.05 #; Lymphocytes # 0.8 10*3/uL (1.4-4.0); Lymphocytes % 6.7 % (21.2-54.2); Mean Corpuscular HGB Conc 29.5 GM/DL (32-36); Mean Corpuscular Hemoglobin 31 PG (27-34); Mean Corpuscular Volume 105.5 FL (87-102); Mean Platelet Volume 12.7 FL (9.6-12.0); Monocytes # 1.1 10*3/uL (0.11-0.8); Monocytes % 9.3 % (1.7-12.7); NRBC # 0.02 10*3/uL; Neutrophils % 83.3 % (38.7-73.9); Platelet Count 200 T/CUMM (130-400); Red Blood Count 4.53 MC/CUMM (3.8-5.5); Red Cell Distribution Width 14.6 % (9.3-17.3); Total Protein 7.7 G/DL (6.4-8.3)
[2018-07-25 03:13] LABS: Blood Urea Nitrogen 143 MG/DL (7-18); Glucose 127 MG/DL (74-106); Hemoglobin 14.3 GM/DL (14.0-18.0); Osmolality,Calculated 381.3 MOS/KG (273-304); Potassium 4.5 MMOL/L (3.5-5.1)
[2018-07-25 03:16] LABS: Sodium 169 MMOL/L (136-145)
[2018-07-25 03:21] LABS: Allen Test Positive; Pt O2 Delivery Device Ventilator
[2018-07-25 03:40] LABS: Apearance,Urine CLOUDY (Clear); Bacteria,Urine Many /HPF (Few); Bilirubin,Urine Negative (Negative); Blood, Urine Moderate mg/dL (Negative); Glucose,Urine (UA) Negative (Negative); Ketones,Urine Negative (Negative); Nitrite,Urine Negative (Negative); Protein,Urine 100 MG/DL; RBC,Urine 120 /HPF (0-4); Urine Color Amber (Yellow); Urine Specific Gravity 1.012 (1.001-1.035); Urine Urobilinogen < 2.0 EU/DL (0.2-1.0); WBC,Urine 1039 /HPF (0-6)
[2018-07-25 03:50] LABS: Lactic Acid 2.9 MMOL/L (0.4-2.0)
[2018-07-25 03:56] LABS: ABG Base Excess 0.4 MMOL/L (-2.5-2.5); ABG HCO3 24.7 MMOL/L (20-26); ABG Oxygen Saturation 98.3 % (95-100); ABG PCO2 40.8 MM HG (35-48); ABG PH 7.399 (7.35-7.45); ABG TCO2 22.1 MMOL/L (23-27)
[2018-07-25] MEDS ORDERED: ROCURONIUM 100 MG/10 ML VIAL IV ONE (04:16)
[2018-07-25] MEDS ORDERED: ETOMIDATE 20 MG/10 ML VIAL IV ONE (04:16)
[2018-07-25] MEDS ORDERED: ONDANSETRON 4 MG/2 ML VIAL IV PRN (04:25)
[2018-07-25] MEDS ORDERED: SODIUM CHLORIDE 0.9% 1,000 ML IV SCH (04:30)
[2018-07-25] MEDS ORDERED: PROPOFOL 1,000 MG/100 ML BOTTLE IV ONE (04:41)
[2018-07-25] MEDS: PROPOFOL 1,000 MG/100 ML BOTTLE IV SCH ×2 (05:00→11:30)
[2018-07-25] MEDS ORDERED: PROPOFOL 1,000 MG/100 ML BOTTLE IV SCH (05:00)
[2018-07-25] MEDS: SODIUM CHLORIDE 0.45% 1,000 ML IV SCH ×3 (07:01→21:17)
[2018-07-25] MEDS: ALBUTEROL/IPRATROPIUM 3 ML NEB RESP TX SCH ×3 (07:10→19:29)
[2018-07-25] MEDS: ACETAMINOPHEN 325 MG TABLET PO PRN (07:10)
[2018-07-25] MEDS ORDERED: NOREPINEPHRINE 4 MG/4 ML VIAL IV ONE (07:24)
[2018-07-25] MEDS: NOREPINEPHRINE 16 MG in SODIUM CHLORIDE 0.9% 234 ML IV PRN ×2 (07:30→21:20)
[2018-07-25 08:17] LABS: Calcium 8.2 MG/DL (8.5-10.1); Osmolality,Calculated 378.2 MOS/KG (273-304); Potassium 3.8 MMOL/L (3.5-5.1)
[2018-07-25 08:17] LABS: ABG HCO3 25.3 MMOL/L (20-26); ABG Oxygen Saturation 98.9 % (95-100); ABG PCO2 30.5 MM HG (35-48); ABG PH 7.495 (7.35-7.45); ABG TCO2 20.7 MMOL/L (23-27)
[2018-07-25 08:19] LABS: Basophils % 0.3 % (0.0-0.8); Hematocrit 40.5 VOL% (42.0-52.0); Immature Granulocytes % 0.3 %; Immature Granulocytes Absolute 0.02 #; Lymphocytes # 1.5 10*3/uL (1.4-4.0); Lymphocytes % 19.5 % (21.2-54.2); Mean Corpuscular HGB Conc 30.4 GM/DL (32-36); Mean Corpuscular Hemoglobin 31 PG (27-34); Mean Corpuscular Volume 102.5 FL (87-102); Mean Platelet Volume 13.1 FL (9.6-12.0); Monocytes # 0.6 10*3/uL (0.11-0.8); Monocytes % 7.9 % (1.7-12.7); NRBC # 0.03 10*3/uL; Neutrophils # 5.5 10*3/uL (1.4-7.4); Platelet Count 197 T/CUMM (130-400); Red Blood Count 3.95 MC/CUMM (3.8-5.5); Red Cell Distribution Width 14.8 % (9.3-17.3); White Blood Count 7.6 T/CUMM (4-12)
[2018-07-25 08:20] LABS: Hemoglobin 12.3 GM/DL (14.0-18.0)
[2018-07-25 08:21] LABS: Lactic Acid 3.8 MMOL/L (0.4-2.0)
[2018-07-25 08:40] LABS: Atypical Lymphocytes Few; Band Neutrophils 13 % (0-10); Lymphocytes 24 % (20-55); Segmented Neutrophils 52 % (50-85); Total Cells Counted 100
[2018-07-25 08:41] LABS: Macrocytosis Slight
[2018-07-25 08:42] LABS: Platelet Estimate Adequate
[2018-07-25] MEDS ORDERED: MEROPENEM 500 MG in SODIUM CHLORIDE 0.9% 100 ML IV SCH (09:00)
[2018-07-25] MEDS ORDERED: ENOXAPARIN 30 MG/0.3 ML SYRINGE SUBCUT SCH (09:00)
[2018-07-25] MEDS: ACETAMINOPHEN 325 MG/10.15 ML UDCUP PO PRN ×2 (10:00→17:21)
[2018-07-25] MEDS: PANTOPRAZOLE 40 MG VIAL IV SCH (10:01)
[2018-07-25] MEDS: DOCUSATE SODIUM 100 MG/10 ML UDCUP PEG SCH ×2 (10:01→21:13)
[2018-07-25] MEDS: MAGNESIUM HYDROXIDE SUSP 30 ML UDCUP PEG SCH (10:01)
[2018-07-25] MEDS: ZINC OXIDE PASTE 113 GM TUBE TOP SCH ×2 (11:00→21:13)
[2018-07-25] MEDS ORDERED: HEPARIN/NACL 0.9% 2 UNITS/ML 500 ML IV ONE (11:42)
[2018-07-25] MEDS ORDERED: SODIUM CHLORIDE 0.45% 500 ML IV ONE (12:46)
[2018-07-25 13:00] LABS: Lactic Acid 3.1 MMOL/L (0.4-2.0)
[2018-07-25 16:51] LABS: Calcium 7.9 MG/DL (8.5-10.1); Potassium 3.5 MMOL/L (3.5-5.1)
[2018-07-25] MEDS: MEROPENEM 500 MG in SYRINGE 1 EACH IV SCH (21:13)
[2018-07-26] MEDS: PROPOFOL 1,000 MG/100 ML BOTTLE IV PRN ×2 (01:41→18:19)
[2018-07-26] MEDS: ACETAMINOPHEN 325 MG/10.15 ML UDCUP PO PRN ×3 (02:11→18:52)
[2018-07-26] MEDS: BACITRACIN OINT 0.9 GM PACK TOP SCH ×2 (02:52→08:43)
[2018-07-26] MEDS: SODIUM CHLORIDE 0.45% 1,000 ML IV SCH (03:24)
[2018-07-26 03:44] LABS: ABG Base Excess -1.9 MMOL/L (-2.5-2.5); ABG HCO3 22.8 MMOL/L (20-26); ABG Oxygen Saturation 99.8 % (95-100); ABG PCO2 35.5 MM HG (35-48); ABG PH 7.404 (7.35-7.45); ABG TCO2 19.1 MMOL/L (23-27)
[2018-07-26 04:17] LABS: Basophils # 0.1 10*3/uL (0.0-0.2); Basophils % 0.3 % (0.0-0.8); Eosinophils % 0.1 % (0.00-10.9); Hemoglobin 9.3 GM/DL (14.0-18.0); Immature Granulocytes % 1.4 %; Immature Granulocytes Absolute 0.25 #; Lymphocytes # 1.5 10*3/uL (1.4-4.0); Lymphocytes % 8.2 % (21.2-54.2); Mean Corpuscular Hemoglobin 32 PG (27-34); Mean Corpuscular Volume 105.1 FL (87-102); Monocytes # 0.6 10*3/uL (0.11-0.8); Monocytes % 3.1 % (1.7-12.7); Neutrophils # 16.1 10*3/uL (1.4-7.4); Neutrophils % 86.9 % (38.7-73.9); Platelet Count 142 T/CUMM (130-400); Red Blood Count 2.95 MC/CUMM (3.8-5.5); Red Cell Distribution Width 14.8 % (9.3-17.3); White Blood Count 18.5 T/CUMM (4-12)
[2018-07-26 04:34] LABS: Calcium 7.8 MG/DL (8.5-10.1); Osmolality,Calculated 350.3 MOS/KG (273-304); Potassium 3.5 MMOL/L (3.5-5.1)
[2018-07-26 04:46] LABS: Band Neutrophils 10 % (0-10); Hypochromasia 1+; Lymphocytes 9 % (20-55); Platelet Estimate Normal; Segmented Neutrophils 79 % (50-85); Total Cells Counted 100
[2018-07-26 04:47] LABS: Macrocytosis Slight
[2018-07-26] MEDS: ALBUTEROL/IPRATROPIUM 3 ML NEB RESP TX SCH ×3 (06:57→19:19)
[2018-07-26] MEDS: MAGNESIUM HYDROXIDE SUSP 30 ML UDCUP PEG SCH (08:43)
[2018-07-26] MEDS: DOCUSATE SODIUM 100 MG/10 ML UDCUP PEG SCH ×2 (08:43→21:38)
[2018-07-26] MEDS: PANTOPRAZOLE 40 MG VIAL IV SCH (08:44)
[2018-07-26] MEDS: ZINC OXIDE PASTE 113 GM TUBE TOP SCH ×2 (08:48→21:38)
[2018-07-26] MEDS: SODIUM CHLORIDE 23.4% CONC INJ 38.5 MEQ in STERILE WATER INJ 1,000 ML IV SCH ×2 (09:05→18:18)
[2018-07-26] MEDS: MEROPENEM 500 MG in SYRINGE 1 EACH IV SCH ×2 (10:00→21:38)
[2018-07-26] MEDS: CLINDAMYCIN INJ 300 MG in PREMIX 1 EACH IV SCH ×2 (11:27→18:19)
[2018-07-26 14:37] LABS: Calcium 7.9 MG/DL (8.5-10.1); Osmolality,Calculated 336.7 MOS/KG (273-304); Potassium 3.4 MMOL/L (3.5-5.1)
[2018-07-26] MEDS: NOREPINEPHRINE 16 MG in SODIUM CHLORIDE 0.9% 234 ML IV PRN (15:13)
[2018-07-26] MEDS ORDERED: POTASSIUM CHLORIDE 20 MEQ TABLET PO ONE (16:43)
[2018-07-27] MEDS: BACITRACIN OINT 0.9 GM PACK TOP SCH ×3 (02:20→22:10)
[2018-07-27] MEDS: SODIUM CHLORIDE 23.4% CONC INJ 38.5 MEQ in STERILE WATER INJ 1,000 ML IV SCH (02:55)
[2018-07-27] MEDS: CLINDAMYCIN INJ 300 MG in PREMIX 1 EACH IV SCH ×2 (02:56→17:39)
[2018-07-27 05:12] LABS: ABG Base Excess -3.7 MMOL/L (-2.5-2.5); ABG HCO3 21.4 MMOL/L (20-26); ABG PCO2 32.7 MM HG (35-48); ABG PH 7.401 (7.35-7.45); ABG TCO2 18.2 MMOL/L (23-27)
[2018-07-27 05:12] LABS: Basophils % 0.2 % (0.0-0.8); Eosinophils # 0.2 10*3/uL (0.0-0.87); Eosinophils % 1.2 % (0.00-10.9); Hematocrit 30.8 VOL% (42.0-52.0); Hemoglobin 9.6 GM/DL (14.0-18.0); Immature Granulocytes Absolute 0.39 #; Lymphocytes # 1.4 10*3/uL (1.4-4.0); Lymphocytes % 7.2 % (21.2-54.2); Mean Corpuscular HGB Conc 31.2 GM/DL (32-36); Mean Corpuscular Hemoglobin 32 PG (27-34); Mean Corpuscular Volume 104.1 FL (87-102); Monocytes # 0.7 10*3/uL (0.11-0.8); Monocytes % 3.3 % (1.7-12.7); NRBC # 0.04 10*3/uL; Neutrophils # 17.3 10*3/uL (1.4-7.4); Neutrophils % 86.1 % (38.7-73.9); Platelet Count 129 T/CUMM (130-400); Red Blood Count 2.96 MC/CUMM (3.8-5.5); Red Cell Distribution Width 14.5 % (9.3-17.3)
[2018-07-27 05:31] LABS: Calcium 7.8 MG/DL (8.5-10.1); Osmolality,Calculated 321.3 MOS/KG (273-304); Potassium 4.3 MMOL/L (3.5-5.1)
[2018-07-27 05:33] LABS: Hypochromasia 1+; Macrocytosis Slight
[2018-07-27] MEDS: ALBUTEROL/IPRATROPIUM 3 ML NEB RESP TX SCH ×3 (07:03→19:05)
[2018-07-27] MEDS ORDERED: GLUCAGON 1 MG VIAL IM PRN (08:07)
[2018-07-27] MEDS ORDERED: VANCOMYCIN INJ 750 MG in SODIUM CHLORIDE 0.9% 250 ML IV SCH (09:00)
[2018-07-27] MEDS: DOCUSATE SODIUM 100 MG/10 ML UDCUP PEG SCH ×2 (09:27→21:26)
[2018-07-27] MEDS: MAGNESIUM HYDROXIDE SUSP 30 ML UDCUP PEG SCH (09:27)
[2018-07-27] MEDS: ZINC OXIDE PASTE 113 GM TUBE TOP SCH ×2 (09:28→21:26)
[2018-07-27] MEDS: PANTOPRAZOLE 40 MG VIAL IV SCH (09:28)
[2018-07-27] MEDS: MEROPENEM 500 MG in SYRINGE 1 EACH IV SCH ×2 (09:29→21:25)
[2018-07-27] MEDS: ACETAMINOPHEN 325 MG/10.15 ML UDCUP PO PRN ×2 (11:59→16:46)
[2018-07-27] MEDS: NOREPINEPHRINE 16 MG in SODIUM CHLORIDE 0.9% 234 ML IV PRN (12:14)
[2018-07-27] MEDS: PROPOFOL 1,000 MG/100 ML BOTTLE IV PRN (14:54)
[2018-07-27] MEDS: VANCOMYCIN INJ 1,000 MG in SODIUM CHLORIDE 0.9% 250 ML IV SCH (15:31)
[2018-07-27 16:50] LABS: Calcium 8.2 MG/DL (8.5-10.1); Osmolality,Calculated 323.2 MOS/KG (273-304); Potassium 3.5 MMOL/L (3.5-5.1)
[2018-07-28] MEDS: ACETAMINOPHEN 325 MG TABLET PO PRN (01:17)
[2018-07-28 03:45] LABS: Calcium 8.4 MG/DL (8.5-10.1); Osmolality,Calculated 320.2 MOS/KG (273-304); Potassium 3.8 MMOL/L (3.5-5.1)
[2018-07-28 04:07] LABS: Prealbumin 11.3 MG/DL (20-40)
[2018-07-28 04:40] LABS: Basophils % 0.2 % (0.0-0.8); Eosinophils # 0.2 10*3/uL (0.0-0.87); Eosinophils % 1.9 % (0.00-10.9); Hematocrit 31.4 VOL% (42.0-52.0); Hemoglobin 9.8 GM/DL (14.0-18.0); Immature Granulocytes % 0.8 %; Lymphocytes # 1.1 10*3/uL (1.4-4.0); Lymphocytes % 8.2 % (21.2-54.2); Mean Corpuscular HGB Conc 31.2 GM/DL (32-36); Mean Corpuscular Hemoglobin 31 PG (27-34); Mean Corpuscular Volume 99.7 FL (87-102); Mean Platelet Volume 13.3 FL (9.6-12.0); Monocytes # 0.5 10*3/uL (0.11-0.8); Monocytes % 3.9 % (1.7-12.7); Platelet Count 148 T/CUMM (130-400); Red Blood Count 3.15 MC/CUMM (3.8-5.5); Red Cell Distribution Width 14.3 % (9.3-17.3)
[2018-07-28 04:47] LABS: ABG Base Excess -0.7 MMOL/L (-2.5-2.5); ABG HCO3 21.9 MMOL/L (20-26); ABG Oxygen Saturation 97.5 % (95-100); ABG PCO2 29.6 MM HG (35-48); ABG PH 7.488 (7.35-7.45); ABG PO2 102.9 MM HG (80-95); ABG TCO2 22.9 MMOL/L (23-27); Pt O2 Delivery Device Ventilator
[2018-07-28 05:03] LABS: Band Neutrophils 2 % (0-10); Eosinophils 1 % (0-10); Hypochromasia 1+; Lymphocytes 8 % (20-55); Macrocytosis Slight; Nucleated Red Blood Cells 1 (0-5); Platelet Estimate Adequate; Segmented Neutrophils 86 % (50-85); Total Cells Counted 100
[2018-07-28] MEDS: PROPOFOL 1,000 MG/100 ML BOTTLE IV PRN ×2 (06:27→16:58)
[2018-07-28] MEDS: ALBUTEROL/IPRATROPIUM 3 ML NEB RESP TX SCH ×3 (07:05→19:32)
[2018-07-28] MEDS: ACETAMINOPHEN 325 MG/10.15 ML UDCUP PO PRN ×2 (07:15→23:51)
[2018-07-28] MEDS: MEROPENEM 1,000 MG in SODIUM CHLORIDE 0.9% 100 ML IV SCH ×2 (09:39→16:50)
[2018-07-28] MEDS: MAGNESIUM HYDROXIDE SUSP 30 ML UDCUP PEG SCH (09:55)
[2018-07-28] MEDS: DOCUSATE SODIUM 100 MG/10 ML UDCUP PEG SCH ×2 (09:56→21:04)
[2018-07-28] MEDS: ZINC OXIDE PASTE 113 GM TUBE TOP SCH ×2 (09:57→21:04)
[2018-07-28] MEDS ORDERED: POTASSIUM PHOSPHATE 15 MMOL in SODIUM CHLORIDE 0.9% 100 ML IV ONE (10:00)
[2018-07-28] MEDS: PANTOPRAZOLE 40 MG VIAL IV SCH (10:01)
[2018-07-28] MEDS: BACITRACIN OINT 0.9 GM PACK TOP SCH (10:02)
[2018-07-28] MEDS: SODIUM CHLORIDE 23.4% CONC INJ 38.5 MEQ in STERILE WATER INJ 1,000 ML IV SCH ×2 (10:19→21:04)
[2018-07-28] MEDS: VANCOMYCIN INJ 1,000 MG in SODIUM CHLORIDE 0.9% 250 ML IV SCH (14:24)
[2018-07-28 14:31] LABS: Calcium 8.5 MG/DL (8.5-10.1); Osmolality,Calculated 311.6 MOS/KG (273-304); Potassium 4.3 MMOL/L (3.5-5.1)
[2018-07-28] MEDS: NOREPINEPHRINE 16 MG in SODIUM CHLORIDE 0.9% 234 ML IV PRN (21:02)
[2018-07-29] MEDS: MEROPENEM 1,000 MG in SODIUM CHLORIDE 0.9% 100 ML IV SCH ×3 (00:03→15:50)
[2018-07-29] MEDS: BACITRACIN OINT 0.9 GM PACK TOP SCH ×2 (03:30→09:00)
[2018-07-29 04:13] LABS: Basophils % 0.3 % (0.0-0.8); Eosinophils # 0.4 10*3/uL (0.0-0.87); Eosinophils % 4.1 % (0.00-10.9); Hemoglobin 9.5 GM/DL (14.0-18.0); Immature Granulocytes % 1.3 %; Immature Granulocytes Absolute 0.12 #; Lymphocytes # 1.7 10*3/uL (1.4-4.0); Lymphocytes % 17.9 % (21.2-54.2); Mean Corpuscular HGB Conc 30.6 GM/DL (32-36); Mean Corpuscular Hemoglobin 31 PG (27-34); Mean Platelet Volume 11.7 FL (9.6-12.0); Monocytes # 0.6 10*3/uL (0.11-0.8); Neutrophils # 6.8 10*3/uL (1.4-7.4); Neutrophils % 70.4 % (38.7-73.9); Platelet Count 144 T/CUMM (130-400); Red Blood Count 3.07 MC/CUMM (3.8-5.5); Red Cell Distribution Width 13.9 % (9.3-17.3); White Blood Count 9.6 T/CUMM (4-12)
[2018-07-29 04:39] LABS: Calcium 8.2 MG/DL (8.5-10.1); Osmolality,Calculated 304.9 MOS/KG (273-304); Potassium 3.8 MMOL/L (3.5-5.1)
[2018-07-29 05:12] LABS: ABG HCO3 23.6 MMOL/L (20-26); ABG Oxygen Saturation 97.9 % (95-100); ABG PCO2 35.3 MM HG (35-48); ABG TCO2 20.1 MMOL/L (23-27)
[2018-07-29] MEDS: SODIUM CHLORIDE 23.4% CONC INJ 38.5 MEQ in STERILE WATER INJ 1,000 ML IV SCH ×2 (06:36→16:15)
[2018-07-29] MEDS: PROPOFOL 1,000 MG/100 ML BOTTLE IV PRN (06:37)
[2018-07-29] MEDS: ALBUTEROL/IPRATROPIUM 3 ML NEB RESP TX SCH ×3 (07:35→19:26)
[2018-07-29] MEDS: PANTOPRAZOLE 40 MG VIAL IV SCH (08:45)
[2018-07-29] MEDS: MAGNESIUM HYDROXIDE SUSP 30 ML UDCUP PEG SCH (08:58)
[2018-07-29] MEDS: DOCUSATE SODIUM 100 MG/10 ML UDCUP PEG SCH ×2 (08:58→20:59)
[2018-07-29] MEDS: ZINC OXIDE PASTE 113 GM TUBE TOP SCH ×2 (11:15→21:38)
[2018-07-29] MEDS: VANCOMYCIN INJ 1,000 MG in SODIUM CHLORIDE 0.9% 250 ML IV SCH (14:30)
[2018-07-29] MEDS: DEXTROSE 50% 25 GM/50 ML VIAL IV PRN (18:30)
[2018-07-29] MEDS: ACETAMINOPHEN 325 MG/10.15 ML UDCUP PO PRN (20:00)
[2018-07-30] MEDS: DEXTROSE 50% 25 GM/50 ML VIAL IV PRN ×2 (00:15→04:58)
[2018-07-30] MEDS: MEROPENEM 1,000 MG in SODIUM CHLORIDE 0.9% 100 ML IV SCH ×3 (00:15→16:00)
[2018-07-30] MEDS: PROPOFOL 1,000 MG/100 ML BOTTLE IV PRN ×2 (02:31→17:00)
[2018-07-30 03:12] LABS: ABG Base Excess -0.9 MMOL/L (-2.5-2.5); ABG HCO3 23.7 MMOL/L (20-26); ABG Oxygen Saturation 98.4 % (95-100); ABG PCO2 33.7 MM HG (35-48); ABG PH 7.439 (7.35-7.45); ABG TCO2 20.9 MMOL/L (23-27); Allen Test Positive; Pt O2 Delivery Device Ventilator
[2018-07-30 04:23] LABS: Calcium 8.1 MG/DL (8.5-10.1); Osmolality,Calculated 293.3 MOS/KG (273-304); Potassium 3.4 MMOL/L (3.5-5.1)
[2018-07-30] MEDS: ALBUTEROL/IPRATROPIUM 3 ML NEB RESP TX SCH ×3 (07:28→19:10)
[2018-07-30] MEDS: DEXTROSE 5% 1,000 ML IV SCH (08:00)
[2018-07-30] MEDS: POTASSIUM CHLORIDE RIDER 20 MEQ in PREMIX 1 EACH IV PRN (08:05)
[2018-07-30] MEDS: MAGNESIUM HYDROXIDE SUSP 30 ML UDCUP PEG SCH (09:00)
[2018-07-30] MEDS: POTASSIUM CHLORIDE RIDER 10 MEQ in PREMIX 1 EACH IV PRN (09:00)
[2018-07-30] MEDS: SODIUM CHLORIDE 23.4% CONC INJ 38.5 MEQ in STERILE WATER INJ 1,000 ML IV SCH ×3 (09:00→21:19)
[2018-07-30] MEDS: PANTOPRAZOLE 40 MG VIAL IV SCH (09:10)
[2018-07-30] MEDS: DOCUSATE SODIUM 100 MG/10 ML UDCUP PEG SCH ×2 (09:15→21:18)
[2018-07-30] MEDS: BACITRACIN OINT 0.9 GM PACK TOP SCH (11:45)
[2018-07-30] MEDS: ZINC OXIDE PASTE 113 GM TUBE TOP SCH ×2 (11:45→21:19)
[2018-07-30] MEDS: VANCOMYCIN INJ 1,000 MG in SODIUM CHLORIDE 0.9% 250 ML IV SCH (13:35)
[2018-07-30] MEDS: ACETAMINOPHEN 325 MG/10.15 ML UDCUP PO PRN (19:34)
[2018-07-31] MEDS: MEROPENEM 1,000 MG in SODIUM CHLORIDE 0.9% 100 ML IV SCH ×3 (00:09→15:52)
[2018-07-31] MEDS: PROPOFOL 1,000 MG/100 ML BOTTLE IV PRN ×3 (02:08→22:31)
[2018-07-31] MEDS: DEXTROSE 5% 1,000 ML IV SCH (03:04)
[2018-07-31 03:12] LABS: ABG Base Excess -0.1 MMOL/L (-2.5-2.5); ABG HCO3 23.5 MMOL/L (20-26); ABG Oxygen Saturation 97.9 % (95-100); ABG PCO2 34.4 MM HG (35-48); ABG PH 7.452 (7.35-7.45); ABG PO2 123.3 MM HG (80-95); ABG TCO2 24.5 MMOL/L (23-27)
[2018-07-31 03:59] LABS: Basophils % 0.4 % (0.0-0.8); Eosinophils # 0.6 10*3/uL (0.0-0.87); Eosinophils % 7.8 % (0.00-10.9); Hematocrit 28.8 VOL% (42.0-52.0); Hemoglobin 9.1 GM/DL (14.0-18.0); Immature Granulocytes % 2.2 %; Immature Granulocytes Absolute 0.17 #; Lymphocytes # 1.6 10*3/uL (1.4-4.0); Lymphocytes % 20.1 % (21.2-54.2); Mean Corpuscular HGB Conc 31.6 GM/DL (32-36); Mean Corpuscular Hemoglobin 31 PG (27-34); Mean Corpuscular Volume 98.3 FL (87-102); Mean Platelet Volume 11.6 FL (9.6-12.0); Monocytes # 0.6 10*3/uL (0.11-0.8); Monocytes % 7.5 % (1.7-12.7); NRBC # 0.02 10*3/uL; Neutrophils # 4.8 10*3/uL (1.4-7.4); Platelet Count 188 T/CUMM (130-400); Red Blood Count 2.93 MC/CUMM (3.8-5.5); Red Cell Distribution Width 13.4 % (9.3-17.3); White Blood Count 7.7 T/CUMM (4-12)
[2018-07-31 04:26] LABS: Calcium 8.3 MG/DL (8.5-10.1); Osmolality,Calculated 294.3 MOS/KG (273-304); Potassium 3.5 MMOL/L (3.5-5.1)
[2018-07-31] MEDS: POTASSIUM CHLORIDE RIDER 10 MEQ in PREMIX 1 EACH IV PRN (05:08)
[2018-07-31] MEDS: POTASSIUM CHLORIDE RIDER 20 MEQ in PREMIX 1 EACH IV PRN (05:40)
[2018-07-31] MEDS: ALBUTEROL/IPRATROPIUM 3 ML NEB RESP TX SCH ×3 (07:30→18:51)
[2018-07-31] MEDS ORDERED: LIDOCAINE 2% 20 ML VIAL RESP TX PRN (07:50)
[2018-07-31] MEDS: MAGNESIUM HYDROXIDE SUSP 30 ML UDCUP PEG SCH (09:56)
[2018-07-31] MEDS: DOCUSATE SODIUM 100 MG/10 ML UDCUP PEG SCH ×2 (09:56→21:33)
[2018-07-31] MEDS: BACITRACIN OINT 0.9 GM PACK TOP SCH (09:57)
[2018-07-31] MEDS: PANTOPRAZOLE 40 MG VIAL IV SCH (09:58)
[2018-07-31] MEDS: ZINC OXIDE PASTE 113 GM TUBE TOP SCH ×2 (09:58→21:33)
[2018-07-31] MEDS: SODIUM CHLORIDE 23.4% CONC INJ 38.5 MEQ in STERILE WATER INJ 1,000 ML IV SCH ×2 (11:45→20:25)
[2018-07-31] MEDS: VANCOMYCIN INJ 750 MG in SODIUM CHLORIDE 0.9% 250 ML IV SCH (18:30)
[2018-08-01] MEDS: DEXTROSE 5% 1,000 ML IV SCH ×2 (00:23→22:01)
[2018-08-01] MEDS: MEROPENEM 1,000 MG in SODIUM CHLORIDE 0.9% 100 ML IV SCH ×3 (00:24→16:34)
[2018-08-01] MEDS: NOREPINEPHRINE 16 MG in SODIUM CHLORIDE 0.9% 234 ML IV PRN (02:09)
[2018-08-01 03:08] LABS: ABG Base Excess -0.2 MMOL/L (-2.5-2.5); ABG HCO3 24.3 MMOL/L (20-26); ABG Oxygen Saturation 99.1 % (95-100); ABG PCO2 39.5 MM HG (35-48); ABG TCO2 22.2 MMOL/L (23-27); Allen Test Positive; Pt O2 Delivery Device Ventilator
[2018-08-01 05:03] LABS: Basophils % 0.4 % (0.0-0.8); Eosinophils # 0.6 10*3/uL (0.0-0.87); Hematocrit 29.9 VOL% (42.0-52.0); Hemoglobin 9.7 GM/DL (14.0-18.0); Immature Granulocytes Absolute 0.46 #; Lymphocytes # 1.9 10*3/uL (1.4-4.0); Mean Corpuscular HGB Conc 32.4 GM/DL (32-36); Mean Corpuscular Hemoglobin 31 PG (27-34); Mean Corpuscular Volume 96.5 FL (87-102); Mean Platelet Volume 11.4 FL (9.6-12.0); Monocytes # 0.8 10*3/uL (0.11-0.8); Monocytes % 8.2 % (1.7-12.7); Neutrophils # 5.6 10*3/uL (1.4-7.4); Neutrophils % 60.4 % (38.7-73.9); Platelet Count 222 T/CUMM (130-400); Red Cell Distribution Width 13.5 % (9.3-17.3); White Blood Count 9.3 T/CUMM (4-12)
[2018-08-01 05:14] LABS: Calcium 8.5 MG/DL (8.5-10.1); Osmolality,Calculated 290.6 MOS/KG (273-304); Potassium 3.9 MMOL/L (3.5-5.1)
[2018-08-01] MEDS: POTASSIUM CHLORIDE RIDER 20 MEQ in PREMIX 1 EACH IV PRN (05:36)
[2018-08-01] MEDS: SODIUM CHLORIDE 23.4% CONC INJ 38.5 MEQ in STERILE WATER INJ 1,000 ML IV SCH ×2 (06:29→15:33)
[2018-08-01] MEDS: ALBUTEROL/IPRATROPIUM 3 ML NEB RESP TX SCH ×3 (07:08→20:24)
[2018-08-01] MEDS: PROPOFOL 1,000 MG/100 ML BOTTLE IV PRN ×2 (07:52→15:33)
[2018-08-01] MEDS: BACITRACIN OINT 0.9 GM PACK TOP SCH (08:43)
[2018-08-01] MEDS: ZINC OXIDE PASTE 113 GM TUBE TOP SCH ×2 (08:43→22:00)
[2018-08-01] MEDS: DOCUSATE SODIUM 100 MG/10 ML UDCUP PEG SCH ×2 (08:43→20:22)
[2018-08-01] MEDS: PANTOPRAZOLE 40 MG VIAL IV SCH (08:44)
[2018-08-01] MEDS: MAGNESIUM HYDROXIDE SUSP 30 ML UDCUP PEG SCH (08:44)
[2018-08-01] MEDS: VANCOMYCIN INJ 750 MG in SODIUM CHLORIDE 0.9% 250 ML IV SCH (17:35)
[2018-08-02] MEDS: PROPOFOL 1,000 MG/100 ML BOTTLE IV PRN ×4 (00:05→23:36)
[2018-08-02] MEDS: MEROPENEM 1,000 MG in SODIUM CHLORIDE 0.9% 100 ML IV SCH ×4 (00:39→23:35)
[2018-08-02] MEDS: SODIUM CHLORIDE 23.4% CONC INJ 38.5 MEQ in STERILE WATER INJ 1,000 ML IV SCH ×3 (02:41→23:33)
[2018-08-02 04:24] LABS: ABG Base Excess 1.9 MMOL/L (-2.5-2.5); ABG HCO3 26.1 MMOL/L (20-26); ABG PCO2 37.8 MM HG (35-48); ABG PH 7.444 (7.35-7.45); ABG TCO2 23.6 MMOL/L (23-27)
[2018-08-02 05:38] LABS: Basophils % 0.3 % (0.0-0.8); Eosinophils # 0.4 10*3/uL (0.0-0.87); Eosinophils % 4.6 % (0.00-10.9); Hematocrit 29.4 VOL% (42.0-52.0); Hemoglobin 9.2 GM/DL (14.0-18.0); Immature Granulocytes % 5.4 %; Lymphocytes # 1.9 10*3/uL (1.4-4.0); Mean Corpuscular HGB Conc 31.3 GM/DL (32-36); Mean Corpuscular Hemoglobin 31 PG (27-34); Mean Corpuscular Volume 98.7 FL (87-102); Mean Platelet Volume 11.3 FL (9.6-12.0); Monocytes # 0.7 10*3/uL (0.11-0.8); Monocytes % 7.2 % (1.7-12.7); Neutrophils # 5.8 10*3/uL (1.4-7.4); Neutrophils % 62.5 % (38.7-73.9); Platelet Count 211 T/CUMM (130-400); Red Blood Count 2.98 MC/CUMM (3.8-5.5); Red Cell Distribution Width 13.8 % (9.3-17.3); White Blood Count 9.3 T/CUMM (4-12)
[2018-08-02 05:54] LABS: Calcium 9.1 MG/DL (8.5-10.1); Osmolality,Calculated 286.7 MOS/KG (273-304); Potassium 4.2 MMOL/L (3.5-5.1)
[2018-08-02 05:55] LABS: PT Patient Result 10.4 SECS; Partial Thromboplastin Time 29.5 SECS (0-40)
[2018-08-02 05:59] LABS: Eosinophils 4 % (0-10); Hypochromasia 1+; Lymphocytes 24 % (20-55); Platelet Estimate Adequate; Segmented Neutrophils 56 % (50-85); Total Cells Counted 100
[2018-08-02] MEDS: ALBUTEROL/IPRATROPIUM 3 ML NEB RESP TX SCH ×3 (07:00→18:46)
[2018-08-02] MEDS: ZINC OXIDE PASTE 113 GM TUBE TOP SCH ×2 (07:59→21:43)
[2018-08-02] MEDS: DOCUSATE SODIUM 100 MG/10 ML UDCUP PEG SCH ×2 (07:59→21:43)
[2018-08-02] MEDS: BACITRACIN OINT 0.9 GM PACK TOP SCH (08:00)
[2018-08-02] MEDS: MAGNESIUM HYDROXIDE SUSP 30 ML UDCUP PEG SCH (08:00)
[2018-08-02] MEDS: PANTOPRAZOLE 40 MG VIAL IV SCH (08:00)
[2018-08-02] MEDS: NOREPINEPHRINE 16 MG in SODIUM CHLORIDE 0.9% 234 ML IV PRN (15:00)
[2018-08-02] MEDS: VANCOMYCIN INJ 750 MG in SODIUM CHLORIDE 0.9% 250 ML IV SCH (18:09)
[2018-08-02] MEDS: DEXTROSE 5% 1,000 ML IV SCH (18:09)
[2018-08-03 04:04] LABS: ABG Base Excess 3.8 MMOL/L (-2.5-2.5); ABG HCO3 27.4 MMOL/L (20-26); ABG Oxygen Saturation 98.6 % (95-100); ABG PCO2 37.6 MM HG (35-48); ABG PH 7.481 (7.35-7.45); ABG TCO2 28.6 MMOL/L (23-27)
[2018-08-03 04:58] LABS: Calcium 8.7 MG/DL (8.5-10.1); Osmolality,Calculated 282.1 MOS/KG (273-304); Potassium 4.1 MMOL/L (3.5-5.1)
[2018-08-03] MEDS: PROPOFOL 1,000 MG/100 ML BOTTLE IV PRN (06:40)
[2018-08-03] MEDS: ALBUTEROL/IPRATROPIUM 3 ML NEB RESP TX SCH ×2 (06:47→12:39)
[2018-08-03 07:13] VITALS: BP 105/68
[2018-08-03] MEDS: MEROPENEM 1,000 MG in SODIUM CHLORIDE 0.9% 100 ML IV SCH (08:42)
[2018-08-03] MEDS: DOCUSATE SODIUM 100 MG/10 ML UDCUP PEG SCH (10:10)
[2018-08-03] MEDS: MAGNESIUM HYDROXIDE SUSP 30 ML UDCUP PEG SCH (10:10)
[2018-08-03] MEDS: BACITRACIN OINT 0.9 GM PACK TOP SCH (10:10)
[2018-08-03] MEDS: PANTOPRAZOLE 40 MG VIAL IV SCH (10:11)
[2018-08-03] MEDS: ZINC OXIDE PASTE 113 GM TUBE TOP SCH (10:11)
[2018-08-03] MEDS: SODIUM CHLORIDE 23.4% CONC INJ 38.5 MEQ in STERILE WATER INJ 1,000 ML IV SCH (10:22)
[2018-08-03] MEDS: DEXTROSE 5% 1,000 ML IV SCH (12:39)
== END 2018-08-03 13:25 | DRG 870 ==
LOC: EDUNIT# → EDBD → N.ED 02:17 → N.EDINP 04:25 → SUATTDRO 04:25 → N.ICU 05:18
PROVIDERS: ADMIT Internal Medicine; ATTEND Internal Medicine

== ENCOUNTER 2018-11-02 09:35 | Inpatient (IN) ==
[~2018-11-02 09:35] MED LIST: PIPERACILLIN/TAZOBACTAM 3,375 MG in SODIUM CHLORIDE 0.9% 100 ML IV STA
[2018-11-02] MEDS ORDERED: SODIUM CHLORIDE 0.9% 1,000 ML IV STA ×2 (09:36→09:37)
[2018-11-02] MEDS ORDERED: NOREPINEPHRINE 4 MG/4 ML VIAL IV ONE (09:37)
[2018-11-02] MEDS: NOREPINEPHRINE 8 MG in SODIUM CHLORIDE 0.9% 242 ML IV PRN ×2 (09:40→17:55)
[2018-11-02] MEDS ORDERED: LEVOFLOXACIN INJ 500 MG in PREMIX 1 EACH IV STA (10:08)
[2018-11-02] MEDS ORDERED: CLINDAMYCIN INJ 900 MG in PREMIX 1 EACH IV STA (10:08)
[2018-11-02 10:39] LABS: ABG Base Excess -0.8 MMOL/L (-2.5-2.5); ABG HCO3 23.8 MMOL/L (20-26); ABG Oxygen Saturation 99.8 % (95-100); ABG PCO2 37.7 MM HG (35-48); ABG PH 7.406 (7.35-7.45); ABG TCO2 21.5 MMOL/L (23-27)
[2018-11-02] MEDS ORDERED: ALBUTEROL 2.5 MG/3 ML NEB RESP TX PRN (10:40)
[2018-11-02] MEDS ORDERED: ONDANSETRON 4 MG/2 ML VIAL IV PRN (10:40)
[2018-11-02] MEDS ORDERED: ACETAMINOPHEN 325 MG TABLET PO PRN (10:40)
[2018-11-02] MEDS ORDERED: SODIUM CHLORIDE 0.9% 1,000 ML IV ONE (10:47)
[2018-11-02 10:54] LABS: Lactic Acid 2.1 MMOL/L (0.4-2.0)
[2018-11-02] MEDS ORDERED: NOREPINEPHRINE 8 MG in SODIUM CHLORIDE 0.9% 242 ML IV SCH (11:00)
[2018-11-02] MEDS ORDERED: LACTATED RINGERS 1,000 ML IV SCH (11:00)
[2018-11-02 11:01] LABS: Basophils # 0.1 10*3/uL (0.0-0.2); Basophils % 0.3 % (0.0-0.8); Eosinophils % 0.1 % (0.00-10.9); Hematocrit 33.9 VOL% (42.0-52.0); Lymphocytes # 0.9 10*3/uL (1.4-4.0); Lymphocytes % 4.6 % (21.2-54.2); Mean Corpuscular Hemoglobin 28 PG (27-34); Mean Corpuscular Volume 100.3 FL (87-102); Mean Platelet Volume 13.4 FL (9.6-12.0); Monocytes # 0.8 10*3/uL (0.11-0.8); Monocytes % 4.2 % (1.7-12.7); NRBC # 0.06 10*3/uL; Neutrophils # 17.3 10*3/uL (1.4-7.4); Neutrophils % 89.8 % (38.7-73.9); Platelet Count 376 T/CUMM (130-400); Red Blood Count 3.38 MC/CUMM (3.8-5.5); Red Cell Distribution Width 14.6 % (9.3-17.3); White Blood Count 19.3 T/CUMM (4-12)
[2018-11-02 11:02] LABS: Amorphous Crystals,Urine Occasional /HPF (Few); Apearance,Urine CLOUDY (Clear); Bacteria,Urine Few /HPF (Few); Bilirubin,Urine Negative (Negative); Blood, Urine Small mg/dL (Negative); Glucose,Urine (UA) Negative (Negative); Ketones,Urine Negative (Negative); Nitrite,Urine Negative (Negative); Protein,Urine 100 MG/DL; RBC,Urine 297 /HPF (0-4); Squamous Epithelial Cell,Urine Occasional /HPF (0-10); Urine Color Yellow (Yellow); Urine Specific Gravity 1.015 (1.001-1.035); Urine Urobilinogen < 2.0 EU/DL (0.2-1.0); WBC,Urine 3268 /HPF (0-6)
[2018-11-02 11:05] LABS: Hemoglobin 9.5 GM/DL (14.0-18.0)
[2018-11-02 11:09] LABS: Alanine Aminotransferase 77 U/L (16-61); Albumin 1.8 G/DL (3.4-5.0); Alkaline Phosphatase 130 U/L (45-117); Aspartate Amino Transferase 67 U/L (0-37); Bilirubin,Total < 0.39 MG/DL (0.2-1.0); Blood Urea Nitrogen 197 MG/DL (7-18); Calcium 8.5 MG/DL (8.5-10.1); Glucose 139 MG/DL (74-106); Osmolality,Calculated 385.5 MOS/KG (273-304); Potassium 5.1 MMOL/L (3.5-5.1)
[2018-11-02 11:12] LABS: Sodium 161 MMOL/L (136-145)
[2018-11-02] MEDS ORDERED: VANCOMYCIN INJ 1,000 MG in SODIUM CHLORIDE 0.9% 250 ML IV PRN (11:16)
[2018-11-02 11:26] LABS: Thyroid Stimulating Hormone 0.591 uIU/ml (0.358-3.74)
[2018-11-02] MEDS ORDERED: VANCOMYCIN INJ 1,000 MG in SODIUM CHLORIDE 0.9% 250 ML IV ONE (11:30)
[2018-11-02 11:37] LABS: Barbiturates Screen,Urine Negative (Negative); Benzodiazepines Screen,Urine Negative (Negative); Cannabinoid Screen,Urine Negative (Negative); Opiate Screen,Urine Negative (Negative); Phencyclidine Screen,Urine Negative (Negative)
[2018-11-02 11:54] LABS: Band Neutrophils 5 % (0-10); Hypochromasia 1+; Lymphocytes 3 % (20-55); Segmented Neutrophils 89 % (50-85); Total Cells Counted 100
[2018-11-02] MEDS: ALBUTEROL/IPRATROPIUM 3 ML NEB RESP TX SCH ×2 (12:21→20:43)
[2018-11-02] MEDS ORDERED: LIDOCAINE 1% 20 ML VIAL MISC INJ ONE (12:27)
[2018-11-02] MEDS ORDERED: LIDOCAINE 2% 20 ML VIAL RESP TX ONE (12:27)
[2018-11-02] MEDS ORDERED: DEXTROSE 5% 1,000 ML IV SCH (12:30)
[2018-11-02] MEDS: MEROPENEM 500 MG in SODIUM CHLORIDE 0.9% 100 ML IV SCH ×2 (13:01→23:29)
[2018-11-02] MEDS: PROPOFOL 1,000 MG/100 ML BOTTLE IV SCH ×2 (13:14→18:45)
[2018-11-02] MEDS ORDERED: INFLUENZA VIRUS VACCINE 0.5 ML SYRINGE IM ONE (13:52)
[2018-11-02] MEDS: DEXTROSE 5% 1,000 ML IV SCH ×2 (14:00→19:10)
[2018-11-02] MEDS: INSULIN REGULAR DRIP 100 ML IV PRN (15:33)
[2018-11-02] MEDS: COLLAGENASE OINT 30 GM TUBE TOP SCH (16:32)
[2018-11-02] MEDS: ENOXAPARIN 30 MG/0.3 ML SYRINGE SUBCUT SCH (16:47)
[2018-11-02] MEDS: PANTOPRAZOLE 40 MG VIAL IV SCH (16:47)
[2018-11-02] MEDS: GENTAMICIN 0.3% OPH SOLN 5 ML BOTTLE LEFT EYE SCH ×2 (16:47→21:22)
[2018-11-02] MEDS ORDERED: PIPERACILLIN/TAZOBACTAM 3,375 MG in SODIUM CHLORIDE 0.9% 100 ML IV SCH (17:00)
[2018-11-02] MEDS: CLINDAMYCIN INJ 600 MG in PREMIX 1 EACH IV SCH (18:46)
[2018-11-02] MEDS ORDERED: SERTRALINE 50 MG TABLET PEG SCH (20:00)
[2018-11-02] MEDS: ZINC OXIDE 16% PASTE 57 GM TUBE TOP SCH (21:22)
[2018-11-03] MEDS: ALBUTEROL/IPRATROPIUM 3 ML NEB RESP TX SCH ×3 (00:16→13:00)
[2018-11-03] MEDS: NOREPINEPHRINE 8 MG in SODIUM CHLORIDE 0.9% 242 ML IV PRN ×2 (01:47→09:43)
[2018-11-03] MEDS: CLINDAMYCIN INJ 600 MG in PREMIX 1 EACH IV SCH ×2 (04:32→11:40)
[2018-11-03] MEDS: DEXTROSE 5% 1,000 ML IV SCH ×3 (05:00→11:24)
[2018-11-03 05:22] LABS: ABG Base Excess -4.3 MMOL/L (-2.5-2.5); ABG HCO3 20.8 MMOL/L (20-26); ABG Oxygen Saturation 99.3 % (95-100); ABG PCO2 31.6 MM HG (35-48); ABG PH 7.403 (7.35-7.45); ABG TCO2 18.2 MMOL/L (23-27); Allen Test Positive; Pt O2 Delivery Device Ventilator
[2018-11-03 05:45] LABS: Albumin 1.4 G/DL (3.4-5.0); Bilirubin,Total 0.4 MG/DL (0.2-1.0); Calcium 8.5 MG/DL (8.5-10.1); Potassium 3.7 MMOL/L (3.5-5.1); Risk Ratio 2.25; Total Protein 6.8 G/DL (6.4-8.3); VLDL CHOLESTEROL 12.8 MG/DL
[2018-11-03 06:24] LABS: Basophils % 0.2 % (0.0-0.8); Eosinophils % 0.1 % (0.00-10.9); Hematocrit 30.5 VOL% (42.0-52.0); Immature Granulocytes % 1.1 %; Immature Granulocytes Absolute 0.21 #; Lymphocytes # 1.8 10*3/uL (1.4-4.0); Lymphocytes % 9.6 % (21.2-54.2); Mean Corpuscular HGB Conc 28.5 GM/DL (32-36); Mean Corpuscular Hemoglobin 29 PG (27-34); Mean Platelet Volume 13.2 FL (9.6-12.0); Monocytes # 0.8 10*3/uL (0.11-0.8); Monocytes % 4.3 % (1.7-12.7); NRBC # 0.04 10*3/uL; Neutrophils # 15.6 10*3/uL (1.4-7.4); Neutrophils % 84.7 % (38.7-73.9); Platelet Count 226 T/CUMM (130-400); Red Blood Count 3.05 MC/CUMM (3.8-5.5); Red Cell Distribution Width 14.6 % (9.3-17.3); White Blood Count 18.5 T/CUMM (4-12)
[2018-11-03 06:28] LABS: Hemoglobin 8.7 GM/DL (14.0-18.0)
[2018-11-03 06:45] LABS: Band Neutrophils 11 % (0-10); Lymphocytes 8 % (20-55); Metamyelocytes 2 %; Platelet Estimate Normal; Segmented Neutrophils 77 % (50-85); Total Cells Counted 100
[2018-11-03] MEDS: INSULIN REGULAR DRIP 100 ML IV PRN (06:55)
[2018-11-03] MEDS: GENTAMICIN 0.3% OPH SOLN 5 ML BOTTLE LEFT EYE SCH (09:33)
[2018-11-03] MEDS: ZINC OXIDE 16% PASTE 57 GM TUBE TOP SCH ×2 (09:35→21:16)
[2018-11-03] MEDS: COLLAGENASE OINT 30 GM TUBE TOP SCH (09:36)
[2018-11-03] MEDS ORDERED: SKIN HEALING OINT (AQUAPHOR) 50 GM TUBE TOP SCH (10:00)
[2018-11-03] MEDS: MEROPENEM 500 MG in SODIUM CHLORIDE 0.9% 100 ML IV SCH (11:09)
[2018-11-03] MEDS: ENOXAPARIN 30 MG/0.3 ML SYRINGE SUBCUT SCH (11:11)
[2018-11-03] MEDS: PANTOPRAZOLE 40 MG VIAL IV SCH (11:11)
[2018-11-03] MEDS ORDERED: ATROPINE 1 % OPH SOLN 5 ML BOTTLE SL PRN (14:14)
[2018-11-03] MEDS: SCOPOLAMINE 1.5 MG PATCH TRANSDERM SCH (14:27)
[2018-11-03] MEDS: fentaNYL 25 MCG/HR PATCH TRANSDERM SCH (14:29)
[2018-11-03] MEDS: MORPHINE 4 MG/1 ML VIAL IV PRN ×2 (14:34→16:37)
[2018-11-03] MEDS: PROPOFOL 1,000 MG/100 ML BOTTLE IV SCH (14:37)
[2018-11-03] MEDS: SODIUM CHLORIDE 0.9% IV PRN (14:45)
[2018-11-03] MEDS: MORPHINE IV PRN (14:45)
[2018-11-03] MEDS ORDERED: GENTAMICIN 0.3% OPH SOLN 5 ML BOTTLE BOTH EYES SCH (15:00)
[2018-11-03] MEDS: SODIUM HYPOCHLORITE 0.25% IRRIG 473 ML BOTTLE TOP SCH (16:42)
[2018-11-04] MEDS: ZINC OXIDE 16% PASTE 57 GM TUBE TOP SCH ×2 (11:53→21:24)
[2018-11-04] MEDS: SODIUM HYPOCHLORITE 0.25% IRRIG 473 ML BOTTLE TOP SCH (11:54)
[2018-11-05] MEDS: ZINC OXIDE 16% PASTE 57 GM TUBE TOP SCH ×2 (17:41→22:50)
[2018-11-05] MEDS: SODIUM HYPOCHLORITE 0.25% IRRIG 473 ML BOTTLE TOP SCH (17:41)
[2018-11-05] MEDS: COLLAGENASE OINT 30 GM TUBE TOP SCH (18:44)
[2018-11-06] MEDS: fentaNYL 25 MCG/HR PATCH TRANSDERM SCH (11:06)
[2018-11-06] MEDS: ZINC OXIDE 16% PASTE 57 GM TUBE TOP SCH (11:07)
[2018-11-06] MEDS: COLLAGENASE OINT 30 GM TUBE TOP SCH (11:07)
[2018-11-06] MEDS: SODIUM HYPOCHLORITE 0.25% IRRIG 473 ML BOTTLE TOP SCH (11:07)
[2018-11-06] MEDS: MORPHINE IV PRN (13:48)
[2018-11-06] MEDS: SODIUM CHLORIDE 0.9% IV PRN (13:48)
[2018-11-06] MEDS: SCOPOLAMINE 1.5 MG PATCH TRANSDERM SCH (14:30)
[2018-11-06] MEDS ORDERED: LORazepam 2 MG/1 ML VIAL IV ONE ×2 (22:14→22:33)
[2018-11-07] MEDS: SODIUM CHLORIDE 0.9% IV PRN (08:12)
[2018-11-07] MEDS: MORPHINE IV PRN (08:12)
[2018-11-07] MEDS: ZINC OXIDE 16% PASTE 57 GM TUBE TOP SCH ×2 (08:14→09:45)
[2018-11-07] MEDS: SODIUM HYPOCHLORITE 0.25% IRRIG 473 ML BOTTLE TOP SCH (09:46)
[2018-11-07] MEDS: COLLAGENASE OINT 30 GM TUBE TOP SCH (09:46)
[2018-11-07 11:03] VITALS: BP 74/37
== END 2018-11-07 11:55 | disposition expired | DRG 208 ==
LOC: N.ED 09:35 → N.EDINP 10:18 → SUATTDRO 10:18 → N.CC 11:34 → N.5E 11-04 13:50
PROVIDERS: ADMIT Internal Medicine; ATTEND Internal Medicine